=== PATIENT | male | born 1980 | race Caucasian/White ===

== ENCOUNTER 2020-06-03 07:35 | Outpatient (REF) | payer OTHER, SELFPAY ==
[2020-06-03 11:07] LABS: Anion Gap 12 (12-20); Blood Urea Nitrogen 19 mg/dL (9-16); Calcium 9.1 mg/dL (8.4-10.2); Carbon Dioxide 28 mmol/L (22-29); Chloride 101 mmol/L (96-108); Estimated Glomerular Filt Rate > 60; Glucose Fasting 92 mg/dL (60-99); Potassium 4.6 mmol/l (3.3-5.1); Sodium 136 mmol/L (135-145)
[2020-06-03 11:16] LABS: Microalbumin Urine < 5.0 mg/L
== END 2020-06-03 07:36 | disposition home or self-care (01) ==
LOC: HO.WFDLDS 07:35
PROVIDERS: PCP Family Medicine; Visit Provider Family Medicine
DX: I10 Essential (primary) hypertension (principal)
CPT/HCPCS: 80048; 82043

== ENCOUNTER → 2020-07-29 09:21 | Outpatient (BNVA) | payer OTHER, SELFPAY | PROVIDERS: PCP Family Medicine; Visit Provider Nurse Practitioner Family | DX: Z76.89 Persons encountering health services in other specified circumstances (principal) ==

== ENCOUNTER 2021-03-19 09:03 | Outpatient (REF) | payer OTHER, SELFPAY ==
[2021-03-19 11:45] LABS: Alanine Aminotransferase 33 U/L (0-40); Albumin Level 4.3 g/dL (3.5-5.0); Alkaline Phosphatase 48 U/L (39-117); Anion Gap 13 (12-20); Aspartate Amino Transferase 31 U/L (5-37); Bilirubin Total 0.9 mg/dL (0.0-1.0); Blood Urea Nitrogen 16 mg/dL (9-16); Calcium 9.7 mg/dL (8.4-10.2); Carbon Dioxide 27 mmol/L (22-29); Chloride 103 mmol/L (96-108); Cholesterol 222 mg/dL; Estimated Glomerular Filt Rate > 60; Glucose Fasting 95 mg/dL (60-99); HDL Cholesterol 37 mg/dL; LDL Cholesterol Calculated 137 mg/dl; Potassium 4.5 mmol/L (3.3-5.1); Sodium 138 mmol/L (135-145); Total Protein 7.4 g/dL (6.5-8.0); Triglycerides 242 mg/dL
[2021-03-19 12:10] LABS: TSH reflex Free T4 2.62 uIU/mL (0.32-4.0)
== END 2021-03-19 09:04 | disposition home or self-care (01) ==
LOC: HO.WFDLDS 09:03
PROVIDERS: Visit Provider Family Medicine
DX: Z00.00 Encounter for general adult medical examination without abnormal findings (principal)
CPT/HCPCS: 36415; 80053; 80061; 84443

== ENCOUNTER 2021-06-17 09:59 | Outpatient (REF) | payer OTHER, SELFPAY ==
[2021-06-17 11:26] LABS: Cholesterol 210 mg/dL; HDL Cholesterol 36 mg/dL; LDL Cholesterol Calculated 130 mg/dl; Triglycerides 223 mg/dL
[2021-06-17 11:47] LABS: Prostate Specific Antigen Scr 0.26 ng/mL (<0.05-4.0)
== END 2021-06-17 10:00 | disposition home or self-care (01) ==
LOC: HO.WFDLDS 09:59
PROVIDERS: Visit Provider Family Medicine
DX: Z00.00 Encounter for general adult medical examination without abnormal findings (principal); Z12.5 Encounter for screening for malignant neoplasm of prostate
CPT/HCPCS: 36415; 80061; 84153

== ENCOUNTER 2022-04-01 07:26 | Outpatient (REF) | payer OTHER, SELFPAY ==
[2022-04-01 11:50] LABS: Alanine Aminotransferase 38 U/L (0-40); Albumin Level 3.9 g/dL (3.5-5.0); Alkaline Phosphatase 58 U/L (39-117); Anion Gap 15 (12-20); Aspartate Amino Transferase 26 U/L (5-37); Blood Urea Nitrogen 20 mg/dL (9-16); Calcium 9.3 mg/dL (8.4-10.2); Carbon Dioxide 26 mmol/L (22-29); Chloride 101 mmol/L (96-108); Cholesterol 243 mg/dL; Estimated Glomerular Filt Rate > 60; Glucose Fasting 101 mg/dL (60-99); HDL Cholesterol 42 mg/dL; LDL Cholesterol Calculated 149 mg/dl; Potassium 4.9 mmol/L (3.3-5.1); Sodium 137 mmol/L (135-145); Total Protein 6.9 g/dL (6.5-8.0); Triglycerides 261 mg/dL
[2022-04-01 12:15] LABS: TSH reflex Free T4 2.67 uIU/mL (0.32-4.0)
[2022-04-01 12:27] LABS: Creatinine Urine 174.36 mg/dL; Microalbum/Creatinine Ratio Ur 5.7 ug/mg cr
== END 2022-04-01 07:27 | disposition home or self-care (01) ==
LOC: HO.WFDLDS 07:26
PROVIDERS: Visit Provider Family Medicine
DX: Z00.00 Encounter for general adult medical examination without abnormal findings (principal); I10 Essential (primary) hypertension
CPT/HCPCS: 36415; 80053; 80061; 82043; 84443

== ENCOUNTER 2022-06-10 09:03 | Outpatient (REF) | payer OTHER, SELFPAY ==
[2022-06-10 11:41] LABS: Cholesterol 145 mg/dL; HDL Cholesterol 32 mg/dL; LDL Cholesterol Calculated 69 mg/dl; Triglycerides 224 mg/dL
== END 2022-06-10 09:04 | disposition home or self-care (01) ==
LOC: HO.WFDLDS 09:03
PROVIDERS: Visit Provider Family Medicine
DX: Z00.00 Encounter for general adult medical examination without abnormal findings (principal)
CPT/HCPCS: 36415; 80061

== ENCOUNTER 2022-10-14 09:21 | Outpatient (REF) | payer OTHER, SELFPAY ==
--- NOTE | ~2022-10-14 | US_ITS ---
EXAMINATION: US ABDOMEN LIMITED CLINICAL INFORMATION: Right upper quadrant pain.. COMPARISON: None TECHNIQUE: Real-time imaging of the right upper quadrant abdominal viscera.: Doppler exam used. FINDINGS: PANCREAS: Obscured by bowel gas LIVER: Diffuse increased echogenicity of liver parenchyma due to fatty change. No focal liver lesion or intrahepatic bile duct dilatation. GALLBLADDER: Multiple small gallstones present. There is gallbladder wall thickening measuring 0.5 cm. Small volume of fluid in the gallbladder wall. Positive ultrasound Colbert's sign. Findings consistent with an acute cholecystitis. COMMON BILE DUCT: Normal in caliber measuring 0.3 cm in diameter. RIGHT KIDNEY: Normal. No hydronephrosis. No renal calculi or focal parenchymal lesions. The kidney measures 11.6 cm in maximum dimension. FREE FLUID: None. US/US abdomen limited IMPRESSION: 1. Cholelithiasis. Gallbladder wall thickening and small volume of fluid in the gallbladder wall. Positive ultrasound Colbert's sign. Findings consistent with an acute cholecystitis. 2. No bile duct dilatation. 3. Diffuse fatty change of liver.
[2022-10-14 11:43] LABS: MANUAL DIFF FLAG NO
[2022-10-14 12:06] LABS: Basophils Absolute Auto 0.1 X10*3/uL (0.0-0.2); Basophils Percent Auto 0.7 % (0-2); Eosinophils Percent Auto 0.2 % (0-4); Hematocrit 42.4 % (42.0-52.0); Hemoglobin 14.6 g/dl (14.0-18.0); Imm Gran Abs Auto 0.08 X10*3/uL (0.00-0.03); Imm Gran Pct Auto 0.6 % (0.0-0.4); Lymphocytes Absolute Auto 0.9 X10*3/uL (1.2-4.9); Lymphocytes Percent Auto 7.1 % (20-40); Mean Corpuscular HGB Conc 34.4 g/dl (31.0-36.0); Mean Corpuscular Hemoglobin 31.5 pg (27.0-33.0); Mean Corpuscular Volume 91.6 fL (80.0-98.0); Mean Platelet Volume 10.2 fL (9.4-12.4); Monocytes Absolute Auto 0.6 X10*3/uL (0.1-1.2); Monocytes Percent Auto 4.6 % (2-11); Neutrophils Absolute Auto 10.8 x10*3/uL (2.0-8.3); Neutrophils Percent Auto 86.8 % (45-73); Platelet Count 348 X10*3/uL (160-400); Red Blood Count 4.63 X10*6/uL (4.60-5.80); Red Cell Distribution Width 12.3 % (11.0-16.0); White Blood Count 12.5 X10*3/uL (4.8-10.8)
[2022-10-14 12:23] LABS: Alanine Aminotransferase 32 U/L (0-40); Albumin Level 4.6 g/dL (3.5-5.0); Alkaline Phosphatase 65 U/L (39-117); Amylase 24 U/L (28-100); Anion Gap 18 (12-20); Aspartate Amino Transferase 28 U/L (5-37); Bilirubin Total 1.2 mg/dL (0.0-1.0); Blood Urea Nitrogen 19 mg/dL (9-16); Calcium 9.8 mg/dL (8.4-10.2); Carbon Dioxide 24 mmol/L (22-29); Chloride 98 mmol/L (96-108); Estimated Glomerular Filt Rate > 60; Glucose Fasting 119 mg/dL (60-99); Lipase 16 U/L (8-78); Potassium 4.7 mmol/L (3.3-5.1); Sodium 135 mmol/L (135-145); Total Protein 7.6 g/dL (6.5-8.0)
== END 2022-10-14 09:22 | disposition home or self-care (01) ==
LOC: HO.WFDLDS 09:21
PROVIDERS: Visit Provider Nurse Practitioner Family
DX: R10.11 Right upper quadrant pain (principal)
CPT/HCPCS: 36415; 76705; 80053; 82150; 83690; 85025

== ENCOUNTER 2022-10-15 09:54 | Inpatient (IN) | payer OTHER, SELFPAY ==
[2022-10-15] VITALS (14 sets, daily range): BP systolic 97–150; BP diastolic 42–79; PULSE 75–106; RESP 14–20; TEMP 36.5–37.1; O2SAT 92–99; BMI 39.4; BMI 41.3
--- NOTE | 2022-10-15 11:03 | MHC.EDTECH ---
labs collected and sent
[2022-10-15 11:05] LABS: MANUAL DIFF FLAG NO
[2022-10-15 11:07] LABS: Basophils Absolute Auto 0.1 X10*3/uL (0.0-0.2); Basophils Percent Auto 0.5 % (0-2); Eosinophils Absolute Auto 0.1 X10*3/uL (0.0-0.4); Eosinophils Percent Auto 0.6 % (0-4); Hematocrit 43.8 % (42.0-52.0); Hemoglobin 14.8 g/dl (14.0-18.0); Imm Gran Abs Auto 0.06 X10*3/uL (0.00-0.03); Imm Gran Pct Auto 0.4 % (0.0-0.4); Lymphocytes Absolute Auto 0.9 X10*3/uL (1.2-4.9); Lymphocytes Percent Auto 6.5 % (20-40); Mean Corpuscular HGB Conc 33.8 g/dl (31.0-36.0); Mean Corpuscular Hemoglobin 31.1 pg (27.0-33.0); Mean Platelet Volume 9.4 fL (9.4-12.4); Monocytes Absolute Auto 1.2 X10*3/uL (0.1-1.2); Monocytes Percent Auto 8.2 % (2-11); Neutrophils Absolute Auto 12.1 x10*3/uL (2.0-8.3); Neutrophils Percent Auto 83.8 % (45-73); Platelet Count 347 X10*3/uL (160-400); Red Blood Count 4.76 X10*6/uL (4.60-5.80); Red Cell Distribution Width 12.3 % (11.0-16.0); White Blood Count 14.4 X10*3/uL (4.8-10.8)
[2022-10-15 11:33] LABS: Alanine Aminotransferase 28 U/L (0-40); Albumin Level 4.3 g/dL (3.5-5.0); Alkaline Phosphatase 75 U/L (39-117); Anion Gap 14 (12-20); Aspartate Amino Transferase 26 U/L (5-37); Blood Urea Nitrogen 11 mg/dL (9-16); Calcium 9.2 mg/dL (8.4-10.2); Carbon Dioxide 28 mmol/L (22-29); Chloride 99 mmol/L (96-108); Estimated Glomerular Filt Rate > 60; Glucose Random 101 mg/dL (60-115); Potassium 4.5 mmol/L (3.3-5.1); Sodium 136 mmol/L (135-145); Total Protein 7.7 g/dL (6.5-8.0)
--- NOTE | 2022-10-15 12:51 | ED_ITS ---
HPI - Abdominal Pain General Chief Complaint: Abdominal Pain Stated Complaint: enflamed gal bladder/stone Time Seen by Provider: 10/15/22 12:15 Source: patient Mode of arrival: ambulatory Limitations: no limitations History of Present Illness HPI narrative: 39-year-old male with history of hypertension, hyperlipidemia presents the ER with complaints of constant right upper quadrant abdominal pain since yesterday. He has had intermittent pain since Tuesday. He had a outpatient ultrasound yesterday which was concerning for acute cholecystitis and was referred into the ER for further evaluation. He does report decreased p.o. intake. No nausea, vomiting, fevers, urinary symptoms, diarrhea or constipation. Patient had crackers and Gatorade at 06:00 MD elicited complaint: abdominal pain Related Data Home Medications Medication Instructions Recorded Confirmed famotidine 20 mg tablet 20 mg PO DAILY 10/15/22 10/15/22 multivitamin 1 tab PO DAILY 10/15/22 10/15/22 Previous Rx's Medication Instructions Recorded lisinopril 20 1 tab PO DAILY 30 days #30 tabs 09/21/22 mg-hydrochlorothiazide 25 mg tablet atorvastatin 20 mg tablet 20 mg PO BEDTIME #30 tabs 09/22/22 Allergies Allergy/AdvReac Type Severity Reaction Status Date / Time No Known Allergies Allergy Unverified 10/14/22 08:53 Review of Systems Review of Systems Yes all other systems are reviewed and are negative Constitutional: Reports no additional constitutional complaints, Denies body ache(s), Denies chills, Denies fever(s), Denies headache(s) and Denies weakness Eyes: Reports no additional eye complaints and Denies change in vision Reports system reviewed and no additional complaints, except as documented, Denies dizziness, Denies headache(s), Denies nasal congestion, Denies nasal discharge and Denies neck pain Cardiovascular: Reports no additional cardiovascular complaints, Denies chest pain, Denies leg edema and Denies dyspnea Respiratory: Reports no additional respiratory complaints, Denies cough and De nies dyspnea Gastrointestinal: Reports no additional gastrointestinal complaints, Reports abdominal pain, Denies diarrhea, Denies nausea and Denies vomiting Genitourinary: Denies urinary incontinence Musculoskeletal: Reports no additional musculoskeletal complaints, Denies back pain, Denies arthralgias, Denies joint swelling, Denies neck pain, Denies numbness and Denies tingling Skin/Breast: Reports system reviewed and no additional complaints, except as docu and Denies rash Reports system reviewed and no additional complaints, except as documented, Denies dizziness, Denies headache(s), Denies numbness, Denies tingling and Denies weakness PMFSH Past Medical History Attestation statement: The following information was validated with the patient. Source: old records reviewed and nursing notes reviewed Surgical History History of hernia repair Social History Social History Housing: House Alcohol intake: current Alcohol intake frequency: a few times a week Patient Tobacco Use Status: Never used Tobacco Smoked in Last 30 Days: No e-Cigarette/Vaping Use: Never Used Second Hand Smoke Exposure: No Use of substances other than those prescribed or required for medical reasons: No Are you DNR?: No Advance Directives: Yes Advance Directives Information Provided: Yes Advance Directives on File: No Advance Directives Date on File: 10/15/22 Recently lost weight without trying: No Nutrition Risks: No Nutritional Risk service: No Current occupational status: employed Current occupational exposures/hazards: No Cognitive needs: No Hearing needs: No Vision needs: No Physical Exam ED Vital Signs: Vital Signs - 24 hr 10/15/22 10:23 10/15/22 12:44 10/15/22 13:01 Temperature 98.1 F 98.2 F Pulse Rate 106 H 84 Respiratory Rate 18 19 20 Blood Pressure 128/68 127/72 Pulse Oximetry 96 99 Oxygen Delivery Method Room Air Room Air 10/15/22 14:01 Temperature 98.7 F Pulse Rate 89 Respiratory Rate 16 Blood Pressure 150/79 H Pulse Oximetry 98 Oxygen Delivery Method Room Air BMI result Body Mass Index 39.4 Const General: cooperative, healthy appearing and comfortable Orientation/consciousness: patient oriented x3 Limitations: no limitations HENMT Head: Yes normal to inspection Ears: hearing grossly normal bilaterally Eyes General: appearance normal, both eyes and all related structures Neck Neck: Yes normal visual inspection Chest Chest palpation & inspection: normal inspection of the chest Resp Effort & Inspection: normal respiratory effort Auscultation: clear to auscultation bilaterally Cardio Rate: regular rate Rhythm: regular rhythm Peripheral pulses: Peripheral pulses 2+ throughout GI Inspection: Yes normal to inspection Palpation (GI): Soft to palpation and Tenderness to palpation present (GI) in the RUQ General: Yes no CVA tenderness Back/Spine/Pelvis Back: no CVA tenderness Thoracic/Lumbar Spine: thoracic and lumbar spine normal to inspection Skin General skin exam: no rashes or lesions noted Neuro General: patient oriented x3 and moves all extremities Cognition (Neuro): normal cognition Gait exam (Neuro): Normal gait present Extrem General: Yes normal to inspection, Yes no pedal edema and Yes no calf tenderness Medical Decision Making Medical Decision Making MDM Narrative: 41-year-old male here with intermittent right upper quadrant abdominal pain since Tuesday constant since yesterday with an outpatient ultrasound concerning for acute cholecystitis. Patient with significant tenderness over the right upper quadrant with guarding. Reviewed outpatient ultrasound which shows gallstones, gallbladder wall thickening, positive Colbert sign consistent with acute cholecystitis will obtain labs, UA, COVID screen. Will obtain a surgery consultation anticipate admission Differential Diagnosis Differential Diagnoses: The differential diagnosis associated with the presentation includes cholelithiasis, cholecystitis Admission/Observation Consideration of admission/observation: Escalation of care including admission/observation considered outpatient ultrasound with acute cholecystitis needing surgery consultation and admission Consult Healthcare Provider Management of the patient was discussed with: Sludge Filtration Attendant spoke to on-call surgeon Dr. Villaseñor who accepted admission Lab Data [facility] Lab Attestation statement: I reviewed the patient's lab results. 10/15/22 11:01 10/15/22 11:01 Labs: Lab Results 10/15/22 10/15/22 10/15/22 Range/Units 11:01 11:01 12:32 WBC 14.4 H (4.8-10.8) X10*3/uL RBC 4.76 (4.60-5.80) X10*6/uL Hgb 14.8 (14.0-18.0) g/dl Hct 43.8 (42.0-52.0) % MCV 92.0 (80.0-98.0) fL MCH 31.1 (27.0-33.0) pg MCHC 33.8 (31.0-36.0) g/dl RDW 12.3 (11.0-16.0) % Plt Count 347 (160-400) X10*3/uL MPV 9.4 (9.4-12.4) fL Immature Gran % (Auto) 0.4 (0.0-0.4) % Neut % (Auto) 83.8 H (45-73) % Lymph % (Auto) 6.5 L (20-40) % [place] % (Auto) 8.2 (2-11) % Eos % (Auto) 0.6 (0-4) % Baso % (Auto) 0.5 (0-2) % Lymph # (Auto) 0.9 L (1.2-4.9) X10*3/uL [place] # (Auto) 1.2 (0.1-1.2) X10*3/uL Eos # (Auto) 0.1 (0.0-0.4) X10*3/uL Baso # (Auto) 0.1 (0.0-0.2) X10*3/uL Abs Immat Gran (auto) 0.06 H (0.00-0.03) X10*3/uL Absolute Neuts (auto) 12.1 H (2.0-8.3) x10*3/uL Absolute Nucleated RBC 0.000 (0.0-0.012) X10*3/uL Nucleated RBC % (auto) 0.0 (0.0-0.2) /100WBC Sodium 136 (135-145) mmol/L Potassium 4.5 (3.3-5.1) mmol/L Chloride 99 (96-108) mmol/L Carbon Dioxide 28 (22-29) mmol/L Anion Gap 14 (12-20) BUN 11 (9-16) mg/dL Creatinine 1.08 (0.5-1.4) mg/dL Estim Creat Clear Calc 118.0 Estimated GFR > 60 Random Glucose 101 (60-115) mg/dL Calcium 9.2 D (8.4-10.2) mg/dL Total Bilirubin 2.0 H (0.0-1.0) mg/dL AST 26 (5-37) U/L ALT 28 (0-40) U/L Alkaline Phosphatase 75 (39-117) U/L Total Protein 7.7 (6.5-8.0) g/dL Albumin 4.3 (3.5-5.0) g/dL Urine Color Urine Appearance Urine pH (5.0-9.0) Ur Specific [place] (1.005-1.025) Urine Protein (Neg-Trace) mg/dL Urine Glucose (UA) (Negative) mg/dL Urine Ketones (Negative) mg/dL Urine Blood (Negative) Urine Nitrite (Negative) Ur Leukocyte Esterase (Negative) Urine RBC (0-2) /HPF Urine WBC (0-5) /HPF Ur Squamous Epith Cells (0-2) /HPF Urine Bacteria (None Seen) Hyaline Casts (0-2) /LPF COVID-19 (ERIC) Negative (Negative) COVID-19 Clin Com See Note 10/15/22 Range/Units 12:53 WBC (4.8-10.8) X10*3/uL RBC (4.60-5.80) X10*6/uL Hgb (14.0-18.0) g/dl Hct (42.0-52.0) % MCV (80.0-98.0) fL MCH (27.0-33.0) pg MCHC (31.0-36.0) g/dl RDW (11.0-16.0) % Plt Count (160-400) X10*3/uL MPV (9.4-12.4) fL Immature Gran % (Auto) (0.0-0.4) % Neut % (Auto) (45-73) % Lymph % (Auto) (20-40) % [place] % (Auto) (2-11) % Eos % (Auto) (0-4) % Baso % (Auto) (0-2) % Lymph # (Auto) (1.2-4.9) X10*3/uL [place] # (Auto) (0.1-1.2) X10*3/uL Eos # (Auto) (0.0-0.4) X10*3/uL Baso # (Auto) (0.0-0.2) X10*3/uL Abs Immat Gran (auto) (0.00-0.03) X10*3/uL Absolute Neuts (auto) (2.0-8.3) x10*3/uL Absolute Nucleated RBC (0.0-0.012) X10*3/uL Nucleated RBC % (auto) (0.0-0.2) /100WBC Sodium (135-145) mmol/L Potassium (3.3-5.1) mmol/L Chloride (96-108) mmol/L Carbon Dioxide (22-29) mmol/L Anion Gap (12-20) BUN (9-16) mg/dL Creatinine (0.5-1.4) mg/dL Estim Creat Clear Calc Estimated GFR Random Glucose (60-115) mg/dL Calcium (8.4-10.2) mg/dL Total Bilirubin (0.0-1.0) mg/dL AST (5-37) U/L ALT (0-40) U/L Alkaline Phosphatase (39-117) U/L Total Protein (6.5-8.0) g/dL Albumin (3.5-5.0) g/dL Urine Color Dark Yellow Urine Appearance Clear Urine pH 6.5 (5.0-9.0) Ur Specific [place] 1.020 (1.005-1.025) Urine Protein 30 (1+) H (Neg-Trace) mg/dL Urine Glucose (UA) Negative (Negative) mg/dL Urine Ketones Trace (Negative) mg/dL Urine Blood Negative (Negative) Urine Nitrite Negative (Negative) Ur Leukocyte Esterase Negative (Negative) Urine RBC 0-2 (0-2) /HPF Urine WBC 0-5 (0-5) /HPF Ur Squamous Epith Cells 0-2 (0-2) /HPF Urine Bacteria None Seen (None Seen) Hyaline Casts 0-2 (0-2) /LPF COVID-19 (ERIC) (Negative) COVID-19 Clin Com Medications Administered Discontinued Medications Generic Name Dose Route Start Last Admin Trade Name Freq PRN Reason Stop Dose Admin Sodium Chloride 1,000 mls @ 999 mls/hr 10/15/22 12:27 10/15/22 13:55 Ns IV 10/15/22 13:27 Infused .Q1H1M STA Infusion Morphine Sulfate 4 mg 10/15/22 12:27 10/15/22 13:01 Morphine Sulfate 4 Mg/Ml Cartridge IVPUSH 10/15/22 12:28 4 mg ONCE ONE Administration Protocol Ondansetron HCl 4 mg 10/15/22 12:27 10/15/22 13:01 Ondansetron Hcl 4 Mg/2 Ml Vial IVPUSH 10/15/22 12:28 4 mg ONCE ONE Administration Discharge Plan Discharge Clinical Impression: Cholecystitis Patient Disposition: Admitted As Inpatient
[2022-10-15 12:55] LABS: COVID-19 Test Negative (Negative); IDNOW Serial# 9DB6401D
[2022-10-15 12:59] LABS: Appearance Urine Clear; Color Urine Dark Yellow; Glucose Urine UA Negative (Negative); Leukocyte Esterase Urine Negative (Negative); Nitrite Urine Negative (Negative); PH 6.5 (5.0-9.0); UMIC TRIGGER UACC YES; Urine Blood Negative (Negative); Urine Ketones Trace mg/dL (Negative); Urine Protein 30 (1+) mg/dL (Neg-Trace)
[2022-10-15] MEDS: Morphine Sulfate 4 MG/ML CARTRIDGE IVPUSH (13:01)
[2022-10-15] MEDS: ondansetron HCL 4 MG/2 ML VIAL IVPUSH (13:01)
[2022-10-15] MEDS: 0.9 % Sodium Chloride 1,000 ML 999 ML IV (13:01)
[2022-10-15 13:02] LABS: Bacteria Urine None Seen (None Seen); Hyaline Casts Urine 0-2 /LPF (0-2); RBC Urine 0-2 /HPF (0-2); Squamous Epithelial Cell Urine 0-2 /HPF (0-2); WBC Urine 0-5 /HPF (0-5)
--- NOTE | 2022-10-15 13:24 | P.HPGS_ITS ---
History of Present Illness History of Present Illness Date of Service: 10/15/22 Chief complaint: enflamed gal bladder/stone Narrative: Serafin Jackson is a 41 year old male with a history of obstructive sleep apnea, obesity, SANCHEZ, hypertension, mixed lipidemia who is seen by way of the emergency department because of abdominal pain that started Tuesday night and localized to his right upper quadrant. Patient is noted to have a leukocytosis and ultrasound demonstrating findings consistent with acute calculous cholecystitis. He does note a prior family history of gallbladder disease. Review of Systems Review of Systems: Yes all other systems are reviewed and are negative Constitutional: Constitutional: Reports as per [facility] Surgical History Surgical History History of hernia repair Social History Social History Housing: House Alcohol intake: current Alcohol intake frequency: a few times a week Patient Tobacco Use Status: Never used Tobacco Smoked in Last 30 Days: No e-Cigarette/Vaping Use: Never Used Second Hand Smoke Exposure: No Use of substances other than those prescribed or required for medical reasons: No Advance Directives: Yes Advance Directives Information Provided: Yes Advance Directives on File: No service: No Current occupational status: employed Current occupational exposures/hazards: No Cognitive needs: No Hearing needs: No Vision needs: No Meds Allergies Allergy/AdvReac Type Severity Reaction Status Date / Time No Known Allergies Allergy Unverified 10/14/22 08:53 Active Medications: Current Medications Sodium Chloride (Ns) 1,000 mls @ 999 mls/hr IV .Q1H1M STA Stop: 10/15/22 13:27 Last Admin: 10/15/22 13:01 Dose: 999 mls/hr Pharmacy Consult (Consult Rx Perform Med Rec) 1 each MISCELLANE ONCE PRN PRN Reason: Consult order Home Medications Medication Instructions Recorded Confirmed Last Taken Type famotidine 20 mg tablet 20 mg PO DAILY 10/15/22 10/15/22 Unknown History multivitamin 1 tab PO DAILY 10/15/22 10/15/22 Unknown History Physical Exam Vital Signs: Vital Signs: Last Vital Signs Temp 98.2 F 10/15/22 12:44 Pulse 84 10/15/22 12:44 Resp 20 10/15/22 13:01 BP 127/72 10/15/22 12:44 Pulse Ox 99 10/15/22 12:44 O2 Del Method 10/15/22 12:44 BMI result Body Mass Index 39.4 The patient is non-toxic & in good spirits NC/AT, PERRLA, EOMI Mood, affect & judgment all appear appropriate Sclera anicteric conjunctiva pink and moist Oropharynx is clear with no aphthous ulcers, Mallampati class 4, mucous membranes moist Neck is supple with no masses, adenopathy or bruits Thyroid is nontender and free of dominant masses Heart is regular, normal S1-S2 no rubs or murmurs Lungs are clear and equal anteriorly with no audible wheezing, rubs or dullness to percussion No CVA tenderness present Abdomen is obese with no demonstrable hernias. Right upper quadrant pain with guarding is noted. No HSM, rebound, rigidity,, masses or bruits are present. Rectal exam is deferred Skin has good turgor and is free of rashes Extremities free of cyanosis clubbing edema Results Results Labs: Short CBC 10/15/22 Range/Units 11:01 WBC 14.4 H (4.8-10.8) X10*3/uL Hgb 14.8 (14.0-18.0) g/dl Hct 43.8 (42.0-52.0) % Plt Count 347 (160-400) X10*3/uL BMP 10/15/22 11:01 Sodium 136 Potassium 4.5 Chloride 99 Carbon Dioxide 28 BUN 11 Creatinine 1.08 Calcium 9.2 D Liver Function 10/15/22 Range/Units 11:01 Total Bilirubin 2.0 H (0.0-1.0) mg/dL AST 26 (5-37) U/L ALT 28 (0-40) U/L Alkaline Phosphatase 75 (39-117) U/L Albumin 4.3 (3.5-5.0) g/dL Urine 10/15/22 Range/Units 12:53 Urine Color Dark Yellow Urine Appearance Clear Urine pH 6.5 (5.0-9.0) Ur Specific [place] 1.020 (1.005-1.025) Urine Protein 30 (1+) H (Neg-Trace) mg/dL Urine Glucose (UA) Negative (Negative) mg/dL Abdominal ultrasound report/results: report reviewed and image reviewed Assessment and Plan (1) Acute calculous cholecystitis: Status: Acute (2) RENETTA (obstructive sleep apnea): Status: Acute (3) HTN (hypertension): Status: Acute (4) High cholesterol: Status: Acute (5) Elevated fasting blood sugar: Status: Acute (6) Sleep apnea: Status: Acute (7) Low HDL (under 40): Status: Acute (8) Mixed hyperlipidemia: Status: Acute Plan I explained the symptoms of biliary colic and recommended laparoscopic or open cholecystectomy. I reviewed the option of continued observation and 2nd opinion which was declined. I also reviewed the inherent risks to surgery which include, but are not limited to: Bleeding that could require another operation or blood transfusion, the need for open surgery, the unlikely but possible issue of bile leak that could require an ERCP, the risk of retained common duct stones that could require an ERCP, the risk of common bile duct injury which would require transfer to a larger institution for another operation. Patient seemed to understand her options, declined a information delivery analyst or 2nd opinion and wants to proceed. Instructions regarding diet and activity reviewed and apparently understood. The patient is advised to avoid rich fatty foods postoperatively to avoid GI distress/diarrhea and advised to not lift more than 20 lb for medical reasons to minimize the risk of hernia postoperatively. I recommended that she discuss these restrictions with her employer and that she is not disabled during this time frame. The patient will void his bladder coldfusion, receive Ancef, 2 g and have SCDs in place. Will proceed as soon as the OR is available. Time Spent With Patient Time: Total time managing care of this patient today ____ minutes. Quality Stroke Does the patient have a stroke diagnosis?: No VTE Prior VTE?: No VTE Risk Level:: Surgical - moderate VTE Device Contraindication: N/A - Device Ordered VTE Drug Contraindication: Treatment Not Tolerated Procedures Date of Service Date of Service: 10/15/22
--- NOTE | 2022-10-15 13:36 | HO.ANESPROP2 ---
HPI - Anesthesia Eval Consult details Narrative: cholecystitis PMFSH Active Problems Active Problems: All Active Problems (Updated 10/15/22 @ 13:25 by Ti Villaseñor MD) High cholesterol (Acute) HTN (hypertension) (Acute) RENETTA (obstructive sleep apnea) (Acute) Acute calculous cholecystitis (Acute) Cholecystitis (Acute) RUQ abdominal pain (Acute) Elevated fasting blood sugar (Acute) Sleep apnea (Acute) Adult general medical exam (Acute) Low HDL (under 40) (Acute) Annual visit for general adult medical examination without abnormal findings (Acute) Screening for prostate cancer (Acute) Mixed hyperlipidemia (Acute) Laboratory examination ordered as part of a routine general medical examination (Acute) Essential hypertension (Acute) Family History Family history of problems with anesthesia: No Surgical History Surgical History History of hernia repair History of Problems with Anesthesia: No Social History Social History Housing: House Alcohol intake: current Alcohol intake frequency: a few times a week Patient Tobacco Use Status: Never used Tobacco Smoked in Last 30 Days: No e-Cigarette/Vaping Use: Never Used Second Hand Smoke Exposure: No Use of substances other than those prescribed or required for medical reasons: No Advance Directives: Yes Advance Directives Information Provided: Yes Advance Directives on File: No service: No Current occupational status: employed Current occupational exposures/hazards: No Cognitive needs: No Hearing needs: No Vision needs: No Meds Allergies Allergy/AdvReac Type Severity Reaction Status Date / Time No Known Allergies Allergy Unverified 10/14/22 08:53 Active Medications: Current Medications Pharmacy Consult (Consult Rx Perform Med Rec) 1 each MISCELLANE ONCE PRN PRN Reason: Consult order Exam Exam Date and Time: October 15, 2022 1336 Height,Weight and Vital Signs: Height 5 ft 10 in Weight 124.738 kg Last Vital Signs Temp 98.2 F 10/15/22 12:44 Pulse 84 10/15/22 12:44 Resp 20 10/15/22 13:01 BP 127/72 10/15/22 12:44 Pulse Ox 99 10/15/22 12:44 O2 Del Method 10/15/22 12:44 Pertinent Lab Results Pertinent Lab Results: Laboratory Tests 10/15/22 10/15/22 10/15/22 11:01 11:01 12:32 WBC 14.4 H RBC 4.76 Hgb 14.8 Hct 43.8 MCV 92.0 MCH 31.1 MCHC 33.8 RDW 12.3 Plt Count 347 MPV 9.4 Immature Gran % (Auto) 0.4 Neut % (Auto) 83.8 H Lymph % (Auto) 6.5 L [place] % (Auto) 8.2 Eos % (Auto) 0.6 Baso % (Auto) 0.5 Lymph # (Auto) 0.9 L [place] # (Auto) 1.2 Eos # (Auto) 0.1 Baso # (Auto) 0.1 Abs Immat Gran (auto) 0.06 H Absolute Neuts (auto) 12.1 H Absolute Nucleated RBC 0.000 Nucleated RBC % (auto) 0.0 Sodium 136 Potassium 4.5 Chloride 99 Carbon Dioxide 28 Anion Gap 14 BUN 11 Creatinine 1.08 Estim Creat Clear Calc 118.0 Estimated GFR > 60 Random Glucose 101 Calcium 9.2 D Total Bilirubin 2.0 H AST 26 ALT 28 Alkaline Phosphatase 75 Total Protein 7.7 Albumin 4.3 Urine Color Urine Appearance Urine pH Ur Specific [place] Urine Protein Urine Glucose (UA) Urine Ketones Urine Blood Urine Nitrite Ur Leukocyte Esterase Urine RBC Urine WBC Ur Squamous Epith Cells Urine Bacteria Hyaline Casts COVID-19 (ERIC) Negative COVID-19 Clin Com See Note 10/15/22 12:53 WBC RBC Hgb Hct MCV MCH MCHC RDW Plt Count MPV Immature Gran % (Auto) Neut % (Auto) Lymph % (Auto) [place] % (Auto) Eos % (Auto) Baso % (Auto) Lymph # (Auto) [place] # (Auto) Eos # (Auto) Baso # (Auto) Abs Immat Gran (auto) Absolute Neuts (auto) Absolute Nucleated RBC Nucleated RBC % (auto) Sodium Potassium Chloride Carbon Dioxide Anion Gap BUN Creatinine Estim Creat Clear Calc Estimated GFR Random Glucose Calcium Total Bilirubin AST ALT Alkaline Phosphatase Total Protein Albumin Urine Color Dark Yellow Urine Appearance Clear Urine pH 6.5 Ur Specific [place] 1.020 Urine Protein 30 (1+) H Urine Glucose (UA) Negative Urine Ketones Trace Urine Blood Negative Urine Nitrite Negative Ur Leukocyte Esterase Negative Urine RBC 0-2 Urine WBC 0-5 Ur Squamous Epith Cells 0-2 Urine Bacteria None Seen Hyaline Casts 0-2 COVID-19 (ERIC) COVID-19 Clin Com Airway Mallampati Class: III TM Dist: >3cm Neck ROM: Limited Heart: ttt Lungs: cta Assessment and Plan Assessment Anesthesia Assessment: Anesthesia Plan Discussed Final Anesthetic Review Family History of Problems with Anesthesia: No History of Problems with Anesthesia: No NPO: Yes ASA Class: III Final Preanesthetic Review: No Changes in Pt Med Stat, Meds/Allgs Chart Reviewed, Consent Obtained/Reviewed and Anes Risks/Benef Reviewed Patient Risk: Intermediate Procedure Risk: Intermediate Anesthetic Plan Anesthetic Plan: GA and Agree w/ Assess. and Plan Disposition: Standard PACU
--- NOTE | 2022-10-15 14:05 | PHA.MEDREC ---
Pharmacy Consult ? Medication Reconciliation Pharmacy has completed the medication reconciliation.
--- NOTE | 2022-10-15 14:07 | W.PM.OPN ---
Operative Note Operative Note Date of Service: 10/15/22 Narrative: Preop diagnosis: [Acute calculous cholecystitis] Postop diagnosis: [Same, acute gangrenous cholecystitis; omental adhesions to the liver and gallbladder] Procedure: [Laparoscopic cholecystectomy, lysis of adhesion for 36 minute] Surgeon: Ti Villaseñor MD Assist: [Madeline Gracia PA-C] Anesthesia: [GET; Marcaine, 0.5% with epi] Estimated blood loss: [3cc] Specimen: [1) gallbladder fluid for Gram stain and culture; 2) gallbladder and contact] Drain: GBAY in Morison's pouch Intraoperative findings: [Extensive adhesions from the omentum over the liver to the gallbladder. Lysis of adhesions took 36 minutes; gangrenous acute cholecystitis with friable wall. Cystic duct 5-6 mm; cystic artery 2-3 mm.] Indications: [The patient is a 41-year-old gentleman with obesity, obstructive sleep apnea, SANCHEZ, hypertension, hypercholesterolemia who developed epigastric abdominal pain Wed that has gradually progressed and localized to his right upper quadrant. He has a leukocytosis, mild elevation of his total bilirubin to 2.0, normal transaminases alkaline phosphatase and an abdominal ultrasound showing findings consistent with acute calculous cholecystitis as evidence by gallbladder wall thickening, cholelithiaasis and ultrasound a graphic Colbert's test that is positive. I recommended laparoscopic, possible open cholecystectomy, possible cholangiogram and reviewed the option of continued observation or 2nd opinion. I also reviewed the inherent risks to surgery which include, but are not limited to: Bleeding that could require another operation or blood transfusion, the need for open surgery, the unlikely but possible issue of bile leak that could require an ERCP, the risk of retained common duct stones that could require an ERCP, the risk of common bile duct injury which would require transfer to a larger institution for another operation. Patient seemed to understand options wants to proceed.] Procedure: [The patient was identified in the preoperative holding area and again an operating room. He voided his urinary bladder test preparation tutor, sequential compression stockings were in place and he received Ancef, 2 g IV. He was placed supine on the table, induced in general endotracheal anesthesia administered with excellent effect. His abdominal hair was clipped and then he was widely prepped and draped in the usual manner using ChloraPrep. An appropriate time-out was performed. Preemptive local was used at all trocar insertion sites. At the supraumbilical location and after infiltrating local, made a stab incision and placed a Veress needle without difficulty. An appropriate drop test was performed and a pneumoperitoneum of 15 mmHg was obtained using carbon dioxide. opening pressure was 7 mmHg. Next, the needle was withdrawn and a 5 mm/30 degree laparoscoped over Optiview trocar was used to access the abdomen without incident. Upon examining the abdomen, there was no evidence of injury from the Veress needle or trocar. Next, 5 mm trocars were placed in the epigastric, subcostal and right anterior axillary line just above the line of the umbilicus. Under direct laparoscopic vision, the 5 mm umbilical port was upsized to a 12 mm. The patient was then positioned in reverse Trendelenburg position and banked left. The gallbladder could not be to seen secondary to the omentum being adhesed over the liver. After careful reflection of the omentum, became apparent that it was adhesed to a gangrenous gallbladder and he see a lysis undertaken for 36 minutes to demonstrate the gangrenous gallbladder. Needle decompression with the cyst aspirate her had to be performed and the fluid was sent for Gram stain and culture. Next, the gallbladder was clearly identified and grasped by its fundus. It was retracted cranially and anteriorly and dissection began in the cystic triangle. The tissues were extremely friable due to the gangrenous nature of the gallbladder. The cystic duct was identified at its junction on the gallbladder and dissection began laterally, then circumferentially dissected using the [place] dissector and hook. The cystic artery was then carefully identified and circumferentially dissected. Once dissection of both structures was complete and the critical view of safety demonstrated, the duct and artery were double clipped proximally and once distally and sharply divided. Electrocautery was used to remove the gallbladder from its fossa on the liver. Given the friability of the gallbladder wall, some stones were spilled and retrieved at the end of the case using grasper and Endo catch bag. A 10 mm suction risk and insurance consultant was used to remove stones as well and this required up sizing the epigastric port to 12mm, which was done under direct vision. Liver bed was inspected for hemostasis and the clips were noted to be on the respective structures. The gallbladder was placed in an Endo-Catch bag and delivered through the umbilicus under direct laparoscopic vision. The abdomen was again inspected with the laparoscoped and a abdomen deflated to assess for hemostasis. The patient was returned to neutral position, and a 10 mm Justen-Gutierrez drain placed in the right upper quadrant and Morison's pouch. the abdomen deflated and the fascia of the supraumbilical incision closed with interrupted Vicryl sutures. Skin was closed with 4-0 Monocryl subcuticular sutures. Mastisol and Steri-Strips were applied followed by Band-Aids. The patient tolerated the procedure well and was extubated recovered in stable condition. All sponge instrument counts were correct. At the patient's request I spoke with his , Nighat of the operation and postoperative plan. She will bring his CPAP machine. She also provided me her cell phone [phone]. Her questions seemed to be satisfactorily answered.]
[2022-10-15] MEDS: Piperacillin Sodium/Tazobactam 3.375 GM in 0.9 % Sodium Chloride 50 ML IV ×2 (17:54→23:14)
[2022-10-15] MEDS: Lactated Ringers 1,000 ML 125 ML IVCONT (19:54)
[2022-10-15] MEDS: Docusate Sodium 100 MG CAPSULE 200 MG PO (19:54)
[2022-10-15] MEDS: HYDROmorphone HCl 0.5 MG/0.5 ML SYRINGE 0.25 MG IVPUSH (23:08)
[2022-10-16] MEDS: Lactated Ringers 1,000 ML 125 ML IVCONT ×2 (03:46→11:20)
[2022-10-16 03:47] VITALS: BP 122/65; PULSE 64; RESP 16; TEMP 37.1; O2SAT 95
[2022-10-16] MEDS: Pantoprazole Sodium 40 MG/10 ML VIAL IVPUSH (06:15)
[2022-10-16] MEDS: Piperacillin Sodium/Tazobactam 3.375 GM in 0.9 % Sodium Chloride 50 ML IV ×4 (06:20→23:04)
[2022-10-16 06:37] LABS: Alanine Aminotransferase 70 U/L (0-40); Albumin Level 3.5 g/dL (3.5-5.0); Alkaline Phosphatase 62 U/L (39-117); Anion Gap 14 (12-20); Aspartate Amino Transferase 79 U/L (5-37); Bilirubin Total 1.5 mg/dL (0.0-1.0); Blood Urea Nitrogen 11 mg/dL (9-16); Calcium 8.7 mg/dL (8.4-10.2); Carbon Dioxide 26 mmol/L (22-29); Chloride 100 mmol/L (96-108); Creatinine Clr Calc Pharmacy 133.3; Estimated Glomerular Filt Rate > 60; Glucose Random 124 mg/dL (60-115); Potassium 4.4 mmol/L (3.3-5.1); Sodium 136 mmol/L (135-145); Total Protein 6.1 g/dL (6.5-8.0)
[2022-10-16 06:50] VITALS: BP 114/58; PULSE 70; RESP 18; TEMP 37; O2SAT 94
[2022-10-16] MEDS: Docusate Sodium 100 MG CAPSULE 200 MG PO ×2 (07:34→20:06)
--- NOTE | 2022-10-16 09:26 | P.PNGS_ITS ---
Subjective Subjective Date of Service: 10/16/22 Patient reports: feels better and tolerating liquids well Interval history: The patient denies any chest pain, difficulty breathing or shortness of breath. He reports that his presenting abdominal pain is improved. He is tolerating liquids with no nausea or vomiting. Physical Exam Vital Signs: Vital Signs: Last Vital Signs Temp 98.6 F 10/16/22 06:50 Pulse 70 10/16/22 06:50 Resp 18 10/16/22 06:50 BP 114/58 L 10/16/22 06:50 Pulse Ox 94 10/16/22 06:50 O2 Del Method 10/16/22 06:50 O2 Flow Rate 3 10/15/22 19:41 BMI result Body Mass Index 41.3 On exam he is anicteric He is in no acute respiratory distress Abdomen is obese and soft with expected incisional tenderness GABY is putting out non bilious serosanguineous irrigation fluid Objective Data Active Medications Docusate Sodium (Docusate Sodium 100 Mg Capsule) 200 mg PO BID [facility] Last Admin: 10/16/22 07:34 Dose: 200 mg Documented By: SOLANGE Fentanyl (Fentanyl Citrate/Pf 100 Mcg/2 Ml Vial) 25 mcg IVPUSH Q5M PRN; Protocol PRN Reason: Pain, Moderate (Pain Scale 4-6 Hydromorphone HCl (Hydromorphone Hcl 0.5 Mg/0.5 Ml Syringe) 0.25 mg IVPUSH Q5M PRN; Protocol PRN Reason: Pain, Severe (Pain Scale 7-10) Hydromorphone HCl (Hydromorphone Hcl 0.5 Mg/0.5 Ml Syringe) 0.25 mg IVPUSH Q2H PRN; Protocol PRN Reason: Pain, Moderate (Pain Scale 4-6 Last Admin: 10/15/22 23:08 Dose: 0.25 mg Documented By: CARLI Lactated Ringer's (Lr) 1,000 mls @ 125 mls/hr IVCONT .Q8H [facility] Last Admin: 10/16/22 03:46 Dose: 125 mls/hr Documented By: CARLI Promethazine HCl 12.5 mg/ (Sodium Chloride) 50.5 mls @ 202 mls/hr IV ONCE PRN PRN Reason: Nausea and Vomiting Piperacillin Sod/Tazobactam (Sod 3.375 gm/ Sodium Chloride) 50 mls @ 100 mls/hr IV Q6H [facility] Last Infusion: 10/16/22 07:04 Dose: 0 mls/hr Documented By: CARLI Ondansetron HCl (Ondansetron Hcl 4 Mg/2 Ml Vial) 4 mg IVPUSH ONCE PRN PRN Reason: Nausea and Vomiting Ondansetron HCl (Ondansetron Hcl 4 Mg/2 Ml Vial) 4 mg IVPUSH Q8H PRN PRN Reason: Nausea and Vomiting Pantoprazole Sodium (Pantoprazole Sodium 40 Mg/10 Ml Vial) 40 mg IVPUSH DAILY@0630 [facility] Last Admin: 10/16/22 06:15 Dose: 40 mg Documented By: CARLI Pharmacy Consult (Consult Rx Perform Med Rec) 1 each MISCELLANE ONCE PRN PRN Reason: Consult order Labs 10/15/22 11:01 10/16/22 05:50 Labs: Laboratory Results - last 24 hr 10/15/22 10/15/22 10/15/22 11:01 11:01 12:32 MCV 92.0 MCH 31.1 MCHC 33.8 RDW 12.3 Plt Count 347 MPV 9.4 Immature Gran % (Auto) 0.4 Neut % (Auto) 83.8 H Lymph % (Auto) 6.5 L [place] % (Auto) 8.2 Eos % (Auto) 0.6 Baso % (Auto) 0.5 Lymph # (Auto) 0.9 L [place] # (Auto) 1.2 Eos # (Auto) 0.1 Baso # (Auto) 0.1 Abs Immat Gran (auto) 0.06 H Absolute Neuts (auto) 12.1 H Absolute Nucleated RBC 0.000 Nucleated RBC % (auto) 0.0 Anion Gap 14 Estim Creat Clear Calc 118.0 Estimated GFR > 60 Random Glucose 101 Calcium 9.2 D Total Bilirubin 2.0 H AST 26 ALT 28 Alkaline Phosphatase 75 Total Protein 7.7 Albumin 4.3 Urine Color Urine Appearance Urine pH Ur Specific [place] Urine Protein Urine Glucose (UA) Urine Ketones Urine Blood Urine Nitrite Ur Leukocyte Esterase Urine RBC Urine WBC Ur Squamous Epith Cells Urine Bacteria Hyaline Casts COVID-19 (ERIC) Negative COVID-19 Clin Com See Note 10/15/22 10/16/22 12:53 05:50 MCV MCH MCHC RDW Plt Count MPV Immature Gran % (Auto) Neut % (Auto) Lymph % (Auto) [place] % (Auto) Eos % (Auto) Baso % (Auto) Lymph # (Auto) [place] # (Auto) Eos # (Auto) Baso # (Auto) Abs Immat Gran (auto) Absolute Neuts (auto) Absolute Nucleated RBC Nucleated RBC % (auto) Anion Gap 14 Estim Creat Clear Calc 133.3 Estimated GFR > 60 Random Glucose 124 H Calcium 8.7 Total Bilirubin 1.5 H AST 79 H ALT 70 H Alkaline Phosphatase 62 Total Protein 6.1 L Albumin 3.5 Urine Color Dark Yellow Urine Appearance Clear Urine pH 6.5 Ur Specific [place] 1.020 Urine Protein 30 (1+) H Urine Glucose (UA) Negative Urine Ketones Trace Urine Blood Negative Urine Nitrite Negative Ur Leukocyte Esterase Negative Urine RBC 0-2 Urine WBC 0-5 Ur Squamous Epith Cells 0-2 Urine Bacteria None Seen Hyaline Casts 0-2 COVID-19 ([facility]IC) COVID-19 Clin Com CBC for today, 10/16/2022 is pending Microbiology Microbiology Results: Microbiology 10/15/22 15:14 Gram Stain - Final Gallbladder No organism seen on Gram stain; culture pending Procedures Date of Service Date of Service: 10/16/22 Progress Note: A&P Assessment and plan (1) Acute gangrenous cholecystitis: Status: Acute (2) RENETTA (obstructive sleep apnea): Status: Acute (3) Acute calculous cholecystitis: Status: Acute (4) Essential hypertension: Status: Acute Plan Advanced to low-fat diet Check CBCD today and tomorrow; trend LFTs Await gallbladder cultures given increased risk for bactibilia and drain. Resume home BP meds, CPAP as needed. Patient's Nighat called and updated. Time Spent With Patient Time: Total time managing care of this patient today ____ minutes. Quality Stroke Does the patient have a stroke diagnosis?: No VTE Prior VTE?: No VTE Risk Level:: Surgical - moderate VTE Device Contraindication: N/A - Device Ordered VTE Drug Contraindication: Treatment Not Tolerated
[2022-10-16 09:37] LABS: MANUAL DIFF FLAG NO
[2022-10-16] MEDS: oxyCODONE HCl Immed Release 5 MG TABLET PO ×2 (09:37→20:10)
[2022-10-16 10:10] LABS: Basophils Absolute Auto 0.1 X10*3/uL (0.0-0.2); Basophils Percent Auto 0.3 % (0-2); Hemoglobin 12.3 g/dl (14.0-18.0); Imm Gran Abs Auto 0.06 X10*3/uL (0.00-0.03); Imm Gran Pct Auto 0.4 % (0.0-0.4); Lymphocytes Absolute Auto 0.9 X10*3/uL (1.2-4.9); Mean Corpuscular HGB Conc 33.2 g/dl (31.0-36.0); Mean Corpuscular Hemoglobin 31.9 pg (27.0-33.0); Mean Corpuscular Volume 96.1 fL (80.0-98.0); Mean Platelet Volume 10.2 fL (9.4-12.4); Monocytes Absolute Auto 1.2 X10*3/uL (0.1-1.2); Monocytes Percent Auto 7.6 % (2-11); Neutrophils Percent Auto 85.7 % (45-73); Platelet Count 287 X10*3/uL (160-400); Red Blood Count 3.85 X10*6/uL (4.60-5.80); Red Cell Distribution Width 12.7 % (11.0-16.0); White Blood Count 15.1 X10*3/uL (4.8-10.8)
[2022-10-16] MEDS: HYDROmorphone HCl 0.5 MG/0.5 ML SYRINGE 0.25 MG IVPUSH (14:38)
[2022-10-16 14:53] VITALS: BP 134/70; PULSE 85; RESP 18; TEMP 36.6; O2SAT 95
--- NOTE | 2022-10-16 15:26 | MHC.CM.PN ---
PATIENT IS INDEPENDENT WITH ALL ADLS NO DME OR [facility] SERVICES LIVES WITH AND CHILDREN COVID VACCINATED HE IS HOPING TO RETURN HOME TOMORROW - NO SERVICES AND WILL TRANSPORT. COPY OF HCP WITH PCP.
--- NOTE | 2022-10-16 19:26 | HO.POSTANES ---
Post Anesthesia Evaluation Post Anesthesia Evaluation Vital Signs: Vital Signs Temp Pulse Resp BP Pulse Ox O2 Del Method 10/16/22 14:53 98 F 85 18 134/70 95 Room Air Anesthesia: General Endotracheal-GETA Mental Status: Awake Pain Control: Satisfactory Nausea/Vomiting: None Hydration: Adequate Anesthesia-Related Issues: No Anes. Related Issues
[2022-10-16 20:00] VITALS: BP 139/79; PULSE 84; RESP 16; TEMP 36.6; O2SAT 95
[2022-10-16] MEDS: Lactated Ringers 1,000 ML 80 ML IVCONT (20:07)
[2022-10-16] MEDS: Acetaminophen 325 MG TABLET 975 MG PO (20:10)
[2022-10-17 03:11] VITALS: BP 114/65; PULSE 62; RESP 16; TEMP 35.7; O2SAT 99
[2022-10-17] MEDS: Pantoprazole Sodium 40 MG/10 ML VIAL IVPUSH (05:40)
[2022-10-17] MEDS: Piperacillin Sodium/Tazobactam 3.375 GM in 0.9 % Sodium Chloride 50 ML IV (05:40)
[2022-10-17 06:23] LABS: MANUAL DIFF FLAG NO
[2022-10-17 06:26] LABS: Basophils Absolute Auto 0.1 X10*3/uL (0.0-0.2); Basophils Percent Auto 0.9 % (0-2); Eosinophils Absolute Auto 0.2 X10*3/uL (0.0-0.4); Eosinophils Percent Auto 2.3 % (0-4); Hematocrit 33.5 % (42.0-52.0); Hemoglobin 11.1 g/dl (14.0-18.0); Imm Gran Abs Auto 0.04 X10*3/uL (0.00-0.03); Imm Gran Pct Auto 0.4 % (0.0-0.4); Lymphocytes Absolute Auto 1.6 X10*3/uL (1.2-4.9); Lymphocytes Percent Auto 17.6 % (20-40); Mean Corpuscular HGB Conc 33.1 g/dl (31.0-36.0); Mean Corpuscular Hemoglobin 31.7 pg (27.0-33.0); Mean Corpuscular Volume 95.7 fL (80.0-98.0); Monocytes Absolute Auto 0.9 X10*3/uL (0.1-1.2); Monocytes Percent Auto 10.1 % (2-11); Neutrophils Absolute Auto 6.4 x10*3/uL (2.0-8.3); Neutrophils Percent Auto 68.7 % (45-73); Platelet Count 279 X10*3/uL (160-400); Red Cell Distribution Width 12.5 % (11.0-16.0); White Blood Count 9.3 X10*3/uL (4.8-10.8)
[2022-10-17 06:50] LABS: Alanine Aminotransferase 71 U/L (0-40); Albumin Level 3.2 g/dL (3.5-5.0); Alkaline Phosphatase 58 U/L (39-117); Anion Gap 14 (12-20); Aspartate Amino Transferase 57 U/L (5-37); Bilirubin Total 1.3 mg/dL (0.0-1.0); Blood Urea Nitrogen 10 mg/dL (9-16); Calcium 8.5 mg/dL (8.4-10.2); Carbon Dioxide 26 mmol/L (22-29); Chloride 102 mmol/L (96-108); Creatinine Clr Calc Pharmacy 122.1; Estimated Glomerular Filt Rate > 60; Glucose Random 93 mg/dL (60-115); Potassium 4.3 mmol/L (3.3-5.1); Sodium 138 mmol/L (135-145); Total Protein 5.8 g/dL (6.5-8.0)
[2022-10-17 06:52] VITALS: BP 118/59; PULSE 67; RESP 20; TEMP 36.6; O2SAT 95
[2022-10-17] MEDS: Famotidine 20 MG TABLET PO (09:05)
[2022-10-17] MEDS: lisinopriL 20 MG, hydroCHLOROthiazide 25 MG PO (09:05)
[2022-10-17] MEDS: Docusate Sodium 100 MG CAPSULE 200 MG PO (09:05)
--- NOTE | 2022-10-17 09:09 | P.PNGS_ITS ---
Subjective Subjective Date of Service: 10/17/22 Patient reports: no new complaints and feels better Interval history: The patient is tolerating his regular diet and denies any pain, nausea or vomiting. He reports good analgesia from the current regime of oxycodone, Tylenol and ibuprofen. He otherwise denies chest pain, difficulty breathing, shortness of breath. He is passing gas and had a bowel movement Physical Exam Vital Signs: Vital Signs: Last Vital Signs Temp 98 F 10/17/22 06:52 Pulse 67 10/17/22 06:52 Resp 20 10/17/22 06:52 BP 118/59 L 10/17/22 06:52 Pulse Ox 95 10/17/22 06:52 O2 Del Method 10/17/22 06:52 O2 Flow Rate 3 10/15/22 19:41 BMI result Body Mass Index 41.3 He is anicteric and nontoxic He is in no respiratory distress He is sitting out of bed comfortably and just finished breakfast Abdomen is obese and soft. Dressings clean and intact GABY is putting out non bilious serosanguineous material GABY drain is removed by cutting the suture in taking it off vacuum. a dry sterile dressing was placed Objective Data Active Medications Acetaminophen (Acetaminophen 325 Mg Tablet) 975 mg PO Q6H PRN PRN Reason: Pain, Mild (Pain Scale 1-3) Last Admin: 10/16/22 20:10 Dose: 975 mg Documented By: DAMARIS Lisinopril 20 mg/ (Hydrochlorothiazide 25 mg) 0 mg PO DAILY [facility] Last Admin: 10/17/22 09:05 Dose: 25 tablet Documented By: KARLA Docusate Sodium (Docusate Sodium 100 Mg Capsule) 200 mg PO BID [facility] Last Admin: 10/17/22 09:05 Dose: 200 mg Documented By: KARLA Docusate Sodium (Docusate Sodium 100 Mg Capsule) 200 mg PO BID [facility] Last Admin: 10/17/22 09:07 Dose: Not Given Documented By: KARLA Non-Admin Reason: order duplicated Famotidine (Famotidine 20 Mg Tablet) 20 mg PO DAILY [facility] Last Admin: 10/17/22 09:05 Dose: 20 mg Documented By: KARLA Fentanyl (Fentanyl Citrate/Pf 100 Mcg/2 Ml Vial) 25 mcg IVPUSH Q5M PRN; Protocol PRN Reason: Pain, Moderate (Pain Scale 4-6 Hydromorphone HCl (Hydromorphone Hcl 0.5 Mg/0.5 Ml Syringe) 0.25 mg IVPUSH Q5M PRN; Protocol PRN Reason: Pain, Severe (Pain Scale 7-10) Hydromorphone HCl (Hydromorphone Hcl 0.5 Mg/0.5 Ml Syringe) 0.25 mg IVPUSH Q2H PRN; Protocol PRN Reason: Pain, Moderate (Pain Scale 4-6 Last Admin: 10/16/22 14:38 Dose: 0.25 mg Documented By: SOLANGE Lactated Ringer's (Lr) 1,000 mls @ 80 mls/hr IVCONT .[id number] [facility] Last Infusion: 10/16/22 23:38 Dose: 80 mls/hr Documented By: DAMARIS Promethazine HCl 12.5 mg/ (Sodium Chloride) 50.5 mls @ 202 mls/hr IV ONCE PRN PRN Reason: Nausea and Vomiting Piperacillin Sod/Tazobactam (Sod 3.375 gm/ Sodium Chloride) 50 mls @ 100 mls/hr IV Q6H [facility] Last Infusion: 10/17/22 06:16 Dose: 0 mls/hr Documented By: DAMARIS Ibuprofen (Ibuprofen 400 Mg Tablet) 400 mg PO Q6H PRN PRN Reason: Pain, Mild (Pain Scale 1-3) Ondansetron HCl (Ondansetron Hcl 4 Mg/2 Ml Vial) 4 mg IVPUSH ONCE PRN PRN Reason: Nausea and Vomiting Ondansetron HCl (Ondansetron Hcl 4 Mg/2 Ml Vial) 4 mg IVPUSH Q8H PRN PRN Reason: Nausea and Vomiting Oxycodone HCl (Oxycodone Hcl Immed Release 5 Mg Tablet) 5 mg PO Q4H PRN PRN Reason: Pain, Moderate (Pain Scale 4-6 Last Admin: 10/16/22 20:10 Dose: 5 mg Documented By: DAMARIS Pantoprazole Sodium (Pantoprazole Sodium 40 Mg/10 Ml Vial) 40 mg IVPUSH DAILY@ 0630 [facility] Last Admin: 10/17/22 05:40 Dose: 40 mg Documented By: DAMARIS Pharmacy Consult (Consult Rx Perform Med Rec) 1 each MISCELLANE ONCE PRN PRN Reason: Consult order Labs 10/17/22 05:40 10/17/22 05:40 Labs: Laboratory Results - last 24 hr 10/16/22 10/17/22 10/17/22 05:50 05:40 05:40 MCV 96.1 95.7 MCH 31.9 31.7 MCHC 33.2 33.1 RDW 12.7 12.5 Plt Count 287 279 MPV 10.2 10.0 Immature Gran % (Auto) 0.4 0.4 Neut % (Auto) 85.7 H 68.7 Lymph % (Auto) 6.0 L 17.6 L [place] % (Auto) 7.6 10.1 Eos % (Auto) 0.0 2.3 Baso % (Auto) 0.3 0.9 Lymph # (Auto) 0.9 L 1.6 [place] # (Auto) 1.2 0.9 Eos # (Auto) 0.0 0.2 Baso # (Auto) 0.1 0.1 Abs Immat Gran (auto) 0.06 H 0.04 H Absolute Neuts (auto) 13.0 H 6.4 Absolute Nucleated RBC 0.000 0.000 Nucleated RBC % (auto) 0.0 0.0 Anion Gap 14 Estim Creat Clear Calc 122.1 Estimated GFR > 60 Random Glucose 93 Calcium 8.5 Total Bilirubin 1.3 H AST 57 H ALT 71 H Alkaline Phosphatase 58 Total Protein 5.8 L Albumin 3.2 L Microbiology Microbiology Results: Microbiology 10/15/22 15:14 Gram Stain - Final Gallbladder Routine Culture - Preliminary No growth to date. Procedures Date of Service Date of Service: 10/17/22 Progress Note: A&P Assessment and plan (1) Acute gangrenous cholecystitis: Status: Acute (2) High cholesterol: Status: Acute (3) HTN (hypertension): Status: Acute (4) RENETTA (obstructive sleep apnea): Status: Acute (5) Elevated fasting blood sugar: Status: Acute (6) Mixed hyperlipidemia: Status: Acute Plan Drain removed. Patient stable for discharge. No growth in cultures and no organisms, so antibiotics are not seen See discharge instructions. Patient's activity restrictions and dietary recommendations were reviewed. Follow-up in 1 week. Okay to shower tomorrow Time Spent With Patient Time: Total time managing care of this patient today ____ minutes. Quality Stroke Does the patient have a stroke diagnosis?: No VTE Prior VTE?: No VTE Risk Level:: Surgical - moderate VTE Device Contraindication: N/A - Device Ordered VTE Drug Contraindication: Treatment Not Tolerated
--- NOTE | 2022-10-17 09:12 | P.DS_ITS ---
DS: Providers Provider Date of Service: 10/17/22 Date of admission: 10/15/22 17:36 Primary care physician: Jerrod Lizama MD Consults: 10/15/22 12:32 Consult to General Surgery Stat Consulting Provider: Ti Villaseñor Reason for consultation: acute ofelia DS: Diagnosis Discharge Diagnosis (1) Acute gangrenous cholecystitis: Status: Acute (2) High cholesterol: Status: Acute (3) HTN (hypertension): Status: Acute (4) RENETTA (obstructive sleep apnea): Status: Acute (5) Elevated fasting blood sugar: Status: Acute (6) Mixed hyperlipidemia: Status: Acute DS: Summary Hospital Course Hospital Course: See admitting H and P for full details. Briefly, this 41-year-old gentleman with obesity, obstructive sleep apnea, hypertension, mixed lipid disorder presented with right upper quadrant pain and was noted to have findings consistent with acute calculous cholecystitis. Intraoperatively, he had extensive adhesiolysis performed in order to remove a gangrenous gallbladder. The patient and his were advised that due to the gangrenous nature, some stones were spilled. While all visible stones were retrieved, the patient is advised to monitor for abdominal pain or fevers. The patient declined dietary counseling regarding a low-fat diet. Activity restrictions were reviewed and questions answered. At the day of discharge was tolerating a low-fat diet. Overall condition at time of discharge is improved Time Spent with Patient Time attestation: Total time managing care of this patient today ____ minutes. Discharge coordination time: Less than 30 minutes Quality: Safe Use of Opioids Does Pt have an Active Cancer Diagnosis on the Problem List?: No Quality: Stroke Does the patient have a stroke diagnosis?: No Physical Exam Vital Signs: Vital Signs: Last Vital Signs Temp 98 F 10/17/22 06:52 Pulse 67 10/17/22 06:52 Resp 20 10/17/22 06:52 BP 118/59 L 10/17/22 06:52 Pulse Ox 95 10/17/22 06:52 O2 Del Method 10/17/22 06:52 O2 Flow Rate 3 10/15/22 19:41 BMI result Body Mass Index 41.3 DS: Data Data Completed and Pending Pending studies at discharge: Pending at discharge 10/15/22 16:48 Surgical [PTH] Routine Labs on day of discharge: Laboratory Results - last 24 hr 10/16/22 10/17/22 10/17/22 05:50 05:40 05:40 WBC 15.1 H 9.3 RBC 3.85 L 3.50 L Hgb 12.3 L 11.1 L Hct 37.0 L 33.5 L MCV 96.1 95.7 MCH 31.9 31.7 MCHC 33.2 33.1 RDW 12.7 12.5 Plt Count 287 279 MPV 10.2 10.0 Immature Gran % (Auto) 0.4 0.4 Neut % (Auto) 85.7 H 68.7 Lymph % (Auto) 6.0 L 17.6 L Christian % (Auto) 7.6 10.1 Eos % (Auto) 0.0 2.3 Baso % (Auto) 0.3 0.9 Lymph # (Auto) 0.9 L 1.6 Christian # (Auto) 1.2 0.9 Eos # (Auto) 0.0 0.2 Baso # (Auto) 0.1 0.1 Abs Immat Gran (auto) 0.06 H 0.04 H Absolute Neuts (auto) 13.0 H 6.4 Absolute Nucleated RBC 0.000 0.000 Nucleated RBC % (auto) 0.0 0.0 Sodium 138 Potassium 4.3 Chloride 102 Carbon Dioxide 26 Anion Gap 14 BUN 10 Creatinine 1.07 Estim Creat Clear Calc 122.1 Estimated GFR > 60 Random Glucose 93 Calcium 8.5 Total Bilirubin 1.3 H AST 57 H ALT 71 H Alkaline Phosphatase 58 Total Protein 5.8 L Albumin 3.2 L Preliminary micro results at discharge 10/15/22 15:14 Routine Culture - Preliminary Gallbladder No growth to date. Discharge Plan Discharge Anticipated Discharge Date/Time: 10/17/22 10:40 Patient Disposition: Home, Self-Care Discharge Diagnosis: gangrenous cholecystitis, s/p lap ofelia Referrals: Jerrod Lizama MD [Primary Care Provider] - 1 Week Ti Villaseñor MD [Physician] - 1 Week Discharge Medications: New oxycodone 5 mg tablet 5 mg PO Q4H PRN (Reason: pain) Qty: 20 0RF Rx Instructions: Partial Fill upon patient request. Continued lisinopril-hydrochlorothiazide 20-25 mg tablet 1 tab PO DAILY 30 Days Qty: 30 2RF atorvastatin 20 mg tablet 20 mg PO BEDTIME Qty: 30 2RF multivitamin Tablet 1 tab PO DAILY famotidine 20 mg Tablet 20 mg PO DAILY Discharge Orders: Discharge Order (Routine); Ordered 10/17/22 Ordered By: Ti Villaseñor Diet: low fat Activity on Discharge: No heavy lifting Stand Alone Forms: Patient Portal Discharge page Activity Restrictions/Additional Instructions: You had a laparoscopic cholecystectomy performed by Dr. Villaseñor. It is normal to experience some neck or shoulder pain from the gas used to inflate your abdomen. It is also normal to have pain or discomfort in your abdomen/belly as well as at the trocar sites (small incisions). This discomfort will resolve over the next 1-3 days, however, if it gets progressively worse, if you should develop worsening pain, nausea, vomiting and cannot keep liquids down, chest pain, difficulty breathing or shortness of breath, fevers over 100F please report to the nearest emergency department. Unless otherwise directed by Dr. Villaseñor, you should resume taking your regular medications. As Dr. Villaseñor reviewed in the office, you must not lift more than 20 lb for the next 4 weeks. Strenuous activities can tear out your sutures and cause an incisional hernia that would require another operation. Activities to be katina ided include: sports, running, bicycling, yoga, lifting more than 20 lb, digging, gardening, splitting/carrying wood, swimming, hiking uphill, and other activities. If you have questions regarding this specific activity, please check with Dr. Villaseñor. If your incisions become red, swollen, tender or draining pus, please contact Dr. Villaseñor or go to the nearest emergency department. Do not shower or bathe for 48 hours. If there are bandages on your incisions, remove them in 48 hours. Do not allow your bandages to become wet for 48 hours. Do not soak in a tub or swimming pool until your incisions have completely sealed, usually 2 or more weeks. After the dressings are removed in 48 hours, you will notice paper tapes called butterflies/Steri-Strips. These tapes will fall off on their own in 1-2 weeks. You do not need to apply another bandage unless your clothing irritates your incisions. If you need to place another Band-Aid on your incisions, be sure to wait until the Steri strip is dry. You have been prescribed narcotic pain medicine that will cause constipation. Please purchase ctmj-phn-zotszfk stool softener known as Colace/docusate, 100 mg. Take 2 tablets with breakfast and the morning and 2 tablets in the evening after dinner until your bowels are moving and urine or longer taking narcotics. Please note that if you are not taking narcotics, the general anesthesia for the procedure can still cause constipation. If you experience diarrhea, stop taking the stool softener medicine. You can take uiua-qig-ckejsio Tylenol/acetaminophen with tiio-pvj-ifdvutm ibuprofen or naproxen for pain unless you have an allergy or medical reason you are not not allowed to take these medications, such as peptic ulcers, taking blood thinners or kidney problems. You should also use ice packs to the operative site to help minimize pain and swelling for the first 3 days, or as needed afterwards. Unless there is a medical reason to avoid these medicines, you should take 2 tjno-jio-jlvkmab Tylenol with two (2) kxum-hsw-zeaoqdu ibuprofen together, every 6 hours for the first 3 days to help with pain. Remember that the gallbladder helps to to digest fatty foods. If you eat fried foods; rich, creamy sauces; cheese; gravies or other such heavy, greasy foods, you will likely develop gas and bloating and diarrhea. To minimize this risk, eat a high protein, high-fiber, low-fat diet for the next few weeks. Care Plan Goals: Address you chronic problems with your PCP; allow postoperative healing Health Concerns: Address you chronic problems with your PCP; allow postoperative healing Plan of Treatment: Address you chronic problems with your PCP; allow postoperative healing Assessment: s/p lap ofelia for gangrenous cholecystitis
--- NOTE | 2022-10-17 09:44 | MHC.CM.PN ---
Patient is discharged home self care. He has arranged for transportation home.
== END 2022-10-17 10:50 | disposition home or self-care (01) | DRG 418 ==
LOC: HO.ED 14:40 → HO.EDOVER 17:49 → HO.S3 18:05
PROVIDERS: Nurse Practitioner Family; Admitting Provider Surgery; Emergency Provider Emergency Medicine; PCP Family Medicine; Visit Provider Surgery
PROC: 0FT44ZZ Resection of Gallbladder, Percutaneous Endoscopic Approach (ICD-10-PCS; CPT 47562; principal; 2022-10-15 14:00)
DX: K80.00 Calculus of gallbladder with acute cholecystitis without obstruction (principal); Z68.41 Body mass index [BMI] 40.0-44.9, adult; G47.33 Obstructive sleep apnea (adult) (pediatric); K75.81 Nonalcoholic steatohepatitis (NASH); E78.2 Mixed hyperlipidemia; E66.9 Obesity, unspecified; K82.8 Other specified diseases of gallbladder; K82.A1 Gangrene of gallbladder in cholecystitis; Z20.822 Contact with and (suspected) exposure to COVID-19; Z79.899 Other long term (current) drug therapy
CPT/HCPCS: 36415; 80053; 81001; 85025; 87070; 87205; 87635; 88304; 96361; 96374; 96375; 99285; J0131; J0690; J1100; J1170; J1885; J2270; J2370; J2405; J2543; J3010

== ENCOUNTER → 2022-10-22 13:24 | Outpatient (BNVA) | payer OTHER, SELFPAY | PROVIDERS: PCP Family Medicine; Visit Provider Surgery | DX: Z13.89 Encounter for screening for other disorder (principal) ==

== ENCOUNTER → 2022-12-15 13:26 | Outpatient (BNVA) | payer OTHER, SELFPAY | PROVIDERS: PCP Family Medicine; Visit Provider Physician Assistant Surgical ==

== ENCOUNTER 2022-12-22 09:27 | Outpatient (REF) | payer OTHER, SELFPAY ==
[2022-12-22 12:43] LABS: Alanine Aminotransferase 33 U/L (0-40); Albumin Level 4.1 g/dL (3.5-5.0); Alkaline Phosphatase 69 U/L (39-117); Anion Gap 12 (12-20); Aspartate Amino Transferase 28 U/L (5-37); Bilirubin Total 1.1 mg/dL (0.0-1.0); Blood Urea Nitrogen 19 mg/dL (9-16); Calcium 9.7 mg/dL (8.4-10.2); Carbon Dioxide 28 mmol/L (22-29); Chloride 102 mmol/L (96-108); Cholesterol 146 mg/dL; Estimated Glomerular Filt Rate > 60; Glucose Fasting 86 mg/dL (60-99); HDL Cholesterol 35 mg/dL; LDL Cholesterol Calculated 68 mg/dl; Potassium 3.8 mmol/L (3.3-5.1); Sodium 138 mmol/L (135-145); Total Protein 7.1 g/dL (6.5-8.0); Triglycerides 218 mg/dL
== END 2022-12-22 09:28 | disposition home or self-care (01) ==
LOC: HO.WFDLDS 09:27
PROVIDERS: Visit Provider Family Medicine
DX: Z00.00 Encounter for general adult medical examination without abnormal findings (principal); E78.2 Mixed hyperlipidemia
CPT/HCPCS: 36415; 80053; 80061

== ENCOUNTER → 2023-01-10 12:56 | Outpatient (BNVA) | payer OTHER, SELFPAY | PROVIDERS: PCP Family Medicine; Visit Provider Physician Assistant Surgical ==

== ENCOUNTER 2023-01-12 08:53 | Outpatient (REF) | payer OTHER, SELFPAY ==
--- NOTE | ~2023-01-12 | XR_ITS ---
EXAMINATION: XR CHEST CLINICAL INFORMATION: Hypertension COMPARISON: None available. TECHNIQUE: 2 views of the chest were obtained. FINDINGS: No significant abnormality is noted involving the heart, lungs, mediastinum, bony thorax or soft tissues. XR/XR chest 2V IMPRESSION: Unremarkable examination.
--- NOTE | 2023-01-12 08:57 | ECG_ITS ---
Test Reason : htn Blood Pressure : / mmHG Vent. Rate : 055 BPM Atrial Rate : 055 BPM P-R Int : 150 ms QRS Dur : 094 ms QT Int : 414 ms P-R-T Axes : 027 041 003 degrees QTc Int : 396 ms Sinus bradycardia with sinus arrhythmia Otherwise normal ECG No previous ECGs available Referred By: Codey Patel Electronically Signed By:Chris Pagan
[2023-01-12 09:09] LABS: MANUAL DIFF FLAG NO
[2023-01-12 09:21] LABS: Basophils Absolute Auto 0.1 X10*3/uL (0.0-0.2); Eosinophils Absolute Auto 0.1 X10*3/uL (0.0-0.4); Eosinophils Percent Auto 1.9 % (0-4); Hemoglobin 14.4 g/dl (14.0-18.0); Imm Gran Abs Auto 0.02 X10*3/uL (0.00-0.03); Imm Gran Pct Auto 0.3 % (0.0-0.4); Lymphocytes Absolute Auto 1.5 X10*3/uL (1.2-4.9); Lymphocytes Percent Auto 22.6 % (20-40); Mean Corpuscular HGB Conc 34.3 g/dl (31.0-36.0); Mean Corpuscular Hemoglobin 30.9 pg (27.0-33.0); Mean Corpuscular Volume 90.1 fL (80.0-98.0); Mean Platelet Volume 9.7 fL (9.4-12.4); Monocytes Absolute Auto 0.5 X10*3/uL (0.1-1.2); Monocytes Percent Auto 7.3 % (2-11); Neutrophils Absolute Auto 4.6 x10*3/uL (2.0-8.3); Neutrophils Percent Auto 66.9 % (45-73); Platelet Count 299 X10*3/uL (160-400); Red Blood Count 4.66 X10*6/uL (4.60-5.80); Red Cell Distribution Width 12.4 % (11.0-16.0); White Blood Count 6.8 X10*3/uL (4.8-10.8)
[2023-01-12 09:55] LABS: C Reactive Protein 0.79 mg/dL (< or = 0.50); Iron 70 mcg/dL (45-160); Percent Iron Saturation 25 % (15-50); Total Iron Binding Capacity 285 mcg/dL (228-428); Unsaturated Iron Binding 215 ug/dL
[2023-01-12 10:38] LABS: Ferritin 224 ng/mL (20-250); Folate 17.7 ng/mL (> or = 4.0); TSH reflex Free T4 0.92 uIU/mL (0.32-4.0); Vitamin B12 325 pg/mL (200-900); Vitamin D 25-OH Total 44.5 ng/mL (>30)
[2023-01-12 11:46] LABS: Insulin 11 uU/mL (2-29)
[2023-01-13 22:24] LABS: Calcium (PTHI) 9.6 mg/dL (8.6-10.3); PTHI 42 pg/mL (16-77)
[2023-01-16 15:24] LABS: Zinc 94 mcg/dL (60-130)
[2023-01-17 08:44] LABS: Vitamin B1 27 nmol/L (8-30)
[2023-01-18 13:43] LABS: Vitamin A 60 mcg/dL (38-98)
== END 2023-01-12 08:54 | disposition home or self-care (01) ==
LOC: HO.LAB 08:53
PROVIDERS: Visit Provider Physician Assistant Surgical
DX: Z01.818 Encounter for other preprocedural examination (principal); E66.01 Morbid (severe) obesity due to excess calories; I10 Essential (primary) hypertension; E78.00 Pure hypercholesterolemia, unspecified
CPT/HCPCS: 36415; 71046; 82306; 82607; 82728; 82746; 83525; 83540; 83970; 84425; 84443; 84590; 84630; 85025; 86140; 93005

== ENCOUNTER → 2023-01-17 13:00 | Outpatient (BNVA) | payer OTHER, SELFPAY | PROVIDERS: PCP Family Medicine; Referring Provider Physician Assistant Surgical; Visit Provider Counselor Mental Health ==

== ENCOUNTER 2023-02-03 08:33 | Outpatient (REF) | payer OTHER, SELFPAY ==
--- NOTE | ~2023-02-03 | US_ITS ---
EXAMINATION: US COMPLETE ABDOMEN WITH LIVER ELASTOGRAPHY CLINICAL INFORMATION: Orbit obesity. COMPARISON: None available. TECHNIQUE: Real-time imaging of the abdominal viscera. Noninvasive ultrasound liver fibrosis assessment is performed using Vida ElastPQ point quantification shear wave elastography (2D-SWE) with a C5-2 MHz transducer. Multiple elastography samples are obtained. FINDINGS: PANCREAS: Normal. The visualized pancreatic head and body are normal in appearance. The remainder of the pancreas is obscured from visualization by the overlying bowel gas. ABDOMINAL AORTA: The proximal, middle, and distal aortic segments are normal in caliber. INFERIOR VENA CAVA: Visualized portions are normal. LIVER: The liver demonstrates normal size, contour and increased echogenicity. No focal lesion or intrahepatic biliary duct dilatation. The right lobe measures 16.6 cm in length. The left lobe measures 9.6 cm in length. Portal flow is towards the liver (hepatopetal). Shear wave liver elastography median stiffness is 2.01 m/s (reference: normal median stiffness is 1.3 m/s or less). IQR/median stiffness to assess sampling precision is 0.11 (reference: good quality data set is IQR/median stiffness of 0.15 or less). GALLBLADDER: Normal. The gallbladder is physiologically distended without evidence of stones, sludge, polyps, wall thickening or pericholecystic fluid. COMMON BILE DUCT: Normal in caliber measuring 0.3 cm in diameter. RIGHT KIDNEY: Normal. No hydronephrosis. No renal calculi or focal parenchymal lesions. The kidney measures 9.4 cm in maximum dimension. LEFT KIDNEY: Normal. No hydronephrosis. No renal calculi or focal parenchymal lesions. The kidney measures 10.5 cm in maximum dimension. SPLEEN: Normal. The spleen measures 13.3 cm in maximum dimension. FREE FLUID: None. US/US abdomen comp w elastography IMPRESSION: 1. There is generalized increase in hepatic echotexture, consistent with fatty infiltration or hepatocellular disease. Please correlate clinically. No focal hepatic mass or intrahepatic biliary dilatation is seen. 2. Liver elastography: Measurements are suggestive of compensated advanced chronic liver disease but need further test for confirmation. 3. The gallbladder is surgically absent. REFERENCE: Society of Radiologists in Ultrasound Liver Stiffness Thresholds (2020): LIVER STIFFNESS THRESHOLDS: *Liver Stiffness equal or less than 1.3 m/s: High probability of being normal. *Liver Stiffness less than 1.7 m/s: In the absence of other known clinical signs, rules out compensated advanced chronic liver disease. *Liver Stiffness 1.7-2.1 m/s: Suggestive of compensated advanced chronic liver disease but need further test for confirmation. *Liver Stiffness over 2.1 m/s: Rules in compensated advanced chronic liver disease. *Liver Stiffness over 2.4 m/s: Suggestive of clinically significant portal hypertension. QUALITY OF DATA SET: *IQR/Median value equal or less than 0.15 implies a quality data set. *IQR/Median value over 0.15 implies a poor quality data set. SIGNIFICANT CHANGE FROM PRIOR EXAM: Significant change if liver stiffness measurement is 10% or greater from prior exam. OTHER CONSIDERATIONS: The stage of liver fibrosis may be overestimated in the setting of acute hepatitis, liver inflammation, elevated liver function tests, hepatic vascular congestion, obstructive cholestasis, non-fasting state, and infiltrative diseases such as amyloidosis and lymphoma. In some patients with NAFLD, the liver stiffness thresholds for compensated advanced chronic liver disease may be lower. In causes other than viral hepatitis and NAFLD, liver stiffness thresholds are not well established.
[2023-02-05 10:50] LABS: H Pylori Breath Test Negative (Negative)
== END 2023-02-03 08:34 | disposition home or self-care (01) ==
LOC: HO.US 08:33
PROVIDERS: PCP Family Medicine; Visit Provider Physician Assistant Surgical
DX: E66.01 Morbid (severe) obesity due to excess calories (principal); E78.00 Pure hypercholesterolemia, unspecified; I10 Essential (primary) hypertension; Z71.3 Dietary counseling and surveillance; Z68.39 Body mass index [BMI] 39.0-39.9, adult
CPT/HCPCS: 36415; 76705; 76981; 83013; 97802

== ENCOUNTER → 2023-02-07 11:15 | Outpatient (BNVA) | payer OTHER, SELFPAY | PROVIDERS: PCP Family Medicine; Visit Provider Physician Assistant Surgical ==

== ENCOUNTER 2023-02-17 15:25 | Outpatient (AMB) | payer OTHER, SELFPAY ==
--- NOTE | 2023-02-17 15:35 | MHC.PC.OV ---
Vital Signs 02/17/23 15:36 02/17/23 16:25 02/17/23 16:25 02/17/23 16:26 Height 5 ft 10 in Weight 270 lb 6 oz BMI 38.8 BP 126/70 126/62 116/60 102/60 Blood Pressure Location Lt brachial Rt brachial Rt brachial Rt brachial Position Sitting Supine Sitting Standing Respiration 12 Pulse 71 Pulse Source Pulse Oximeter Temp 97.2 F Temp Source Temporal Artery Scan Pulse Oximetry (%) 99 Oxygen Delivery Method Room Air Intake Visit Reasons: dizziness Intake Note: Patient states that this past Tuesday he was getting up off the couch when he passed out and was out for about 8 min according to his . Patients told him that he was slurring while trying to have a conversation when he woke up. Patient states that he still feels a little dizzy when getting up or bending down to get something. Patient states he started the weightloss program in early januaryand is wondering if that could be the cause. Validation Specialist Required: No Accompanied by: Self / Same As Patient Allergies No Known Allergies Allergy (Verified 02/17/23 16:03) Medication List - Last Reconciled 02/17/23 by Yarely Hernandez CNP atorvastatin 20 mg PO BEDTIME 90 days cyanocobalamin (vitamin B-12) 500 mcg PO DAILY famotidine 20 mg PO DAILY lisinopril-hydrochlorothiazide 20-25 mg 1 tab PO DAILY 90 days loratadine (Claritin) 10 mg PO DAILY multivitamin 1 tab PO DAILY Tobacco use date assessed: 09/24/22 Dental Screening Dental Screen Date: 02/17/23 Did you have a dental visit in the last 12 months?: Yes Did you have a dental problem in the last 6 months where you did not have access to dental care?: No Was dental information given to patient?: Patient has dentist HPI HPI Comments History of Present Illness Details 42-year-old male presents with complaints of dizziness. He states that 6 days ago, he passed out for approximately 8 minutes according to his . He reports that his also informed them that his speech was slurred upon waking up that morning. He notes that his symptoms occurred while getting getting up from his couch. No fall, injury, or trauma. He reports continued, mild dizziness with bending and standing up quickly. He reports poor hydration when he is at home. He drinks more fluids when he is at work. He notes he started a weight loss program with a dietitian in the beginning of January and wonders if there is a correlation with his symptoms. He notes that he takes all of his medications, including antihypertensive as prescribed. [facility] Medical History No pertinent past medical history Surgical History History of hernia repair Hx laparoscopic cholecystectomy Family History Mother Diabetes Hypertension Heart disease Father High cholesterol Arthritis Son ADHD Son No problems noted. Daughter No problems noted. 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 Tucker Grady, Claire Mario, Reymundo Adam and colleagues, with an educational reese from [employer]. Review of Systems Const Details: Const Denies chills, Denies fatigue, Denies fever(s), Denies headache(s) and Denies weakness ENT Denies change in vision, Reports dizziness, Denies headache(s), Denies hearing loss, Denies nasal congestion, Denies sinus pain, Denies sinus pressure and Denies sore throat Resp Denies cough, Denies dyspnea, Denies wheezing and Denies other (shortness of breath) Cardio Denies chest pain, Denies lightheadedness, Denies dyspnea and Denies other (palpitations) Neuro Reports dizziness, Denies headache(s), Denies numbness, Denies tingling and Denies weakness Psych Denies anxiety, Denies depression, Denies memory?loss Endo Denies fatigue Aller/Immun Denies wheezing Physical exam (Primary Care) Vital Signs: Last Vital Signs Temp 97.2 F 02/17/23 15:36 Pulse 71 02/17/23 15:36 Resp 12 02/17/23 15:36 BP 126/70 02/17/23 15:36 Pulse Ox 99 02/17/23 15:36 Oxygen Delivery Method Room Air 02/17/23 15:36 BMI result Body Mass Index 38.8 Tobacco/Smoking Status: Tobacco use Status Tobacco use date assessed 09/24/22 02/17/23 15:44 Patient Tobacco Use Status Never used Tobacco 02/17/23 15:44 e-Cigarette/Vaping Use Never Used 02/17/23 15:44 Thrive Assessment: Date of Thrive Assessment Date Thrive assessed 09/24/22 02/17/23 15:44 Const Other: Const General: well developed; No acute distress Nutritional Appearance: well nourished Orientation/consciousness: patient oriented x3 HEENT Head: Yes normocephalic and Yes atraumatic Eyes General: appearance normal, both eyes and all related structures Pupils: Equal, round and reactive pupils present EOM: EOMs intact bilaterally Resp Effort & Inspection: normal respiratory effort Auscultation: clear to auscultation bilaterally Cardio Rate: regular rate Rhythm: regular rhythm Heart sounds: S1 normal heart sound present, S2 normal heart sound present, no gallops, no murmurs and no rubs Bruits: no abdominal aortic bruits and no carotid bruits Neuro General: patient oriented x3 and gait normal, no focal neuro deficit Cranial nerves: Yes Equal, round and reactive pupils present Psych Affect: normal affect Assessment and Plan Assessment & Plan (1) Dizziness: Code(s): R42 - Dizziness and giddiness Plan: He states that 6 days ago, he passed out for approximately 8 minutes according to his . He reports that his also informed them that his speech was slurred upon waking up that morning. He notes that his symptoms occurred while getting getting up from his couch. No fall, injury, or trauma. He reports continued, mild dizziness with bending and standing up quickly. He reports poor hydration when he is at home. He drinks more fluids when he is at work. Blood pressure readings is not consistent with orthostatic hypotension. However, he symptoms may be related to orthostatic hypertension or dehydration. CBC and CMP ordered Encouraged to change positions slowly to prevent dizziness and fall Return with worsening or new symptoms Verbalized understanding and agreed with treatment plan. Orders: Orders Comprehensive Met. Panel Today R42 - Dizziness and giddiness Complete Blood Count no Diff Today R42 - Dizziness and giddiness Coding Level of Care Code Est Pt Level 3 (20031) Diagnoses Dizziness R42 Time Spent (min) 25
[2023-02-17 15:36] VITALS: BP 126/70; PULSE 71; RESP 12; TEMP 36.2; O2SAT 99; BMI 38.8
[2023-02-17 16:25] VITALS: BP 116/60; BP 126/62
[2023-02-17 16:26] VITALS: BP 102/60
== END 2023-02-17 16:44 | disposition home or self-care (01) ==
PROVIDERS: PCP Family Medicine; Visit Provider Nurse Practitioner Family
DX: R42 Dizziness and giddiness (principal)
CPT/HCPCS: 99213

== ENCOUNTER 2023-03-07 10:17 | Outpatient (AMB) | payer OTHER, SELFPAY ==
--- NOTE | 2023-03-07 10:00 | A.OFFVIS_ITS ---
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 They were last seen in the office on 02/07/23, recorded weight at that time was 269.8 pounds, with a BMI of 38.7.? Today's weight is 258.1 pounds and BMI is 37.? There has been a weight loss of 22.5 pounds since initiating the surgical weight loss program on 12/15/22 with a total body weight loss of 8 %. Pre op work up completed as follows: SWL classes:? 03/15 BH appts: cleared-01/17/23 ? ? RD appts: cleared-02/03/23 Labs: 01/12/23-B12:325 H. pylori: 02/03/23-neg CXR: 01/12/23-nad EK01/13/23-sinus blane ABD U/S: 02/03/23-fatty liver UGI: not yet done, scheduled 04/08/23 at 10 am The patient reports he has increased his shakes scoops to 2 scoops each. Having more forks at night, more like 12-15 forks protein and same w veg. Current meal plan includes: 3 Premier Protein shakes ([employer], [employer], [employer]) First shake, (1 scoop in 8 oz low fat unsweetened almond milk) at 6am-8am Second shake, (1 scoops in 8 oz low fat unsweetened almond milk) at 10am-12pm 1 protein bar (Quest bars at [employer], [facility], [employer] or [employer]) at 2pm-4pm. Dinner at 6pm (9 forks of protein and 9 forks of salad/vegetables). Another shake with 1 scoop in 8 oz unsweetened almond milk at 7pm-9pm. Drinking 60-80 oz of water Current exercise plan includes: weights 3 x per week walking 2 x per week not using treadmill PFSH Medical History No pertinent past medical history Surgical History History of hernia repair Hx laparoscopic cholecystectomy Family History Mother Diabetes Hypertension Heart disease Father High cholesterol Arthritis Son ADHD Son No problems noted. Daughter No problems noted. 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 Encouraged to increase cardio and ttrack calories and follow meal plan. Will arrange a f/u w Dr Villaseñor and then back to me for continued pre-op planning. UGI scheduled for 04/08/23 and then likely surgery shortly thereafter. (2) Dizziness: Code(s): R42 - Dizziness and giddiness Plan: home bp 1teens-120/70s told to cut zesteretic in half and follwo home bp Telehealth Telehealth Location of provider rendering services: practice address Location of patient: address on file Patient Identification confirmed using: Name, : Yes Telehealth method: video Patient verbally consented to treatment: Yes Patient verbally consented to billing insurance company: Yes Patient informed of any privacy concerns related to visit: Yes Minutes spent on Phone/Video with Pt.: 12 Coding Level of Care Code Tele Est Pt Level 3 (89361) Diagnoses Morbid obesity E66.01 Dizziness R42 Time Spent (min) 20
[2023-03-07 10:01] VITALS: BMI 37.0
== END 2023-03-07 10:21 | disposition home or self-care (01) ==
LOC: HO.HBS 10:17
PROVIDERS: PCP Family Medicine; Visit Provider Physician Assistant Surgical
DX: E66.01 Morbid (severe) obesity due to excess calories (principal); R42 Dizziness and giddiness
CPT/HCPCS: 99213

== ENCOUNTER → 2023-03-07 10:17 | Outpatient (BNVA) | payer OTHER, SELFPAY | PROVIDERS: PCP Family Medicine; Visit Provider Physician Assistant Surgical ==

== ENCOUNTER 2023-03-14 08:42 | Outpatient (AMB) | payer OTHER, SELFPAY ==
--- NOTE | 2023-03-14 08:45 | MHC.OFFVISWM ---
Intake VS Expanded 03/14/23 08:54 Height 5 ft 10 in Weight 254 lb 3.2 oz BMI 36.5 BP 123/59 L Blood Pressure Location Rt brachial Blood Pressure Position Sitting Pulse 58 Pulse Source Pulse Oximeter Temp 96.1 F L Temperature Source Tympanic Pulse Oximetry 98 Oxygen Delivery Method Room Air Body Fat 89.6 Body Fat Percentage 35.2 Free Fat Mass 164.6 Muscle Mass 156.6 Visceral Mass 18.0 Water Mass 114.6 BMR 2,264 Intake Visit Reasons: (ov) F/U SWL tranfer from [facility] Required: No Supervisor [employer]: Supervisor [employer] offered & declined Allergies No Known Allergies Allergy (Verified 03/14/23 08:50) Medication List - Last Reconciled 03/14/23 by Ti Villaseñor MD atorvastatin 20 mg PO BEDTIME 90 days cyanocobalamin (vitamin B-12) 500 mcg PO DAILY lisinopril-hydrochlorothiazide 20-25 mg 0.5 tabs PO DAILY loratadine (Claritin) 10 mg PO DAILY multivitamin 1 tab PO DAILY omeprazole 20 mg PO DAILY HPI HPI Comments History of Present Illness Details The patient is a 42-year-old gentleman with a lifelong struggle with obesity who entered the surgical weight loss program at a weight of 279.6 lb/BMI of 40.1 with the comorbidities of obstructive sleep apnea requiring CPAP, hypertension and hyper lipid disease. In October of this year, he presented with gangrenous cholecystitis and, following successful surgery, he wanted to enter the surgical weight loss program. He is very excited by his progress and notes that he has much more energy since entering the program in losing weight. He is tolerating his protein shakes well in his both walking and lifting weights for exercise. He is congratulated on his interval weight loss down to BMI of 36.5/weight of 254.2 lb today. This represents a 21.6 lb weight loss. Patient is accompanied by his today and notes that after discussion, they both prefer to continued medical weight loss and he would like to reconsider bariatric surgery since he is making such progress. He otherwise denies any interval change to his health history. He notes that his upper GI is scheduled for 04/08/2023 and he is not sure whether not he wishes to proceed. GERD 10 AMOR 0 ESS 3 QOL 63 Pre op work up completed as follows: SWL classes:? 03/15 appts: cleared-01/17/23 ? ? RD appts: cleared-02/03/23 Labs: 01/12/23-B12:325 H. pylori: 02/03/23-neg CXR: 01/12/23-nad EK01/13/23-sinus blane ABD U/S: 02/03/23-fatty liver UGI: not yet done, scheduled 04/08/23 at 10 am [facility] Medical History No pertinent past medical history Surgical History History of hernia repair Hx laparoscopic cholecystectomy Family History Mother Diabetes Hypertension Heart disease Father High cholesterol Arthritis Son ADHD Son No problems noted. Daughter No problems noted. 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/hazards: No Cognitive needs: No Hearing needs: No Vision needs: No Review of Systems Const All systems reviewed & are unremarkable except as noted in HPI and below Reports as per HPI Physical Exam Vital Signs: Last Vital Signs Temp 96.1 F L 03/14/23 08:54 Pulse 58 03/14/23 08:54 BP 123/59 L 03/14/23 08:54 Pulse Ox 98 03/14/23 08:54 Oxygen Delivery Method Room Air 03/14/23 08:54 BMI result Body Mass Index 36.5 On exam, he is anicteric and nontoxic Patient is in no acute respiratory distress His abdomen remains obese and soft with no tenderness, his lap choly incisions are well healed with no evidence of any hernia Results Reviewed Results Reviewed: Abdominal ultrasound dated 02/03/23 shows NAFLD CXRNAD UGI pending 03/08/23 Labs including hemoglobin of 14.4, normal indices and normal iron studies Multivitamins were within normal parameters Helicobacter pylori is negative CRP is elevated 0.79 Assessment & Plan Assessment & Plan (1) Obesity with body mass index (BMI) of 30.0 to 39.9: Code(s): E66.9 - Obesity, unspecified (2) RENETTA (obstructive sleep apnea): Code(s): G47.33 - Obstructive sleep apnea (adult) (pediatric) (3) HTN (hypertension): Code(s): I10 - Essential (primary) hypertension (4) High cholesterol: Code(s): E78.00 - Pure hypercholesterolemia, unspecified (5) Mixed hyperlipidemia: Code(s): E78.2 - Mixed hyperlipidemia (6) Essential hypertension: Code(s): I10 - Essential (primary) hypertension (7) NAFLD (nonalcoholic fatty liver disease): Code(s): K76.0 - Fatty (change of) liver, not elsewhere classified Plan The patient is congratulated on his ongoing weight loss and healthy lifestyle changes. He is accompanied by his today and stated that he would prefer to maintain medical weight loss rather than move forward with sleeve gastrectomy. I did review the available data, specifically that approximately 5-10% of patients will have durable, long-term weight loss results from a medical weight loss program and that weight regain typically occurs after resuming prior dietary indiscretions. The patient feels that his current weight loss and Education will service an impetus to make healthier choices. We did discuss the more durable results of bariatric surgery, specifically sleeve gastrectomy is I had previously recommended, but the patient stated that he will consider his options and follow up with me and about a month. He may not obtain the upper GI if he is committed to medical weight loss. Will need to coordinate his ongoing care in a medical weight loss program, if this is his wish. Patient's questions have been answered. Coding Level of Care Code Est Pt Level 4 (71817) Diagnoses Obesity with body mass index (BMI) of 30.0 to 39.9 E66.9 RENETTA (obstructive sleep apnea) G47.33 HTN (hypertension) I10 High cholesterol E78.00 Mixed hyperlipidemia E78.2 Essential hypertension I10 NAFLD (nonalcoholic fatty liver disease) K76.0
[2023-03-14 08:54] VITALS: BP 123/59; PULSE 58; TEMP 35.6; O2SAT 98; BMI 36.5
== END 2023-03-14 09:32 | disposition home or self-care (01) ==
PROVIDERS: PCP Family Medicine; Visit Provider Surgery
DX: E66.9 Obesity, unspecified (principal); G47.33 Obstructive sleep apnea (adult) (pediatric); I10 Essential (primary) hypertension; E78.00 Pure hypercholesterolemia, unspecified; E78.2 Mixed hyperlipidemia; K76.0 Fatty (change of) liver, not elsewhere classified
CPT/HCPCS: 99214

== ENCOUNTER → 2023-03-14 08:42 | Outpatient (BNVA) | payer OTHER, SELFPAY | PROVIDERS: PCP Family Medicine; Visit Provider Surgery | DX: E66.01 Morbid (severe) obesity due to excess calories (principal); R42 Dizziness and giddiness ==

== ENCOUNTER 2023-04-08 08:17 | Outpatient (REF) | payer OTHER, SELFPAY ==
--- NOTE | ~2023-04-08 | FL_ITS ---
EXAMINATION: XR FLUOROSCOPY UPPER GI WITH AIR CLINICAL INFORMATION: Preoperative bariatric examination. Patient has history of mild GERD. COMPARISON: None available. TECHNIQUE: Standard technique fluoroscopic air contrast upper GI examination was performed utilizing thick and thin barium, and effervescent granules. Numerous fluoroscopic spot images were obtained. FINDINGS: Lateral cine images taken during swallow demonstrated normal oral pharyngeal and hypopharyngeal phases, with no evidence of tracheal penetration, aspiration, or other abnormality. Normal epiglottic inversion and soft palate elevation noted. The esophagus has a normal caliber and contour. There is no mass, stricture, or mucosal abnormality. Peristalsis was normal. No evidence of hiatus hernia was present. There was mild episodic gastroesophageal reflux noted during the examination extending approximately to the level of the connie. Dual contrast and single contrast images of the stomach demonstrated normal contour and mucosal pattern without evidence of mass, ulceration, or other abnormality. Contrast freely passed into the gastric antrum and duodenal bulb without delay. Single and air-contrast images of the duodenal bulb demonstrate no abnormality. The duodenal sweep has a normal appearance, course, and mucosal fold appearance. The imaged proximal jejunum has a normal fold pattern and caliber. Cholecystectomy clips incidentally noted. FLUOROSCOPY TIME: 4.0 minutes 26 spot images obtained. DOSE AREA PRODUCT: 50.453 uGy-m2 (microgray-meter squared) FL/FL upper GI w air IMPRESSION: 1. Mild gastroesophageal reflux identified. 2. Otherwise the examination is normal.
== END 2023-04-08 08:18 | disposition home or self-care (01) ==
LOC: HO.XRAY 08:17
PROVIDERS: PCP Family Medicine; Visit Provider Physician Assistant Surgical
DX: E66.01 Morbid (severe) obesity due to excess calories (principal); I10 Essential (primary) hypertension; E78.00 Pure hypercholesterolemia, unspecified
CPT/HCPCS: 74246

== ENCOUNTER → 2023-04-08 08:20 | Outpatient (BNV) | payer OTHER, SELFPAY | PROVIDERS: PCP Family Medicine; Visit Provider Radiology Diagnostic Radiology | DX: K21.9 Gastro-esophageal reflux disease without esophagitis (principal) | CPT/HCPCS: 74246 ==

== ENCOUNTER 2023-04-14 10:15 | Outpatient (REF) | payer OTHER, SELFPAY ==
[2023-04-14 13:47] LABS: Appearance Urine Clear; Color Urine Yellow; Glucose Urine UA Negative (Negative); Leukocyte Esterase Urine Negative (Negative); Nitrite Urine Negative (Negative); PH 5.5 (5.0-9.0); Specific Gravity - Urine 1.025 (1.005-1.025); Urine Blood Negative (Negative); Urine Ketones Negative (Negative); Urine Protein Negative (Neg-Trace)
[2023-04-14 14:09] LABS: Alanine Aminotransferase 26 U/L (0-40); Albumin Level 4.4 g/dL (3.5-5.0); Alkaline Phosphatase 56 U/L (39-117); Anion Gap 13 (12-20); Aspartate Amino Transferase 24 U/L (5-37); Bilirubin Total 0.7 mg/dL (0.0-1.0); Blood Urea Nitrogen 22 mg/dL (9-16); Calcium 9.9 mg/dL (8.4-10.2); Carbon Dioxide 26 mmol/L (22-29); Chloride 104 mmol/L (96-108); Cholesterol 156 mg/dL (<200); Estimated Glomerular Filt Rate > 60; Glucose Fasting 87 mg/dL (60-99); HDL Cholesterol 43 mg/dL (>40); LDL Cholesterol Calculated 83 mg/dL (<100); Potassium 3.5 mmol/L (3.3-5.1); Sodium 139 mmol/L (135-145); Total Protein 7.5 g/dL (6.5-8.0); Triglycerides 150 mg/dL (<150)
[2023-04-14 14:15] LABS: TSH reflex Free T4 1.84 uIU/mL (0.32-4.0)
[2023-04-14 14:16] LABS: Prostate Specific Antigen Scr 0.22 ng/mL (<0.05-4.0)
[2023-04-14 14:37] LABS: Estimated Average Glucose 100 mg/dL; Hemoglobin A1c % 5.1 % (<6.0)
[2023-04-14 14:44] LABS: Creatinine Urine 157.99 mg/dL; Microalbum/Creatinine Ratio Ur 3.7 ug/mg cr (<30)
== END 2023-04-14 10:16 | disposition home or self-care (01) ==
LOC: HO.HMGCLDS 10:15
PROVIDERS: PCP Family Medicine; Visit Provider Family Medicine
DX: Z00.00 Encounter for general adult medical examination without abnormal findings (principal); I10 Essential (primary) hypertension; R73.01 Impaired fasting glucose; Z12.5 Encounter for screening for malignant neoplasm of prostate
CPT/HCPCS: 36415; 80053; 80061; 81003; 82043; 82570; 83036; 84153; 84443

== ENCOUNTER 2023-04-18 08:51 | Outpatient (AMB) | payer OTHER, SELFPAY ==
[2023-04-18 08:56] VITALS: BP 118/78; PULSE 65; O2SAT 96; BMI 37.2
--- NOTE | 2023-04-18 08:56 | A.OFFPC_ITS ---
Vital Signs 04/18/23 08:56 Height 5 ft 10 in Weight 259 lb 4 oz BMI 37.2 BP 118/78 Blood Pressure Location Lt brachial Position Sitting Pulse 65 Pulse Source Pulse Oximeter Pulse Oximetry (%) 96 Oxygen Delivery Method Room Air Intake Visit Reasons: CPE with f/u labs and health maint. Intake Note: Patient is here for physical and would like to discuss left sided sciatica since last Tuesday. Allergies No Known Allergies Allergy (Verified 04/18/23 09:00) Tobacco use date assessed: 04/18/23 Dental Screening Dental Screen Date: 04/18/23 Did you have a dental visit in the last 12 months?: Yes Did you have a dental problem in the last 6 months where you did not have access to dental care?: No Was dental information given to patient?: Patient has dentist HPI CPE with f/u labs and health maint. HPI Details 42 y/o male presents for a CPE with f/u labs and health maintenance. Labs were drawn 04/14/23. Reviewed labs with pt. Triglycerides 150. TC 156. LDL 83. HDL 43. He is on artovastatin 20mg. A1c 5.1%. Blood pressure today 118/78. He is on lisinopril-hydrochlorothiazide 20-25mg daily. He is followed by the bariatric team for his weight. Pt has complaints of a L sided sciatica today. COUNT INCLUDES THE [facility] Medical History No pertinent past medical history Surgical History Hx laparoscopic cholecystectomy History of hernia repair Family History Mother Diabetes Hypertension Heart disease Father High cholesterol Arthritis Son ADHD Son No problems noted. Daughter No problems noted. 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 Tucker Grady, Claire Mario, Reymundo Adam and colleagues, with an educational reese from [employer]. Review of Systems Const Denies chills, Denies fatigue, Denies fever(s), Denies headache(s) and Denies weakness Eyes Denies change in vision ENT Denies dizziness, Denies headache(s), Denies hearing loss, Denies nasal congestion, Denies sinus pain, Denies sinus pressure and Denies sore throat Card Denies chest pain, Denies lightheadedness, Denies dyspnea and Denies other (palpitations) Resp Denies cough, Denies dyspnea and Denies wheezing GI Denies abdominal pain, Denies melena, Denies hematochezia, Denies change in bowel habits, Denies dyspepsia and Denies nausea Denies hematuria and Denies dysuria Musc Denies abnormal gait, Reports back pain, Denies myalgias, Denies arthralgias, Denies numbness and Denies tingling Skin/Breast Denies rash, Denies unusual bruising and Denies wounds Neuro Denies abnormal gait, Denies dizziness, Denies headache(s), Denies memory loss, Denies numbness, Denies Sensory deficit (Neuro), Denies tingling and Denies weakness Psych Denies anxiety, Denies depression and Denies memory loss Endo Denies cold intolerance, Denies fatigue, Denies heat intolerance, Denies polydipsia and Denies polyuria Dionicio/Lymph Denies easy bleeding and Denies easy bruising Aller/Immun Denies wheezing Physical exam (Primary Care) Vital Signs: Last Vital Signs Pulse 65 04/18/23 08:56 BP 118/78 04/18/23 08:56 Pulse Ox 96 04/18/23 08:56 Oxygen Delivery Method Room Air 04/18/23 08:56 BMI result Body Mass Index 37.2 Tobacco/Smoking Status: Tobacco use Status Tobacco use date assessed 04/18/23 04/18/23 09:04 Patient Tobacco Use Status Never used Tobacco 04/18/23 09:04 e-Cigarette/Vaping Use Never Used 04/18/23 09:04 Thrive Assessment: Date of Thrive Assessment Date Thrive assessed 09/24/22 04/18/23 09:04 Const General: no acute distress, well developed, alert and awake Nutritional Appearance: well nourished Orientation/consciousness: patient oriented x3 HENMT Head: Yes normocephalic and Yes atraumatic Ears: hearing grossly normal bilaterally and TM's normal bilaterally General nose exam: Normal external nose present and Normal nares present Mouth: Normal oral and palatal mucosa present and moist mucous membranes Teeth and gingiva: dentition normal Throat: Yes posterior oropharynx normal Eyes General: appearance normal, both eyes and all related structures Pupils: Equal, round and reactive pupils present and Pupil accommodation reflex normal EOM: EOMs intact bilaterally Neck Neck: Yes normal visual inspection, Yes no lymphadenopathy and Yes trachea midline Thyroid: Thyroid normal Carotids: no bruits Lymphatic: no lymphadenopathy noted Chest Chest palpation & inspection: normal inspection of the chest Resp Effort & Inspection: normal respiratory effort Auscultation: clear to auscultation bilaterally Cardio Rate: regular rate Rhythm: regular rhythm Heart sounds: S1 normal heart sound present, S2 normal heart sound present, no gallops, no murmurs and no rubs Bruits: no abdominal aortic bruits and no carotid bruits GI Palpation (GI): No Abdominal aortic bruit present, Soft to palpation, nontender, No hepatosplenomegaly present and No Rebound tenderness present Auscultation: normal bowel sounds General: Yes no CVA tenderness Back/Spine/Pelvis Back: no CVA tenderness Cervical Spine: cervical ROM normal and No Cervical spine tenderness Thoracic/Lumbar Spine: thoraco-lumbar ROM normal, No pain with thoraco-lumbar ROM, No thoracic spinal tenderness and No lumbar spinal tenderness Skin Lesions: no lesions Rashes: no rashes Trauma: no lacerations or abrasions Wounds: no wounds Nails: normal Neuro General: patient oriented x3 Cranial nerves: Yes Equal, round and reactive pupils present Cognition (Neuro): normal cognition Gait exam (Neuro): Normal gait present Motor exam (neuro): 5/5 motor strength present throughout Sensory Exam: No Sensory deficit (Neuro) Deep tendon reflexes (DTR's): Right patellar reflex intensity grade: 2+ and Left patellar reflex intensity grade: 2+ Extrem General: Yes normal to inspection and No edema Psych Appearance: grossly normal Affect: normal affect Attitude: cooperative Thought process: Normal thought process present Assessment and Plan Assessment & Plan (1) Adult general medical exam: Code(s): Z00.00 - Encounter for general adult medical examination without abnormal findings Plan: 42-year-old male presents for complete physical exam Encouraged healthy diet with active lifestyle and plenty of exercise (2) Mixed hyperlipidemia: Code(s): E78.2 - Mixed hyperlipidemia Plan: Much improved on atorvastatin 20 mg daily and his weight loss regimen. Continue diet exercise and weight loss Continue atorvastatin 20 mg daily (3) Obesity with body mass index (BMI) of 30.0 to 39.9: Code(s): E66.9 - Obesity, unspecified Plan: Has continued to lose weight though he has leveled off slightly - encouraged further weight loss (4) Left sided sciatica: Code(s): M54.32 - Sciatica, left side Plan: Likely low back muscle strain with sciatic symptoms Start physical therapy Continue NSAIDs and finish up steroid received at urgent care Ice/heat (5) Essential hypertension: Code(s): I10 - Essential (primary) hypertension Plan: Blood pressure is well controlled. Goal is less than 140/90 Continue current medication regimen (6) Screening for prostate cancer: Code(s): Z12.5 - Encounter for screening for malignant neoplasm of prostate Plan: PSA was within normal limits Orders: Orders Lipid Panel Today E78.2 - Mixed hyperlipidemia, Z00.00 - Encounter for general adult medical examination without abnormal findings Basic Metabolic Panel Fasting Today E78.2 - Mixed hyperlipidemia PT Evaluation and Treatment Today M54.32 - Sciatica, left side Coding Level of Care Code Est Pt Level 3 (83351) Est Pt Prev Care 40-64y(07693) Diagnoses Adult general medical exam Z00.00 Mixed hyperlipidemia E78.2 Obesity with body mass index (BMI) of 30.0 to 39.9 E66.9 Left sided sciatica M54.32 Essential hypertension I10 Screening for prostate cancer Z12.5
== END 2023-04-18 09:59 | disposition home or self-care (01) ==
PROVIDERS: Visit Provider Family Medicine
DX: Z00.00 Encounter for general adult medical examination without abnormal findings (principal); E66.9 Obesity, unspecified; Z68.37 Body mass index [BMI] 37.0-37.9, adult; I10 Essential (primary) hypertension; E78.2 Mixed hyperlipidemia; M54.32 Sciatica, left side
CPT/HCPCS: 99396

== ENCOUNTER 2023-04-18 10:46 | Outpatient (AMB) | payer OTHER, SELFPAY ==
--- NOTE | 2023-04-18 10:52 | A.OFFVIS_ITS ---
Intake VS Expanded 04/18/23 11:00 Height 5 ft 10 in Weight 255 lb 9.6 oz BMI 36.7 BP 138/72 Blood Pressure Location Rt brachial Blood Pressure Position Sitting Pulse 55 Pulse Source Pulse Oximeter Temp 96.9 F Temperature Source Tympanic Pulse Oximetry 97 Oxygen Delivery Method Room Air Body Fat 87.4 Body Fat Percentage 34.2 Free Fat Mass 168.2 Muscle Mass 160.0 Visceral Mass 18.0 Water Mass 119.8 BMR 2,310 Intake Visit Reasons: ov f/u SWL Allergies No Known Allergies Allergy (Verified 04/18/23 10:55) HPI HPI Comments History of Present Illness Details The patient is a 42-year-old gentleman with a lifelong struggle with obesity who entered the surgical weight loss program at a weight of 279.6 lb/BMI of 40.1 with the comorbidities of obstructive sleep apnea requiring CPAP, hypertension and hyper lipid disease. In October of this year, he presented with gangrenous cholecystitis and, following successful surgery, he initial wanted to enter the surgical weight loss program, but has been considering dropping out due to his progress. He is very excited by his progress and notes that he has much more energy since entering the program in losing weight. He notes that several weeks ago, he had a low back strain and is now currently on a Medrol Dosepak for left sciatica. He is tolerating his protein shakes well in his both walking and lifting weights for exercise. He is congratulated on his interval weight loss down to BMI of 36.7/weight of 255.6 lb today. This represents a 20 lb weight loss. The patient re stated his preference to continued medical weight loss and he would like to reconsider bariatric surgery since he is making such progress. He otherwise denies any interval change to his health history, except as noted with the left sciatica flare affecting his ability to exercise. He also reports that when taking his son to college, he went off his diet and so his weight has stabilized at 02:55. GERD 10 AMOR 0 ESS 3 QOL 63 Pre op work up completed as follows: SWL classes:? 03/15 BH appts: cleared-01/17/23 ? ? RD appts: cleared-02/03/23 Labs: 01/12/23-B12:325 H. pylori: 02/03/23-neg CXR: 01/12/23-nad EK01/13/23-sinus blane ABD U/S: 02/03/23-fatty liver UGI: No HH, mild GERD PFSH Medical History No pertinent past medical history Surgical History Hx laparoscopic cholecystectomy History of hernia repair Family History Mother Diabetes Hypertension Heart disease Father High cholesterol Arthritis Son ADHD Son No problems noted. Daughter No problems noted. 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/hazards: No Cognitive needs: No Hearing needs: No Vision needs: No Review of Systems Const All systems reviewed & are unremarkable except as noted in HPI and below Reports as per HPI Physical Exam On exam, the patient is in good spirits and is nontoxic He remains anicteric He is in no acute respiratory distress His abdomen is obese but benign Results Reviewed Results Reviewed: Abdominal ultrasound dated 02/03/23 shows NAFLD CXR NAD UGI No HH, mild GERD Labs including hemoglobin of 14.4, normal indices and normal iron studies Multivitamins were within normal parameters Helicobacter pylori is negative CRP is elevated 0.79 Assessment & Plan Assessment & Plan (1) Obesity with body mass index (BMI) of 30.0 to 39.9: Code(s): E66.9 - Obesity, unspecified (2) NAFLD (nonalcoholic fatty liver disease): Code(s): K76.0 - Fatty (change of) liver, not elsewhere classified (3) Acute gangrenous cholecystitis: Code(s): K81.0 - Acute cholecystitis (4) Hx laparoscopic cholecystectomy: Comment: 10/15/22 Ti Villaseñor MD Code(s): Z90.49 - Acquired absence of other specified parts of digestive tract (5) High cholesterol: Code(s): E78.00 - Pure hypercholesterolemia, unspecified (6) HTN (hypertension): Code(s): I10 - Essential (primary) hypertension (7) RENETTA (obstructive sleep apnea): Code(s): G47.33 - Obstructive sleep apnea (adult) (pediatric) Plan The patient is congratulated on his healthy lifestyle changes and weight loss since I became involved in his care because of a lap choly. The patient would l kimberly to be placed on a wait list for medical weight loss and will continue his current diet plan. If he wishes to re-enter the surgical weight loss program, he will call. The importance of follow-up with his PCP regarding his comorbidities and sciatica was reviewed. His questions seemed to be satisfactorily answered. Coding Level of Care Code Est Pt Level 4 (62146) Diagnoses Obesity with body mass index (BMI) of 30.0 to 39.9 E66.9 NAFLD (nonalcoholic fatty liver disease) K76.0 Acute gangrenous cholecystitis K81.0 Hx laparoscopic cholecystectomy Z90.49 High cholesterol E78.00 HTN (hypertension) I10 RENETTA (obstructive sleep apnea) G47.33
[2023-04-18 11:00] VITALS: BP 138/72; PULSE 55; TEMP 36.1; O2SAT 97; BMI 36.7
== END 2023-04-18 11:16 | disposition home or self-care (01) ==
PROVIDERS: PCP Family Medicine; Visit Provider Surgery
DX: E66.9 Obesity, unspecified (principal); K76.0 Fatty (change of) liver, not elsewhere classified; K81.0 Acute cholecystitis; Z90.49 Acquired absence of other specified parts of digestive tract; E78.00 Pure hypercholesterolemia, unspecified; I10 Essential (primary) hypertension; G47.33 Obstructive sleep apnea (adult) (pediatric)
CPT/HCPCS: 99214

== ENCOUNTER → 2023-04-18 10:46 | Outpatient (BNVA) | payer OTHER, SELFPAY | PROVIDERS: PCP Family Medicine; Visit Provider Surgery ==

== ENCOUNTER 2023-09-01 10:20 | Outpatient (REF) | payer OTHER, SELFPAY ==
[2023-09-01 12:28] LABS: Anion Gap 11 (12-20); Blood Urea Nitrogen 17 mg/dL (9-16); Calcium 9.4 mg/dL (8.4-10.2); Carbon Dioxide 28 mmol/L (22-29); Chloride 102 mmol/L (96-108); Cholesterol 146 mg/dL (<200); Estimated Glomerular Filt Rate > 60; Glucose Fasting 86 mg/dL (60-99); HDL Cholesterol 37 mg/dL (>40); LDL Cholesterol Calculated 86 mg/dL (<100); Potassium 4.1 mmol/L (3.3-5.1); Sodium 137 mmol/L (135-145); Triglycerides 116 mg/dL (<150)
== END 2023-09-01 10:21 | disposition home or self-care (01) ==
LOC: HO.WFDLDS 10:20
PROVIDERS: Visit Provider Family Medicine
DX: Z00.00 Encounter for general adult medical examination without abnormal findings (principal); E78.2 Mixed hyperlipidemia
CPT/HCPCS: 36415; 80048; 80061

== ENCOUNTER 2023-09-12 08:27 | Outpatient (AMB) | payer OTHER, SELFPAY ==
[2023-09-12 08:35] VITALS: BP 125/68; PULSE 75; RESP 14; TEMP 36.5; O2SAT 97; BMI 38.3
--- NOTE | 2023-09-12 08:35 | MHC.PC.OV ---
Vital Signs 09/12/23 08:35 Height 5 ft 10 in Weight 267 lb 4 oz BMI 38.3 BP 125/68 Blood Pressure Location Rt brachial Position Sitting Respiration 14 Pulse 75 Pulse Source Pulse Oximeter Temp 97.7 F Temp Source Temporal Artery Scan Pulse Oximetry (%) 97 Oxygen Delivery Method Room Air Intake Visit Reasons: f/u hypertension and hyperlipidemia Intake Note: Patient states that hes been experiencing numbness and tingling in left foot. English Division Chair Required: No Accompanied by: Self / Same As Patient Allergies No Known Allergies Allergy (Verified 09/12/23 08:40) Tobacco use date assessed: 09/12/23 Dental Screening Dental Screen Date: 09/12/23 Did you have a dental visit in the last 12 months?: Yes Did you have a dental problem in the last 6 months where you did not have access to dental care?: No Was dental information given to patient?: Patient has dentist HPI f/u hypertension and hyperlipidemia HPI Details 42 y/o male presents to f/u hypertension and hyperlipidemia. Labs were drawn 09/01/23. Reviewed labs with pt. Triglycerides 116. TC 146. LDL 86. HDL low at 37. He is on artovastatin 20mg. Blood pressure today 125/68. He is on lisinopril-HCTZ 20-25mg daily. Pt reports back pain much improved but still does have some sciatica-like pain. He reports he has not done physical therapy yet for this. [facility] Medical History No pertinent past medical history Surgical History Hx laparoscopic cholecystectomy History of hernia repair Family History Mother Diabetes Hypertension Heart disease Father High cholesterol Arthritis Son ADHD Son No problems noted. Daughter No problems noted. 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 Tucker Grady, Claire Mario, Reymundo Adam and colleagues, with an educational reese from [employer]. Review of Systems Const Denies chills, Denies fatigue, Denies fever(s), Denies headache(s) and Denies weakness Eyes Denies change in vision ENT Denies dizziness, Denies headache(s), Denies hearing loss, Denies nasal congestion, Denies sinus pain, Denies sinus pressure and Denies sore throat Card Denies chest pain, Denies lightheadedness, Denies dyspnea and Denies other (palpitations) Resp Denies cough, Denies dyspnea and Denies wheezing GI Denies abdominal pain, Denies melena, Denies hematochezia, Denies change in bowel habits, Denies dyspepsia and Denies nausea Denies hematuria and Denies dysuria Musc Denies abnormal gait, Denies myalgias, Denies arthralgias, Denies numbness and Denies tingling Skin/Breast Denies rash, Denies unusual bruising and Denies wounds Neuro Denies abnormal gait, Denies dizziness, Denies headache(s), Denies memory loss, Denies numbness, Denies Sensory deficit (Neuro), Denies tingling and Denies weakness Psych Denies anxiety, Denies depression and Denies memory loss Endo Denies cold intolerance, Denies fatigue, Denies heat intolerance, Denies polydipsia and Denies polyuria Dionicio/Lymph Denies easy bleeding and Denies easy bruising Aller/Immun Denies wheezing Physical exam (Primary Care) Vital Signs: Last Vital Signs Temp 97.7 F 09/12/23 08:35 Pulse 75 09/12/23 08:35 Resp 14 09/12/23 08:35 BP 125/68 09/12/23 08:35 Pulse Ox 97 09/12/23 08:35 Oxygen Delivery Method Room Air 09/12/23 08:35 BMI result Body Mass Index 38.3 Tobacco/Smoking Status: Tobacco use Status Tobacco use date assessed 09/12/23 09/12/23 08:42 Patient Tobacco Use Status Never used Tobacco 09/12/23 08:42 e-Cigarette/Vaping Use Never Used 09/12/23 08:42 Thrive Assessment: Date of Thrive Assessment Date Thrive assessed 09/24/22 09/12/23 08:42 Const General: no acute distress, well developed, alert and awake Nutritional Appearance: well nourished Orientation/consciousness: patient oriented x3 HENMT Head: Yes normocephalic and Yes atraumatic Ears: hearing grossly normal bilaterally and TM's normal bilaterally General nose exam: Normal external nose present and Normal nares present Mouth: Normal oral and palatal mucosa present and moist mucous membranes Teeth and gingiva: dentition normal Throat: Yes posterior oropharynx normal Eyes General: appearance normal, both eyes and all related structures Pupils: Equal, round and reactive pupils present and Pupil accommodation reflex normal EOM: EOMs intact bilaterally Neck Neck: Yes normal visual inspection, Yes no lymphadenopathy and Yes trachea midline Thyroid: Thyroid normal Carotids: no bruits Lymphatic: no lymphadenopathy noted Chest Chest palpation & inspection: normal inspection of the chest Resp Effort & Inspection: normal respiratory effort Auscultation: clear to auscultation bilaterally Cardio Rate: regular rate Rhythm: regular rhythm Heart sounds: S1 normal heart sound present, S2 normal heart sound present, no gallops, no murmurs and no rubs Bruits: no abdominal aortic bruits and no carotid bruits GI Palpation (GI): No Abdominal aortic bruit present, Soft to palpation, nontender, No hepatosplenomegaly present and No Rebound tenderness present Auscultation: normal bowel sounds General: Yes no CVA tenderness Back/Spine/Pelvis Back: no CVA tenderness Cervical Spine: cervical ROM normal and No Cervical spine tenderness Thoracic/Lumbar Spine: thoraco-lumbar ROM normal, No pain with thoraco-lumbar ROM, No thoracic spinal tenderness and No lumbar spinal tenderness Skin Lesions: no lesions Rashes: no rashes Trauma: no lacerations or abrasions Wounds: no wounds Nails: normal Neuro General: patient oriented x3 Cranial nerves: Yes Equal, round and reactive pupils present Cognition (Neuro): normal cognition Gait exam (Neuro): Normal gait present Motor exam (neuro): 5/5 motor strength present throughout Sensory Exam: No Sensory deficit (Neuro) Deep tendon reflexes (DTR's): Right patellar reflex intensity grade: 2+ and Left patellar reflex intensity grade: 2+ Extrem General: Yes normal to inspection and No edema Psych Appearance: grossly normal Affect: normal affect Attitude: cooperative Thought process: Normal thought process present Assessment and Plan Assessment & Plan (1) Essential hypertension: Code(s): I10 - Essential (primary) hypertension Plan: Blood?pressure?is?well?controlled.??Goal?is less?than?140/90 Continue?current?medication?regimen (2) Mixed hyperlipidemia: Code(s): E78.2 - Mixed hyperlipidemia Plan: TC?and?LDL?appear?well?controlled.??Triglycerides?are?improved. HDL?is?low.??Encouraged?exercise (3) Low HDL (under 40): Code(s): E78.6 - Lipoprotein deficiency Plan: As?above,?encouraged?exercise He?had?been?having?some?difficulty?with?this?with?some?low?back?pain?and?left-sided?sciatica?symptoms Still?gets?some?tingling?down?left?leg (4) Left sided sciatica: Code(s): M54.32 - Sciatica, left side Plan: Left-sided?sciatica?pain?and?tingling. Pain?has?resolved?but?still?having?some?tingling?sensations?on?the?left?side He?has?not?started?physical?therapy?but?will?do?so If?not?improving?he?can?let?me?know?and?would?refer?for?evaluation?with?Neurology?or?physiology. Coding Level of Care Code Est Pt Level 4 (93533) Diagnoses Essential hypertension I10 Mixed hyperlipidemia E78.2 Low HDL (under 40) E78.6 Left sided sciatica M54.32
== END 2023-09-12 09:00 | disposition home or self-care (01) ==
PROVIDERS: PCP Family Medicine; Visit Provider Family Medicine
DX: I10 Essential (primary) hypertension (principal); E78.2 Mixed hyperlipidemia; E78.6 Lipoprotein deficiency; M54.32 Sciatica, left side
CPT/HCPCS: 99214

== ENCOUNTER 2023-10-19 07:00 | Outpatient (RCR) | payer OTHER, SELFPAY ==
--- NOTE | 2023-09-21 10:53 | MHC.PT.EP ---
[facility] [place] Office [place] Office [place] Office [address] Gustabo Dubois [address] [phone] F: [phone] F: [phone] F: [phone] F: [phone] Physical Therapy Plan of Care Date of Evaluation: 09/21/23 Date of Surgery: NA Diagnosis: L SIDED SCIATICA Assessment: Pt IS 42 YO M REFERRED TO PT FROM DR HENDRICKSON WITH L SIDED SCIATICA. Pt REPORTS SXS STARTED ABOUT 5 MONTHS AGO AND HAVE NOW IMPROVED TO MOST SXS L FOOT. PRESENTS WITH L FOOT PARESTHESIA DECREASED WITH ADEOLA. SHOULD BENEFIT FROM SERGIO EXTENSION PROGRAM WITH PROGRESSION TO NEUTRAL SPINE LUMBAR/LE STRETCH AND CORE STRENGTHENING Frequency and Duration: The patient will be seen 1X/WK X 2 WKS THEN 2X/WK X 4 WKS Short Term Goals: 1. INCREASED AWARENESS BACK CARE AND POSTURE 2. Pt TO PERF 2-3 TASKS WITH PROPER BODY MECH Nursing Home Goals: 1. CENTRALIZED SXS L 2. I HEP WITH DC EX PLAN 3. IMPROVED MODIFIED OSWESTRY ( SOC) Treatment Plan: Modalities to reduce pain, spasms and effusion. Manual therapy to restore motion and function. Therapeutic exercise to improve strength and flexibility. Neuromuscular re-education for posture and balance. Therapeutic activities to return to functional activities of daily living. Electronically signed by: ALAN REED PT Please sign and return to therapist. Thank you for your referral.
--- NOTE | 2023-12-14 14:53 | MHC.PT.DC ---
[facility] [place] Office [place] Office [place] Office [address] Gustabo Dubois [address] [phone] F: [phone] F: [phone] F: [phone] F: [phone] Physical Therapy Discharge Report Diagnosis: L SIDED SCIATICA Date of Surgery: NA Date of Evaluation: 09/21/23 Date of Discharge: 12/14/23 Treatments to Date: 5 Cancellations to Date: No Shows to Date: Discharge Status: Achieved Goals Improved Function Independent with HEP Patient Elected to Stop Discharge Summary: PER ASSESSMENT FROM LAST APPT (10/19/23) TODAY WAS LAST APPT SCHEDULED. TO START NEW JOB (8 VS 12 HRS) NEXT TUESDAY (7-3:30). HAS MET MOST PT GOALS, HAS HEP. WILL KEEP RECORD OPEN X 2 WEEKS FOR Pt TO CALL TO REPORT SXS WITH NEW JOB NO FURTHER APPTS SCHEDULED OF THIS DC DATE Electronically signed by: AALN REED PT Please sign and return to therapist. Thank you for your referral.
== END 2023-12-14 14:54 | disposition home or self-care (01) ==
LOC: HO.PTWFD 07:00
PROVIDERS: PCP Family Medicine; Visit Provider Family Medicine
DX: M54.32 Sciatica, left side (principal)
CPT/HCPCS: 97110; 97140; 97150; 97161; 97530; 97535

== ENCOUNTER 2024-01-21 07:56 | Outpatient (REF) | payer OTHER, SELFPAY ==
[2024-01-21 08:22] LABS: Hematocrit 43.4 % (42.0-52.0); Mean Corpuscular HGB Conc 34.6 g/dl (31.0-36.0); Mean Corpuscular Hemoglobin 32.2 pg (27.0-33.0); Mean Corpuscular Volume 93.1 fL (80.0-98.0); Mean Platelet Volume 9.4 fL (9.4-12.4); Platelet Count 287 X10*3/uL (160-400); Red Blood Count 4.66 X10*6/uL (4.60-5.80); Red Cell Distribution Width 12.5 % (11.0-16.0); White Blood Count 6.9 X10*3/uL (4.8-10.8)
[2024-01-21 08:49] LABS: Alanine Aminotransferase 32 U/L (0-40); Albumin Level 4.8 g/dL (3.5-5.0); Alkaline Phosphatase 61 U/L (39-117); Anion Gap 13 (12-20); Aspartate Amino Transferase 29 U/L (5-37); Bilirubin Total 0.7 mg/dL (0.0-1.0); Blood Urea Nitrogen 15 mg/dL (9-16); Calcium 9.6 mg/dL (8.4-10.2); Carbon Dioxide 29 mmol/L (22-29); Chloride 104 mmol/L (96-108); Estimated Glomerular Filt Rate > 60; Glucose Random 102 mg/dL (60-115); Potassium 4.5 mmol/L (3.3-5.1); Sodium 141 mmol/L (135-145); Total Protein 7.7 g/dL (6.5-8.0)
== END 2024-01-21 07:57 | disposition home or self-care (01) ==
LOC: HO.LAB 07:56
PROVIDERS: Absent Provider Family Medicine; PCP Family Medicine; Visit Provider Nurse Practitioner Family
DX: R42 Dizziness and giddiness (principal)
CPT/HCPCS: 36415; 80053; 85027

== ENCOUNTER 2024-01-27 09:19 | Outpatient (AMB) | payer OTHER, SELFPAY ==
--- NOTE | 2024-01-27 09:36 | A.OFFPC_ITS ---
Vital Signs 01/27/24 09:38 Height 5 ft 10 in Weight 279 lb 2 oz BMI 40.0 BP 130/70 Blood Pressure Location Rt brachial Position Sitting Pulse 60 Pulse Source Pulse Oximeter Pulse Oximetry (%) 98 Oxygen Delivery Method Room Air Intake Visit Reasons: f/u htm, hyperlipidemia - r/s 12/11 Intake Note: Patient is here to follow up on hypertension and weight today. Allergies No Known Allergies Allergy (Verified 01/27/24 09:40) Medication List - Last Reconciled 01/27/24 by Jerrod Lizama MD atorvastatin 20 mg PO BEDTIME 90 days lisinopril-hydrochlorothiazide 20-25 mg 1 tab PO DAILY 30 days loratadine (Claritin) 10 mg PO DAILY multivitamin 1 tab PO DAILY omeprazole 20 mg PO DAILY Tobacco use date assessed: 01/27/24 Dental Screening Dental Screen Date: 09/12/23 HPI f/u htm, hyperlipidemia - r/s 12/11 HPI Details 43 y/o male presents to f/u hypertension , hyperlipidemia. Blood pressure today 130/70. He is on lisinopril-hydrochlorothiazide 20-25mg daily. No recent lipid panel to review. He notes he has been working on his exercise. He notes he has trialed PT September/October for his sciatica and states this did not seem to do much. HPI Comments History of Present Illness Details Documentation assistance for Jerrod Lizama MD, was provided by Michael Munoz, [employer] on 01/27/2024 at 10:18 AM EST. I, Dr. Lizama, have read, observed, and verified documentation. [facility] Medical History No pertinent past medical history Surgical History Hx laparoscopic cholecystectomy History of hernia repair Family History Mother Diabetes Hypertension Heart disease Father High cholesterol Arthritis Son ADHD Son No problems noted. Daughter No problems noted. 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 Tucker Grady, Claire Mario, Reymundo Adam and colleagues, with an educational reese from [employer]. Review of Systems Const Denies chills, Denies fatigue, Denies fever(s), Denies headache(s) and Denies weakness ENT Denies dizziness and Denies headache(s) Card Denies dyspnea Resp Denies cough, Denies dyspnea, Denies wheezing and Denies other (shortness of breath) Musc Denies numbness and Denies tingling Neuro Denies dizziness, Denies headache(s), Denies numbness, Denies tingling and Denies weakness Psych Denies anxiety and Denies depression Endo Denies fatigue Aller/Immun Denies wheezing Physical exam (Primary Care) Vital Signs: Last Vital Signs Pulse 60 01/27/24 09:38 BP 130/70 01/27/24 09:38 Pulse Ox 98 01/27/24 09:38 Oxygen Delivery Method Room Air 01/27/24 09:38 BMI result Body Mass Index 40.0 Tobacco/Smoking Status: Tobacco use Status Tobacco use date assessed 01/27/24 01/27/24 09:43 Patient Tobacco Use Status Never used Tobacco 01/27/24 09:36 e-Cigarette/Vaping Use Never Used 01/27/24 09:36 Thrive Assessment: Date of Thrive Assessment Date Thrive assessed 09/24/22 01/27/24 09:36 Const General: well developed; No acute distress Nutritional Appearance: well nourished and obese morbidly obese Orientation/consciousness: patient oriented x3 HENMT Head: Yes normocephalic and Yes atraumatic Eyes General: appearance normal, both eyes and all related structures Pupils: Equal, round and reactive pupils present EOM: EOMs intact bilaterally Resp Effort & Inspection: normal respiratory effort Neuro General: patient oriented x3 and gait normal Cranial nerves: Yes Equal, round and reactive pupils present Psych Affect: normal affect Assessment and Plan Assessment & Plan (1) Essential hypertension: Code(s): I10 - Essential (primary) hypertension Plan: Blood?pressure?is?controlled.??Goal?is?less?than?140/90 Continue?current?medication Encouraged?working?at?additional?weight?loss?and?exercise?as?tolerated (2) Mixed hyperlipidemia: Code(s): E78.2 - Mixed hyperlipidemia Plan: Controlled?with?atorvastatin?but?his?HDL?has?been?low Encouraged?exercise?as?tolerated Will?recheck?with?his?pre?physical?labs?in?April (3) Low HDL (under 40): Code(s): E78.6 - Lipoprotein deficiency Plan: As?above (4) Left sided sciatica: Code(s): M54.32 - Sciatica, left side Plan: Ongoing?left-sided?sciatica?with?numbness?at?lateral?aspect?of?his?left?foot Has?had?physical?therapy?which?did?not?help Will?refer?to?physiatry (5) Strain of right Achilles tendon: Code(s): S86.011A - Strain of right Achilles tendon, initial encounter Plan: Ice/heat?and?gentle?stretching Referred?to?physiatry Orders: Orders Comprehensive [place]. Panel Fast Today Z00.00 - Encounter for general adult medical examination without abnormal findings Lipid Panel Today Z00.00 - Encounter for general adult medical examination without abnormal findings Microalbumin, Random (w Creat) Today I10 - Essential (primary) hypertension TSH reflex Free T4 Today Z00.00 - Encounter for general adult medical examination without abnormal findings Prostate Specific Antigen Scr Today Z12.5 - Encounter for screening for malignant neoplasm of prostate UA and rflx microscopic Today Z00.00 - Encounter for general adult medical examination without abnormal findings Referrals Physiatry Referral M54.32 - Sciatica, left side, S86.011A - Strain of right Achilles tendon, initial encounter Coding Level of Care Code Est Pt Level 4 (90334) Diagnoses Essential hypertension I10 Mixed hyperlipidemia E78.2 Low HDL (under 40) E78.6 Left sided sciatica M54.32 Strain of right Achilles tendon S86.011A
[2024-01-27 09:38] VITALS: BP 130/70; PULSE 60; O2SAT 98; BMI 40.0
== END 2024-01-27 11:35 | disposition home or self-care (01) ==
PROVIDERS: PCP Family Medicine; Visit Provider Family Medicine
DX: I10 Essential (primary) hypertension (principal); E78.2 Mixed hyperlipidemia; E78.6 Lipoprotein deficiency; M54.32 Sciatica, left side; S86.011A Strain of right Achilles tendon, initial encounter
CPT/HCPCS: 99214

== ENCOUNTER 2024-04-20 08:26 | Outpatient (REF) | payer OTHER, SELFPAY ==
[2024-04-20 11:49] LABS: Appearance Urine Clear; Color Urine Yellow; Glucose Urine UA Negative (Negative); Leukocyte Esterase Urine Negative (Negative); Nitrite Urine Negative (Negative); Specific Gravity - Urine 1.015 (1.005-1.025); Urine Blood Negative (Negative); Urine Ketones Negative (Negative); Urine Protein Negative (Neg-Trace)
[2024-04-20 12:28] LABS: Alanine Aminotransferase 35 U/L (0-40); Albumin Level 4.1 g/dL (3.5-5.0); Alkaline Phosphatase 58 U/L (39-117); Anion Gap 12 (12-20); Aspartate Amino Transferase 30 U/L (5-37); Bilirubin Total 0.8 mg/dL (0.0-1.0); Blood Urea Nitrogen 15 mg/dL (9-16); Calcium 9.8 mg/dL (8.4-10.2); Carbon Dioxide 28 mmol/L (22-29); Chloride 101 mmol/L (96-108); Cholesterol 148 mg/dL (<200); Estimated Glomerular Filt Rate > 60; Glucose Fasting 96 mg/dL (60-99); HDL Cholesterol 39 mg/dL (>40); LDL Cholesterol Calculated 77 mg/dL (<100); Sodium 137 mmol/L (135-145); Total Protein 7.3 g/dL (6.5-8.0); Triglycerides 163 mg/dL (<150)
[2024-04-20 12:44] LABS: Creatinine Urine 92.59 mg/dL; Microalbumin Urine < 5.0 mg/L
[2024-04-20 12:46] LABS: TSH reflex Free T4 1.68 uIU/mL (0.32-4.0)
[2024-04-20 12:47] LABS: Prostate Specific Antigen Scr 0.32 ng/mL (<0.05-4.0)
== END 2024-04-20 08:27 | disposition home or self-care (01) ==
LOC: HO.WFDLDS 08:26
PROVIDERS: Visit Provider Family Medicine
DX: Z00.00 Encounter for general adult medical examination without abnormal findings (principal); I10 Essential (primary) hypertension; Z12.5 Encounter for screening for malignant neoplasm of prostate
CPT/HCPCS: 36415; 80053; 80061; 81003; 82043; 82570; 84153; 84443

== ENCOUNTER 2024-04-23 08:58 | Outpatient (AMB) | payer OTHER, SELFPAY ==
--- NOTE | 2024-04-23 09:06 | MHC.PC.OV ---
Vital Signs 04/23/24 09:12 Height 5 ft 10 in Weight 289 lb BMI 41.5 BP 110/60 Blood Pressure Location Lt brachial Position Sitting Respiration 12 Pulse 81 Pulse Source Pulse Oximeter Temp 97.6 F Temp Source Tympanic Pulse Oximetry (%) 98 Oxygen Delivery Method Room Air Intake Visit Reasons: CPE with f/u labs and health maint. 30 mins Intake Note: CPE Allergies No Known Allergies Allergy (Verified 04/23/24 09:07) Medication List - Last Reconciled 04/23/24 by Jerrod Lizama MD atorvastatin 20 mg PO BEDTIME 90 days lisinopril-hydrochlorothiazide 20-25 mg 1 tab PO DAILY 30 days loratadine (Claritin) 10 mg PO DAILY multivitamin 1 tab PO DAILY omeprazole 20 mg PO DAILY Tobacco use date assessed: 04/23/24 Dental Screening Dental Screen Date: 04/23/24 Did you have a dental visit in the last 12 months?: Yes Did you have a dental problem in the last 6 months where you did not have access to dental care?: No Was dental information given to patient?: Patient has dentist HPI CPE with f/u labs and health maint. 30 mins HPI Details 43 y/o male presents for a CPE with f/u labs and health maintenance. Labs drawn 04/20/24. Reviewed labs with pt. Triglycerides 163. TC 148. LDL 77. HDL low at 39. He is on artovastatin 20mg. PSA 0.32. Blood pressure today 110/60, 81p. He is on lisinopril-hydrochlorothiazide 20-25mg daily. L sided sciatica and pt notes he has injection therapy scheduled soon. Has not been exercising much due to back pain. HPI Comments History of Present Illness Details Documentation assistance for Jerrod Lizama MD, was provided by Michael Munoz, Digital Media Analyst on 04/23/2024 at 9:31 AM DANIELA. Darell, Dr. Lizama, have read, observed, and verified documentation. PFSH Medical History No pertinent past medical history Surgical History Hx laparoscopic cholecystectomy History of hernia repair Family History Mother Diabetes Hypertension Heart disease Father High cholesterol Arthritis Son ADHD Son No problems noted. Daughter No problems noted. 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 1. Little interest or pleasure in doing things: not at all 2. Feeling down, depressed, or hopeless: not at all 3. Trouble falling or staying asleep, or sleeping too much: not at all 4. Feeling tired or having little energy: not at all 5. Poor appetite or overeating: not at all 6. Feeling bad about yourself - or that you are a failure or have let yourself or your family down: not at all 7. Trouble concentrating on things, such as reading the newspaper or watching television: not at all 8. Moving or speaking so slowly that other people could have noticed. Or the opposite - being so fidgety or restless that you have been moving around a lot more than usual: not at all 9. Thoughts that you would be better off or of hurting yourself in some way: not at all Total score: 0 Depression Screening Interpretation: Negative Depression Screening Done: Yes 72501 - PHQ-9 Billing: Yes Source: Developed by Drs. Tucker Grady, Claire Mario, Reymundo Adam and colleagues, with an educational reese from [employer]. Thrive Questionnaire Date Thrive assessed: 04/23/24 I am a: Patient What is your living situation today?: I have a steady place to live Within the past 12 months, did the food you bought not last and you didn't have the money to get more?: Never true Within the past 12 months, did you worry whether your food would run out before you got money to buy more?: Never true Do you have trouble paying for medicines?: No Do you have trouble getting transportation to medical appointments?: No Do you have trouble paying your heating and electricity bill?: No Do you have trouble taking care of your child, family member or friend?: No Do you have trouble with day-to-day activities such as bathing, preparing meals, shopping, managing finances, etc.?: No Are you currently unemployed and looking for a job?: No Are you interested in more education?: No Please select the resources that you would like help with: None Currently or been in a relationship where the following occur: No concerns reported THRIVE Score: 0 AUDIT C Alcohol Use Questionnaire (AUDIT-C) 1. How often do you have a drink containing alcohol?: Monthly or less 2. How many drinks containing alcohol do you have on a typical day when you are drinking?: 1 or 2 3. How often do you have six or more drinks on one occasion?: Never Total Score: 1 DIMA-7 AMB Questionnaire DIMA-7 Date DIMA - 7 assessed: 04/23/24 Feeling nervous, anxious, or on edge: 0 = Not at all Not being able to stop or control worryin = Not at all Worrying too much about different things: 0 = Not at all Trouble relaxin = Not at all Being so restless that it is hard to sit still: 0 = Not at all Becoming easily annoyed or irritable: 0 = Not at all Feeling afraid as if something awful might happen: 0 = Not at all Total DIAM-7 score (0-4 normal; 5-9 mild; 10-14 moderate; 15-21 severe): 0 Source: Developed by Drs. Tucker Grady, Claire Mario, Reymundo Adam and colleagues, with an educational reese from [employer]. DIMA-7 Assessment Billing DIMA-7 Assessment Tool: DIMA-7 Assessment 61900 Review of Systems Const Denies chills, Denies fatigue, Denies fever(s), Denies headache(s) and Denies weakness Eyes Denies change in vision ENT Denies dizziness, Denies headache(s), Denies hearing loss, Denies nasal congestion, Denies sinus pain, Denies sinus pressure and Denies sore throat Card Denies chest pain, Denies lightheadedness, Denies dyspnea and Denies other (palpitations) Resp Denies cough, Denies dyspnea and Denies wheezing GI Denies abdominal pain, Denies melena, Denies hematochezia, Denies change in bowel habits, Denies dyspepsia and Denies nausea Denies hematuria and Denies dysuria Musc Denies abnormal gait, Denies myalgias, Denies arthralgias, Denies numbness and Denies tingling Skin/Breast Denies rash, Denies unusual bruising and Denies wounds Neuro Denies abnormal gait, Denies dizziness, Denies headache(s), Denies memory loss, Denies numbness, Denies Sensory deficit (Neuro), Denies tingling and Denies weakness Psych Denies anxiety, Denies depression and Denies memory loss Endo Denies cold intolerance, Denies fatigue, Denies heat intolerance, Denies polydipsia and Denies polyuria Dionicio/Lymph Denies easy bleeding and Denies easy bruising Aller/Immun Denies wheezing Physical exam (Primary Care) Vital Signs: Last Vital Signs Temp 97.6 F 04/23/24 09:12 Pulse 81 04/23/24 09:12 Resp 12 04/23/24 09:12 BP 110/60 04/23/24 09:12 Pulse Ox 98 04/23/24 09:12 Oxygen Delivery Method Room Air 04/23/24 09:12 BMI result Body Mass Index 41.5 Tobacco/Smoking Status: Tobacco use Status Tobacco use date assessed 04/23/24 04/23/24 09:14 Patient Tobacco Use Status Never used Tobacco 04/23/24 09:14 e-Cigarette/Vaping Use Never Used 04/23/24 09:14 PHQ-9: PHQ-9 Score PHQ-9: Total score 0 04/23/24 09:14 Depression Screening Interpretation: Negative Thrive Assessment: Date of Thrive Assessment Date Thrive assessed 04/23/24 04/23/24 09:14 Currently or been in a relationship where the following occur: No concerns reported Const General: no acute distress, well developed, alert and awake Nutritional Appearance: well nourished Orientation/consciousness: patient oriented x3 HENMT Head: Yes normocephalic and Yes atraumatic Ears: hearing grossly normal bilaterally and TM's normal bilaterally General nose exam: Normal external nose present and Normal nares present Mouth: Normal oral and palatal mucosa present and moist mucous membranes Teeth and gingiva: dentition normal Throat: Yes posterior oropharynx normal Eyes General: appearance normal, both eyes and all related structures Pupils: Equal, round and reactive pupils present and Pupil accommodation reflex normal EOM: EOMs intact bilaterally Neck Neck: Yes normal visual inspection, Yes no lymphadenopathy and Yes trachea midline Thyroid: Thyroid normal Carotids: no bruits Lymphatic: no lymphadenopathy noted Chest Chest palpation & inspection: normal inspection of the chest Resp Effort & Inspection: normal respiratory effort Auscultation: clear to auscultation bilaterally Cardio Rate: regular rate Rhythm: regular rhythm Heart sounds: S1 normal heart sound present, S2 normal heart sound present, no gallops, no murmurs and no rubs Bruits: no abdominal aortic bruits and no carotid bruits GI Palpation (GI): No Abdominal aortic bruit present, Soft to palpation, nontender, No hepatosplenomegaly present and No Rebound tenderness present Auscultation: normal bowel sounds General: Yes no CVA tenderness Back/Spine/Pelvis Back: no CVA tenderness Cervical Spine: cervical ROM normal and No Cervical spine tenderness Thoracic/Lumbar Spine: thoraco-lumbar ROM normal, No pain with thoraco-lumbar ROM, No thoracic spinal tenderness and No lumbar spinal tenderness Skin Lesions: no lesions Rashes: no rashes Trauma: no lacerations or abrasions Wounds: no wounds Nails: normal Neuro General: patient oriented x3 Cranial nerves: Yes Equal, round and reactive pupils present Cognition (Neuro): normal cognition Gait exam (Neuro): Normal gait present Motor exam (neuro): 5/5 motor strength present throughout Sensory Exam: No Sensory deficit (Neuro) Deep tendon reflexes (DTR's): Right patellar reflex intensity grade: 2+ and Left patellar reflex intensity grade: 2+ Extrem General: Yes normal to inspection and No edema Psych Appearance: grossly normal Affect: normal affect Attitude: cooperative Thought process: Normal thought process present Assessment and Plan Assessment & Plan (1) Adult general medical exam: Code(s): Z00.00 - Encounter for general adult medical examination without abnormal findings Plan: 43-year-old?male?presents?for?complete?physical?exam Patient?is?obese?and?gained?more?weight.??Encouraged?weight?loss Encouraged?healthy?diet?with?active?lifestyle?and?plenty?of?exercise (2) Left sided sciatica: Code(s): M54.32 - Sciatica, left side Plan: 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 He?has?injection?therapy?schedule?soon Follow-up?with?physiatry?as?recommended (3) GERD (gastroesophageal reflux disease): Code(s): K21.9 - Gastro-esophageal reflux disease without esophagitis Plan: Controlled?with?omeprazole Continue?current?medication (4) HTN (hypertension): Code(s): I10 - Essential (primary) hypertension Plan: Blood?pressure?is?well?controlled.??Goal?is?less?than?140/90 Continue?current?medication (5) Mixed hyperlipidemia: Code(s): E78.2 - Mixed hyperlipidemia Plan: LDL?cholesterol?well?controlled?on?atorvastatin. Still?has?mildly?low?HDL?and?I?encouraged?exercise?when?he?is?able?to?do?so (6) Screening for prostate cancer: Code(s): Z12.5 - Encounter for screening for malignant neoplasm of prostate Plan: PSA?within?normal?range Will?continue?annual?screen Coding Level of Care Code Est Pt Level 3 (69882) Est Pt Prev Care 40-64y(68589) Diagnoses Adult general medical exam Z00.00 Left sided sciatica M54.32 GERD (gastroesophageal reflux disease) K21.9 HTN (hypertension) I10 Mixed hyperlipidemia E78.2 Screening for prostate cancer Z12.5 Additional Codes DIMA-7 Assessment Billing - DIMA-7 Assessment Tool: DIMA-7 Assessment 40798 ([id number])
[2024-04-23 09:12] VITALS: BP 110/60; PULSE 81; RESP 12; TEMP 36.4; O2SAT 98; BMI 41.5
== END 2024-04-23 09:37 | disposition home or self-care (01) ==
PROVIDERS: PCP Family Medicine; Visit Provider Family Medicine
DX: Z00.00 Encounter for general adult medical examination without abnormal findings (principal); M54.32 Sciatica, left side; K21.9 Gastro-esophageal reflux disease without esophagitis; I10 Essential (primary) hypertension; E78.2 Mixed hyperlipidemia; Z12.5 Encounter for screening for malignant neoplasm of prostate

== ENCOUNTER → 2024-04-23 08:58 | Outpatient (BNVA) | payer OTHER, SELFPAY | PROVIDERS: PCP Family Medicine; Visit Provider Family Medicine | DX: Z00.00 Encounter for general adult medical examination without abnormal findings (principal); M54.32 Sciatica, left side; K21.9 Gastro-esophageal reflux disease without esophagitis; I10 Essential (primary) hypertension; E78.2 Mixed hyperlipidemia; Z79.899 Other long term (current) drug therapy | CPT/HCPCS: 96127 ==

== ENCOUNTER 2024-08-24 08:31 | Outpatient (AMB) | payer OTHER, SELFPAY ==
--- NOTE | 2024-08-24 08:37 | MHC.PC.OV ---
Vital Signs 08/24/24 08:39 Height 5 ft 10 in Weight 294 lb 4 oz BMI 42.2 BP 110/70 Blood Pressure Location Lt brachial Position Sitting Respiration 14 Pulse 63 Pulse Source Pulse Oximeter Pulse Oximetry (%) 96 Oxygen Delivery Method Room Air Intake Visit Reasons: f/u hypertension, weight Intake Note: f/u for htn and weight management pt states he is no longer having back pain Allergies No Known Allergies Allergy (Verified 08/24/24 08:39) Tobacco use date assessed: 04/23/24 Dental Screening Dental Screen Date: 04/23/24 HPI f/u hypertension, weight HPI Details 43 y/o male presents to f/u hypertension, weight. BP today 110/70, 63p. He is on lisinopril-HCTZ 20-25mg daily. Has been starting to get some exercise as his back pain has been improving. HPI Comments History of Present Illness Details Documentation assistance for Jerrod Lizama MD, was provided by Michael Munoz, Compliance Counsel on 08/24/2024 at 9:10 AM EST. I, Dr. Lizama, have read, observed, and verified documentation. [facility] Medical History No pertinent past medical history Surgical History Hx laparoscopic cholecystectomy History of hernia repair Family History Mother Diabetes Hypertension Heart disease Father High cholesterol Arthritis Son ADHD Son No problems noted. Daughter No problems noted. Social History (Updated 04/23/24 @ 09:09 by Marlena Guerrero 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 1. Little interest or pleasure in doing things: not at all 2. Feeling down, depressed, or hopeless: not at all 3. Trouble falling or staying asleep, or sleeping too much: not at all 4. Feeling tired or having little energy: not at all 5. Poor appetite or overeating: not at all 6. Feeling bad about yourself - or that you are a failure or have let yourself or your family down: not at all 7. Trouble concentrating on things, such as reading the newspaper or watching television: not at all 8. Moving or speaking so slowly that other people could have noticed. Or the opposite - being so fidgety or restless that you have been moving around a lot more than usual: not at all 9. Thoughts that you would be better off or of hurting yourself in some way: not at all Total score: 0 Source: Developed by Drs. Tucker Grady, Claire Mario, Reymundo Adam and colleagues, with an educational reese from [employer]. Thrive Questionnaire Date Thrive assessed: 08/22/24 I am a: Patient What is your living situation today?: I have a steady place to live Within the past 12 months, did the food you bought not last and you didn't have the money to get more?: Never true Within the past 12 months, did you worry whether your food would run out before you got money to buy more?: Never true Do you have trouble paying for medicines?: No Do you have trouble getting transportation to medical appointments?: No Do you have trouble paying your heating and electricity bill?: No Do you have trouble taking care of your child, family member or friend?: No Do you have trouble with day-to-day activities such as bathing, preparing meals, shopping, managing finances, etc.?: No Are you currently unemployed and looking for a job?: No Are you interested in more education?: No Please select the resources that you would like help with: None Currently or been in a relationship where the following occur: No concerns reported THRIVE Score: 0 AUDIT C Alcohol Use Questionnaire (AUDIT-C) 1. How often do you have a drink containing alcohol?: 2-4 times a month 2. How many drinks containing alcohol do you have on a typical day when you are drinking?: 1 or 2 3. How often do you have six or more drinks on one occasion?: Never Total Score: 2 DIMA-7 AMB Questionnaire DIMA-7 Date DIMA - 7 assessed: 04/23/24 Feeling nervous, anxious, or on edge: 0 = Not at all Not being able to stop or control worryin = Not at all Worrying too much about different things: 0 = Not at all Trouble relaxin = Not at all Being so restless that it is hard to sit still: 0 = Not at all Becoming easily annoyed or irritable: 1 = Several days Feeling afraid as if something awful might happen: 0 = Not at all Total DIMA-7 score (0-4 normal; 5-9 mild; 10-14 moderate; 15-21 severe): 1 Source: Developed by Drs. Tucker Grady, Claire Mario, Reymundo Adam and colleagues, with an educational reese from [employer]. Review of Systems Const Denies chills, Denies fatigue, Denies fever(s), Denies headache(s) and Denies weakness ENT Denies dizziness and Denies headache(s) Card Denies dyspnea Resp Denies cough, Denies dyspnea, Denies wheezing and Denies other (shortness of breath) Musc Denies numbness and Denies tingling Neuro Denies dizziness, Denies headache(s), Denies numbness, Denies tingling and Denies weakness Psych Denies anxiety and Denies depression Endo Denies fatigue Aller/Immun Denies wheezing Physical exam (Primary Care) Vital Signs: Last Vital Signs Pulse 63 08/24/24 08:39 Resp 14 08/24/24 08:39 BP 110/70 08/24/24 08:39 Pulse Ox 96 08/24/24 08:39 Oxygen Delivery Method Room Air 08/24/24 08:39 BMI result Body Mass Index 42.2 Tobacco/Smoking Status: Tobacco use Status Tobacco use date assessed 04/23/24 08/24/24 08:42 Patient Tobacco Use Status Never used Tobacco 08/24/24 08:42 e-Cigarette/Vaping Use Never Used 08/24/24 08:42 PHQ-9: PHQ-9 Score PHQ-9: Total score 0 08/24/24 08:42 Thrive Assessment: Date of Thrive Assessment Date Thrive assessed 08/22/24 08/24/24 08:42 Currently or been in a relationship where the following occur: No concerns reported Const General: well developed; No acute distress Nutritional Appearance: well nourished Orientation/consciousness: patient oriented x3 HENMT Head: Yes normocephalic and Yes atraumatic Eyes General: appearance normal, both eyes and all related structures Pupils: Equal, round and reactive pupils present EOM: EOMs intact bilaterally Resp Effort & Inspection: normal respiratory effort Auscultation: clear to auscultation bilaterally Cardio Rate: regular rate Rhythm: regular rhythm Heart sounds: S1 normal heart sound present, S2 normal heart sound present, no gallops, no murmurs and no rubs Neuro General: patient oriented x3 and gait normal Cranial nerves: Yes Equal, round and reactive pupils present Psych Affect: normal affect Coding Level of Care Code Est Pt Level 4 (88325) Diagnoses Essential hypertension I10 Morbid obesity E66.01 RENETTA (obstructive sleep apnea) G47.33 Assessment & Plan Assessment & Plan (1) Essential hypertension: Code(s): I10 - Essential (primary) hypertension Category: Medical Plan: Blood?pressure?is?well?controlled.??Goal?is?less?than?140/90 Patient?is?doing?well?on?lisinopril-hydrochlorothiazide Continue?current?medications (2) Morbid obesity: Code(s): E66.01 - Morbid (severe) obesity due to excess calories Category: Medical Plan: No?weight?loss?and?I?encouraged?this?as?well?as?salt/sodium?reduction (3) RENETTA (obstructive sleep apnea): Code(s): G47.33 - Obstructive sleep apnea (adult) (pediatric) Category: Medical Plan Using?CPAP?every?night?and?doing?well. Had?recent?follow-up?with?sleep?medicine.??No?concerns. Continue?CPAP Medications: Refilled lisinopril-hydrochlorothiazide 20-25 mg 1 tab PO DAILY 90 tabs 3RF 90 days
[2024-08-24 08:39] VITALS: BP 110/70; PULSE 63; RESP 14; O2SAT 96; BMI 42.2
== END 2024-08-24 09:13 | disposition home or self-care (01) ==
PROVIDERS: PCP Family Medicine; Visit Provider Family Medicine
DX: I10 Essential (primary) hypertension (principal); E66.01 Morbid (severe) obesity due to excess calories; G47.33 Obstructive sleep apnea (adult) (pediatric); Z68.41 Body mass index [BMI] 40.0-44.9, adult

== ENCOUNTER → 2024-08-24 08:31 | Outpatient (BNVA) | payer OTHER, SELFPAY | PROVIDERS: PCP Family Medicine; Visit Provider Family Medicine ==

== ENCOUNTER 2025-02-15 11:28 | Outpatient (AMB) | payer OTHER, SELFPAY ==
--- NOTE | 2025-02-15 11:37 | A.OFFPC_ITS ---
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 Blood pressure today 104/64, 69p. He is on lisinopril-HCTZ 20-25mg daily. Reports lower extremity/foot pain. He did not want to put weight on it. Reports lingering cough for the past week. Denies fevers/chills. Denies anyone else being sick. Denies any nasal congestion. He does feel cough has already been improving. HPI Comments History of Present Illness Details Documentation assistance for Jerrod Lizama MD, was provided by Michael Munoz,? Cranberry Grower on 02/15/2025 at 12:08 PM EST. I, Dr. Lizama, have read, observed, and verified documentation. ?? PFS Medical History No pertinent past medical history Surgical History Hx laparoscopic cholecystectomy History of hernia repair Family History Mother Diabetes Hypertension Heart disease Father High cholesterol Arthritis Son ADHD Son No problems noted. Daughter No problems noted. 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 Current occupational exposures/hazards: No Cognitive needs: No Hearing needs: No Vision needs: No Questionnaire Thrive Questionnaire Date Thrive assessed: 08/22/24 I am a: Patient What is your living situation today?: I have a steady place to live Within the past 12 months, did the food you bought not last and you didn't have the money to get more?: Never true Within the past 12 months, did you worry whether your food would run out before you got money to buy more?: Never true Do you have trouble paying for medicines?: No Do you have trouble getting transportation to medical appointments?: No Do you have trouble paying your heating and electricity bill?: No Do you have trouble taking care of your child, family member or friend?: No Do you have trouble with day-to-day activities such as bathing, preparing meals, shopping, managing finances, etc.?: No Are you currently unemployed and looking for a job?: No Are you interested in more education?: No Please select the resources that you would like help with: None Currently or been in a relationship where the following occur: No concerns reported THRIVE Score: 0 DIMA-7 AMB Questionnaire DIMA-7 Date DIMA - 7 assessed: 04/23/24 Source: Developed by Drs. Tucker Grady, Claire Mario, Reymundo Adam and colleagues, with an educational reese from [employer]. Review of Systems Const Denies chills, Denies fatigue, Denies fever(s), Denies headache(s) and Denies weakness ENT Denies dizziness and Denies headache(s) Card Denies dyspnea Resp Denies cough, Denies dyspnea, Denies wheezing and Denies other (shortness of breath) Musc Denies numbness and Denies tingling Neuro Denies dizziness, Denies headache(s), Denies numbness, Denies tingling and Denies weakness Psych Denies anxiety and Denies depression Endo Denies fatigue Aller/Immun Denies wheezing Physical exam (Primary Care) Vital Signs: Last Vital Signs Temp 98.3 F 02/15/25 11:45 Pulse 69 02/15/25 11:45 Resp 12 02/15/25 11:45 BP 104/64 02/15/25 11:45 Pulse Ox 97 02/15/25 11:45 Oxygen Delivery Method Room Air 02/15/25 11:45 BMI result Body Mass Index 42.2 Tobacco/Smoking Status: Tobacco use Status Tobacco use date assessed 04/23/24 02/15/25 11:38 Patient Tobacco Use Status Never used Tobacco 02/15/25 11:38 e-Cigarette/Vaping Use Never Used 02/15/25 11:38 Thrive Assessment: Date of Thrive Assessment Date Thrive assessed 08/22/24 02/15/25 11:38 Currently or been in a relationship where the following occur: No concerns reported Const General: well developed; No acute distress Nutritional Appearance: well nourished Orientation/consciousness: patient oriented x3 HENMT Head: Yes normocephalic and Yes atraumatic Eyes General: appearance normal, both eyes and all related structures Pupils: Equal, round and reactive pupils present EOM: EOMs intact bilaterally Resp Other: Coarse breath sounds at the bases Effort & Inspection: normal respiratory effort Neuro General: patient oriented x3 and gait normal Cranial nerves: Yes Equal, round and reactive pupils present Psych Affect: normal affect Coding Level of Care Code Est Pt Level 4 (29752) Diagnoses HTN (hypertension) I10 Foot pain M79.673 Cough R05.9 Screening for colon cancer Z12.11 Assessment & Plan Assessment & Plan (1) HTN (hypertension): Code(s): I10 - Essential (primary) hypertension Category: Medical Plan: Blood pressure is controlled. Goal is less than 140/90 Continue current medication Hydrate well Encouraged weight loss (2) Foot pain: Code(s): M79.673 - Pain in unspecified foot Category: Medical Plan: Foot pain at 1st metatarsal joint This has resolved However patient had severe pain in is concern regarding gout Checking uric acid level (3) Cough: Code(s): R05.9 - Cough, unspecified Category: Medical Plan: Mild chest congestion and cough Very mild coarseness to the quality his breath sounds and mild upper airway secretions sounds This appears to be improving on its own He can use an antihistamine to help with any underlying allergy or decrease a irway secretions. Call or return to office not improving (4) Screening for colon cancer: Code(s): Z12.11 - Encounter for screening for malignant neoplasm of colon Category: Medical Plan: Due for 1st screening colonoscopy and patient requests [facility] Referred Orders: Orders Complete Blood Count Auto Diff Today Z00.00 - Encounter for general adult medical examination without abnormal findings Lipid Panel Today Z00.00 - Encounter for general adult medical examination without abnormal findings TSH reflex Free T4 Today Z00.00 - Encounter for general adult medical examination without abnormal findings UA CC w/rflx Micro + Cult Today Z00.00 - Encounter for general adult medical examination without abnormal findings Uric Acid Today M79.673 - Pain in unspecified foot Comprehensive [place]. Panel Fast Today Z00.00 - Encounter for general adult medical examination without abnormal findings Prostate Specific Antigen Scr Today Z12.5 - Encounter for screening for malignant neoplasm of prostate Referrals Gastroenterology Referral Z12.11 - Encounter for screening for malignant neoplasm of colon
[2025-02-15 11:45] VITALS: BP 104/64; PULSE 69; RESP 12; TEMP 36.8; O2SAT 97; BMI 42.2
== END 2025-02-15 12:13 | disposition home or self-care (01) ==
LOC: HO.HMCFM 11:29
PROVIDERS: PCP Family Medicine; Visit Provider Family Medicine
DX: I10 Essential (primary) hypertension (principal); M79.673 Pain in unspecified foot; R05.9 Cough, unspecified; Z12.11 Encounter for screening for malignant neoplasm of colon

== ENCOUNTER 2025-04-26 06:15 | Outpatient (REF) | payer OTHER, SELFPAY ==
--- OUTSIDE RECORDS SUMMARY | 2025-04-26 06:19 | XMS_ITS | Clinical Summary ---
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 Active hydroCHLOROthia zide (HYDRODIURIL) 25 MG tablet Take 25 mg by mouth daily. Active predniSONE (DELTASONE) 20 MG tablet 3 tablets X 3 days, 2 tablets X 3 days , 1 tablet X 3 days 18 tablet 04/14/2023 Active Immunizations Immunization Administration Dates Next Due Influenza Quadrivalent MDCK Preservative Free IM 05/18/2022,05/05/2021,05/12/2020,2017 Influenza Quadrivalent Prese rvative Free IM 05/17/2019,05/02/2017 Tdap 06/01/2017 Social History Tobacco Use Types Packs/Day Years Used Date Smoking Tobacco: Never Smokeless Tobacco: Never Tobacco Cessation:Counseling Given: Not Answered Education Answer Date Recorded Are you interested in more education? Not on samantha e 04/14/2023 Are you concerned about learning? Not on file 04/14/2023 No 04/14/2023 No 04/14/2023 Digital Access Answer Date Recorded No 04/14/2023 No 04/14/2023 Reliable internet access at home? Not on file 04/14/2023 Device with a working camera? Not on file Sex and Gender Information Value Date Recorded Sex Assigned at Not on file Legal Sex Male 11:03 AM EDT Gender Identity Not on file Sexual Orientation Not on file Last Filed Vital Signs Vital Sign Reading Time Taken Comments Blood Pressure 133/82 04/14/2023 11:31 AM EDT Pulse 74 04/14/2023 11:31 AM EDT Temperature 36.8 C (98.3 F) 04/14/2023 11:31 AM EDT Respiratory Rate 18 04/14/2023 11:31 AM EDT Oxygen Saturation 97% 04/14/2023 11:31 AM EDT Inhaled Oxygen Concentration - - Weight 114.3 kg (252 lb) 04/14/2023 11:31 AM EDT Height - - Body Mass Index - - Plan of Treatment Health Maintenance Due Date Last Done Comments CREATININE LEVEL 1979 LIPID PANEL 1979 POTASSIUM LEVEL 1979 DEPRESSION SCREENING 1991 HEPATITIS C SCREENING 12/03/1997 HIV ONE-TIME SCREENING (18-65 YEARS) 12/03/1997 SMOKING STATUS SCREENING (Once After 26 Yrs) 12/03/2005 COLOGUARD 12/03/2024 COLONOSCOPY 12/03/2024 COLORECTAL CANCER SCREENING 12/03/2024 FIT TEST 12/03/2024 FOBT 12/03/2024 SIGMOIDOSCOPY 12/03/2024 VIRTUAL COLONOSCOPY 12/03/2024 INFLUENZA VACCINE (#1) 2025 , 05/05/2021, 05/12/2020, Additional history exists COVID-19 VACCINE (2024- season) 2025 06/01/2022, 06/18/2021, 09/18/2020, Additional history exists Adult Td,Tdap Booster 06/01/2027 06/01/2017 HEPATITIS A VACCINES Aged Out No long er eligible based on patient's age to complete this topic HIB VACCINES Aged Out No longer eligi ble based on patient's age to complete this topic MENINGOCOCCAL VACCINES (ACWY) Aged Out No longer eligible based on patient's age to complete this topic MENINGOCOCCAL VACCINES (B) Aged Out N o longer eligible based on patient's age to complete this topic PNEUMOCOCCAL VACCINES (0-49 years) Aged Out No longer eligible based on patient's age to complete this topic Medical Devices Not on file [place] [address] [address] Member Subscriber Plan / Payer (Ef fective 2023-Present) Name:Serafin Jackson Relation to Subscriber:Self Name:Serafin Jackson Payer ID:[id number] (NAIC) Group ID:Not on file Type:PPO Address: [address] [facility] Member Subscriber Plan / Payer (Ef fective 2023-Present) Name:Serafin Jackson Relation to Subscriber:Self Name:Serafin Jackson Payer ID:[id number] (NAIC) Group ID:Not on file Type:PPO Address: [address] [facility] [address] [employer] [facility] [place] [employer] [place] [address] [place] [address] [employer] [place] [address] [place] [address] [employer] Care Teams Elocution Teacher Relationship Specialty Start Date End Date Jerrod Lizama MD [address] [place] [address] PCP - General Family Medicine 04/14/23 Additional Source Comments The information contained in this document represents components of the legal health record. It is not the complete legal health record.[facility]
[2025-04-26 06:34] LABS: MANUAL DIFF FLAG NO
[2025-04-26 07:45] LABS: Hematocrit 39.4 % (42.0-52.0); Hemoglobin 13.8 g/dl (14.0-18.0); Imm Gran Abs Auto 0.03 X10*3/uL (0.00-0.03); Imm Gran Pct Auto 0.4 % (0.0-0.4); Lymphocytes Absolute Auto 1.3 X10*3/uL (1.2-4.9); Mean Corpuscular HGB Conc 35.0 g/dl (31.0-36.0); Mean Corpuscular Hemoglobin 31.9 pg (27.0-33.0); Mean Corpuscular Volume 91.0 fL (80.0-98.0); NRBC Abs Auto 0.000 X10*3/uL (0.0-0.012); NRBC Pct Auto 0.0 /100WBC (0.0-0.2); Platelet Count 307 X10*3/uL (160-400); Red Blood Count 4.33 X10*6/uL (4.60-5.80); White Blood Count 7.8 X10*3/uL (4.8-10.8)
[2025-04-26 08:35] LABS: Appearance Urine Clear; Glucose Urine UA Negative (Negative); PH 5.5 (5.0-9.0); Specific Gravity - Urine 1.020 (1.005-1.025)
[2025-04-26 08:37] LABS: Alanine Aminotransferase 41 U/L (0-40); Albumin Level 4.4 g/dL (3.5-5.0); Alkaline Phosphatase 67 U/L (39-117); Anion Gap 12 (12-20); Aspartate Amino Transferase 40 U/L (5-37); Blood Urea Nitrogen 18 mg/dL (9-16); Calcium 9.3 mg/dL (8.4-10.2); Carbon Dioxide 25 mmol/L (22-29); Chloride 106 mmol/L (96-108); Cholesterol 151 mg/dL (<200); Estimated Glomerular Filt Rate > 60; HDL Cholesterol 35 mg/dL (>40); Potassium 3.9 mmol/L (3.3-5.1); Sodium 139 mmol/L (135-145); Total Protein 7.5 g/dL (6.5-8.0); Triglycerides 215 mg/dL (<150); Uric Acid 7.9 mg/dL (3.4-7.0)
== END 2025-04-26 06:16 | disposition home or self-care (01) ==
LOC: HO.LAB 06:15
PROVIDERS: PCP Family Medicine; Visit Provider Family Medicine
DX: Z00.00 Encounter for general adult medical examination without abnormal findings (principal); M79.673 Pain in unspecified foot; Z12.5 Encounter for screening for malignant neoplasm of prostate; Z13.6 Encounter for screening for cardiovascular disorders
CPT/HCPCS: 36415; 80053; 80061; 81003; 84153; 84443; 84550; 85025

== ENCOUNTER 2025-05-03 09:11 | Outpatient (AMB) | payer OTHER, SELFPAY ==
--- NOTE | 2025-05-03 09:19 | A.OFFPC_ITS ---
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 Required: No Allergies No Known Allergies Allergy (Verified 05/03/25 09:25) Medication List - Last Reconciled 05/03/25 by ANGELIQUE Owens- atorvastatin 20 mg PO BEDTIME 90 days lisinopril-hydrochlorothiazide 20-25 mg 1 tab PO DAILY 90 days loratadine (Claritin) 10 mg PO DAILY multivitamin 1 tab PO DAILY omeprazole 20 mg PO DAILY Tobacco use date assessed: 05/03/25 Dental Screening Dental Screen Date: 05/03/25 Did you have a dental visit in the last 12 months?: Yes Did you have a dental problem in the last 6 months where you did not have access to dental care?: No Was dental information given to patient?: Patient has dentist HPI HPI Comments History of Present Illness Details 44 y/o M with allergies, GERD, HTN, HLD, anemia, gout, fatty liver, RENETTA on CPAP, obesity, sciatica Surgical hx: Y Fhx: Y Social hx: Y Health Maintenance Tdap 2016 Flu will get at work PSA 04/26/25 Colon referred to [facility] scheduled on [facility] Op[facility]o January 2025 no glasses/contacts History of Present Illness The patient is a 44-year-old male presenting for a wellness visit and complete physical examination. Essential Hypertension: - Controlled with lisinopril, hydrochlor othiazide. Hyperlipidemia: - Managed with atorvastatin; HDL low at 35 mg/dL. Gout: - Infrequent flare-ups, controlled curre ntly, uric acid elevated. GERD: - Managed with esomeprazole, effective c ontrol. Seasonal Allergies: - Managed with Emy. Obesity: - BMI 42.1. Sciatica with Numbness and Tingling in Left Foot: - Gabapentin 600 mg at bedtime, effectiv e control. - Managed by PSS[facility], reports no changes, w onders if PCP can take over RX. Sleep Apnea: - CPAP use since 2021, effective. Elevated Liver Enzymes: - Mild elevation, consistent with fatty liver. Mild Anemia: - Longstanding, monitoring with colonosc opy planned. Health Maintenance - Tetanus vaccination completed in 2016, effective until 2026. - Colonoscopy scheduled for 07 June at [place]. - Plans to receive flu vaccination by e end may. - Monitoring for mildly elevated liver e nzymes and longstanding mild anemia. Review of Systems - Musculoskeletal: Reports past episodes of gout. Denies current symptoms. - Gastrointestinal: Denies current GERD symptoms with Nexium use. - Respiratory: Denies issues with CPAP. - Neurological: Reports sciatica with ti ngling in left foot. - General: Denies anxiety or depression. - Other systems: Denies new issues. Physical Exam General: Well developed, well nourished, in no acute distress. Appears stated age. Head: Normocephalic, atraumatic. Eyes: Pupils are equal, round and reactive to light and accommodation. Conjunctivae are clear. Scleras nonicteric bilat. Vision grossly normal. L Ears: TMs clear AU, EACS WNL. Nose: Patent, without discharge. Neck: No carotid bruit bilat. Supple, no adenopathy or thyromegaly. No pain or tenderness noted. Breast: Edu on SBE. Lungs: Clear to auscultation bilaterally. No rales, rhonchi or wheeze noted. Good air flow in all friedman. Heart: Regular rate and rhythm. No murmurs, click, rubs or gallops are noted. Abdomen: Bowel sounds present in all quadrants. The abdomen is soft, nontender, with no masses or organomegaly noted. No hernias are noted. No pain in the belly. : Deferred. Reviewed ABRIL & recommendations Pulses: Peripheral pulses are equal and palpable bilaterally. Extremities: No clubbing, cyanosis nor edema is noted. Left foot has issues related to sciatica. Neurologic: Gait and station normal. Cranial Nerves 2-12 intact. Motor strength grossly symmetrical and intact. No sensory loss. Balance normal. Skin: No rashes, ulcers, or lesions noted. Turgor is good. Skin color is good. Hair and nails are without abnormalities. Psych: Normal eye contact, affect and mood appropriate, and normal interactions. Patient is alert and appropriate to context. No anxiety or depression reported. Results Labs 04/26/25 anemia, ^LFT, Lipids not at goal, ^ uric acid otherwise Wnl Discussion Notes During our discussion, I reviewed the diagnosis of gout with the patient and explained the impact of diet and hydrochlorothiazide on uric acid levels, offering indomethacin as a treatment option during flare-ups. We discussed the patient's hyperlipidemia, currently managed with atorvastatin, noting the decrease in HDL levels and the importance of physical activity to address this. The effectiveness of the patient's current GERD treatment with Nexium was confirmed, and the seasonal allergies management changed from Claritin to Emy. We talked about the management of sciatica with gabapentin, and I took over the prescription management. As part of health maintenance, we scheduled a colonoscopy for the patient's mild anemia and advised on receiving a flu vaccine. Follow-up was arranged for three to six months, with an emphasis on fa sting cholesterol tests to monitor lipid control. The patient consented to the proposed management plans. Patient was given time to ask questions. All questions were answered to their satisfaction. Assessment and Plan 1. Essential Hypertension - Continue current regimen, monitor bloo d pressure. 2. Hyperlipidemia - Continue atorvastatin, increase physic al activity for HDL. 3. Gout - Prescribe indomethacin for flares; con compliance assistant dietary changes. - If worsening, may want to consider cinthya nging HCTZ as this can worsen gout 4. GERD - Maintain Nexium, symptoms controlled. 5. Seasonal Allergies - Emy noted as effective. 6. Sciatica - Gabapentin at night effective. - PCP to take over RX; i have sent 1 yea r of refills 7. Sleep Apnea - Maintain current CPAP use. 8. Elevated Liver Enzymes - Monitor, consistent with fatty liver. 9. Mild Anemia - Colonoscopy planned for further evalua tion. Patient Instructions - Take indomethacin as needed with food for gout flare-ups. - Continue taking atorvastatin, lisinopr il, hydrochlorothiazide, and gabapentin as prescribed. - Keep using CPAP for sleep apnea every night. - Stay active to help increase HDL ofelia sterol levels. - Schedule and attend a colonoscopy at t he end of May. - Get a flu shot by the end of May. - Fu with Dr Deepak sanchez3-6 months for well c ontrolled hypertension and chronic conditions Consent Patient was informed and verbally consented to the use of an ambient scribe for clinic note documentation during this visit. [facility] Medical History (Updated 05/03/25 @ 09:49 by Paty Alvarez, [facility]) High cholesterol HTN (hypertension) Left sided sciatica Low HDL (under 40) No pertinent past medical history Strain of right Achilles tendon Surgical History History of hernia repair Hx laparoscopic cholecystectomy Family History Mother Diabetes Hypertension Heart disease Father High cholesterol Arthritis Son ADHD Son No problems noted. Daughter No problems noted. 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 1. Little interest or pleasure in doing things: not at all 2. Feeling down, depressed, or hopeless: not at all 3. Trouble falling or staying asleep, or sleeping too much: not at all 4. Feeling tired or having little energy: not at all 5. Poor appetite or overeating: not at all 6. Feeling bad about yourself - or that you are a failure or have let yourself or your family down: not at all 7. Trouble concentrating on things, such as reading the newspaper or watching television: not at all 8. Moving or speaking so slowly that other people could have noticed. Or the opposite - being so fidgety or restless that you have been moving around a lot more than usual: not at all 9. Thoughts that you would be better off or of hurting yourself in some way: not at all Total score: 0 Depression Screening Interpretation: Negative Depression Screening Done: Yes 53192 - PHQ-9 Billing: Yes Source: Developed by Drs. Tucker Grady, Claire Mario, Reymundo Adam and colleagues, with an educational reese from [employer]. Thrive Questionnaire Date Thrive assessed: 05/03/25 I am a: Patient What is your living situation today?: I have a steady place to live Within the past 12 months, did the food you bought not last and you didn't have the money to get more?: Never true Within the past 12 months, did you worry whether your food would run out before you got money to buy more?: Never true Do you have trouble paying for medicines?: No Do you have trouble getting transportation to medical appointments?: No Do you have trouble paying your heating and electricity bill?: No Do you have trouble taking care of your child, family member or friend?: No Do you have trouble with day-to-day activities such as bathing, preparing meals, shopping, managing finances, etc.?: No Are you currently unemployed and looking for a job?: No Are you interested in more education?: No Please select the resources that you would like help with: None Currently or been in a relationship where the following occur: No concerns reported THRIVE Score: 0 DIMA-7 AMB Questionnaire DIMA-7 Date DIMA - 7 assessed: 05/03/25 Feeling nervous, anxious, or on edge: 0 = Not at all Not being able to stop or control worryin = Not at all Worrying too much about different things: 0 = Not at all Trouble relaxin = Not at all Being so restless that it is hard to sit still: 0 = Not at all Becoming easily annoyed or irritable: 0 = Not at all Feeling afraid as if something awful might happen: 0 = Not at all Total DIMA-7 score (0-4 normal; 5-9 mild; 10-14 moderate; 15-21 severe): 0 Source: Developed by Drs. Tucker Grady, Claire Mario, Reymundo Adam and colleagues, with an educational reese from [employer]. DIMA-7 Assessment Billing DIMA-7 Assessment Tool: DIMA-7 Assessment 62276 Physical exam (Primary Care) Tobacco/Smoking Status: Tobacco use Status Tobacco use date assessed 04/23/24 05/03/25 09:19 Patient Tobacco Use Status Never used Tobacco 05/03/25 09:19 e-Cigarette/Vaping Use Never Used 05/03/25 09:19 Depression Screening Interpretation: Negative Thrive Assessment: Date of Thrive Assessment Date Thrive assessed 08/22/24 05/03/25 09:19 Currently or been in a relationship where the following occur: No concerns reported Coding Level of Care Code Est Pt Prev Care 40-64y(70326) Diagnoses Adult general medical exam Z00.00 Essential hypertension I10 Mixed hyperlipidemia E78.2 Gastroesophageal reflux disease without esophagitis K21.9 Esophagitis presence: without esophagitis NAFLD (nonalcoholic fatty liver disease) K76.0 RENETTA (obstructive sleep apnea) G47.33 Adult BMI 40.0-44.9 kg/sq m Z68.41 Gout M10.9 Gout site: foot Encounter type: sequela Chronicity: chronic Presence of tophus: without tophus Additional Codes DIMA-7 Assessment Billing - DIMA-7 Assessment Tool: DIMA-7 Assessment 52883 ([id number]) PHQ-9 - 47466 - PHQ-9 Billing: Yes ([id number]) Assessment & Plan Assessment & Plan (1) Adult general medical exam: Onset Date: ~05/03/25 Code(s): Z00.00 - Encounter for general adult medical examination without abnormal findings Category: Medical (2) Essential hypertension: Code(s): I10 - Essential (primary) hypertension Category: Medical (3) Mixed hyperlipidemia: Code(s): E78.2 - Mixed hyperlipidemia Category: Medical (4) GERD (gastroesophageal reflux disease): Code(s): K21.9 - Gastro-esophageal reflux disease without esophagitis Category: Medical Qualifiers: Esophagitis presence: without esophagitis Qualified Code(s): K21.9 - Gastro-esophageal reflux disease without esophagitis (5) NAFLD (nonalcoholic fatty liver disease): Code(s): K76.0 - Fatty (change of) liver, not elsewhere classified Category: Medical (6) RENETTA (obstructive sleep apnea): Code(s): G47.33 - Obstructive sleep apnea (adult) (pediatric) Category: Medical (7) Adult BMI 40.0-44.9 kg/sq m: Code(s): Z68.41 - Body mass index [BMI] 40.0-44.9, adult Category: Medical (8) Gout: Code(s): M10.9 - Gout, unspecified Category: Medical Qualifiers: Gout site: foot Encounter type: sequela Chronicity: chronic Presence of tophus: without tophus Plan . Orders: Orders Hemoglobin A1c 3 Months E78.2 - Mixed hyperlipidemia, I10 - Essential (primary) hypertension Lipid Panel 3 Months E78.2 - Mixed hyperlipidemia, I10 - Essential (primary) hypertension Comprehensive [place]. Panel Fast 3 Months E78.2 - Mixed hyperlipidemia, I10 - Essential (primary) hypertension Medications: New L.acidophil-L.plantar-Bifido 7 15 billion cell caps PO indomethacin administer with food or milk 25 mg PO TID PRN 30 caps 0RF gout esomeprazole magnesium (Nexium) 20 mg PO DAILY fexofenadine (Emy Allergy) 180 mg PO DAILY 14 tabs 0RF gabapentin 600 mg PO BEDTIME 90 tabs 2RF Refilled atorvastatin 20 mg PO BEDTIME 90 tabs 2RF 90 days lisinopril-hydrochlorothiazide 20-25 mg 1 tab PO DAILY 90 tabs 3RF 90 days Patient Instructions: Health screenings for men You should visit your health care provider regularly, even if you feel healthy. The purpose of these visits is to: Screen for medical issues Assess your risk for future medical problems Encourage a healthy lifestyle Update vaccinations and other preventive care services Help you get to know your provider in case of an illness Information Even if you feel fine, you should still see your provider for regular checkups. These visits can help you avoid problems in the future. For example, the only way to find out if you have high blood pressure is to have it checked regularly. High blood sugar and high cholesterol level also may not have any symptoms in the early stages. Simple blood tests can check for these conditions. There are specific times when you should see your provider or receive specific health screenings. The [place] Preventive Services Task Force publishes a list of recommended screenings. Below are screening guidelines for men ages 40 to 64. BLOOD PRESSURE SCREENING Have your blood pressure checked at least once every year. Watch for blood pressure screenings in your area. Ask your provider if you can stop in to have your blood pressure checked. Ask your provider if you need your blood pressure checked more often if: You have diabetes, heart disease, kidney problems, or are overweight or have certain other health conditions You have a first-degree relative with high blood pressure You are Black Your blood pressure top number is from 120 to 129 mm Hg, or the bottom number is from 70 to 79 mm Hg If the top number is 130 mm Hg or greater or the bottom number is 80 mm Hg or greater, this is considered stage 1 hypertension. Schedule an appointment with your provider to learn how you can lower your blood pressure. Effects of age on blood pressure CHOLESTEROL SCREENING Cholesterol screening should begin at age 35 for men with no known risk factors for coronary heart disease. Repeat cholesterol screening should take place: Every 5 years for men with normal cholesterol levels More often if changes occur in lifestyle (including weight gain and diet) More often if you have diabetes, heart disease, kidney problems, or certain other conditions COLORECTAL CANCER SCREENING If you are under age 45, talk to your provider about getting screened. You may need to be screened if you have a strong family history of colon cancer or polyps. Screening may also be considered if you have risk factors such as a history of inflammatory bowel disease or polyps. If you are age 45 to 75, you should be screened for colorectal cancer. There are several screening tests available: A stool-based fecal occult blood (gFOBT) or fecal immunochemical test (FIT) every year A stool sDNA test every 1 to 3 years Flexible sigmoidoscopy every 5 years or every 10 years with stool testing FIT done every year CT colonography (virtual colonoscopy) every 5 years Colonoscopy every 10 years You may need a colonoscopy more often if you have risk factors for colorectal cancer, such as: Ulcerative colitis A personal or family history of colorectal cancer A history of growths in your colon called adenomatous polyps DENTAL EXAM Go to the dentist once or twice every year for an exam and cleaning. Your dentist will evaluate if you have a need for more frequent visits. DIABETES SCREENING All adults who do not have risk factors for diabetes should be screened starting at age 35 and repeated every 3 years. If you have other risk factors for diabetes, such as a first degree relative with diabetes, overweight or obesity, high blood pressure, prediabetes, or a history of heart disease, you may be tested more often. If you are overweight and have other risk factors, such as high blood pressure and are planning to become , screening is recommended. EYE EXAM Have an eye exam every 2 to 4 years ages 40 to 54 and every 1 to 3 years ages 55 to 64. Your provider may recommend more frequent eye exams if you have vision problems or glaucoma risk. Have an eye exam that includes an examination of your retina (back of your eye) at least every year if you have diabetes. IMMUNIZATIONS Commonly needed vaccines include: Flu shot: get one every year COVID-19 vaccine: ask your provider what is best for you Tetanus-diphtheria and acellular pertussis (Tdap) vaccine: have as one of your tetanus-diphtheria vaccines if you did not receive it as an adolescent Tetanus-diphtheria: have a booster (or Tdap) every 10 years Varicella vaccine: receive 2 doses if you never had chickenpox or the varicella vaccine and were born in 1980 or after Hepatitis B vaccine: receive 2, 3, or 4 doses, depending on your exact circumstances, if you did not receive these as a child or adolescent, until age 59 Shingles (herpes zoster) vaccine: at or after age 50 Ask your provider if you should receive other immunizations, especially if you have certain medical conditions, such as diabetes or are at increased risk for some diseases such as pneumonia. INFECTIOUS DISEASE SCREENING Screening for hepatitis C: all adults ages 18 to 79 should get a one-time test for hepatitis C. Screening for human immunodeficiency virus (HIV): all people ages 15 to 65 should get a one-time test for HIV. Depending on your lifestyle and medical history, you may need to be screened for infections such as syphilis, chlamydia, and other infections. LUNG CANCER SCREENING You should have an annual screening for lung cancer with low-dose computed tomography (LDCT) if: You are age 50 to 80 years AND You have a 20 pack-year smoking history AND You currently smoke or have quit within the past 15 years OSTEOPOROSIS SCREENING If you are age 50 to 64 and have risk factors for osteoporosis, you should discuss screening with your provider. Risk factors can include long-term steroid use, low body weight, smoking, heavy alcohol use, having a fracture after age 50, or a family history of hip fracture or osteoporosis. Osteoporosis PHYSICAL EXAM All adults should visit their provider from time to time, even if they are healthy. The purpose of these visits is to: Screen for diseases Assess risk of future medical problems Encourage a healthy lifestyle Update vaccinations and other preventive care services Maintain a relationship with a provider in case of an illness Your height, weight, and body mass index (BMI) should be checked at every exam. During your exam, your provider may ask you about: Depression and anxiety Diet and exercise Alcohol and tobacco use Safety, such as use of seat belts and smoke detectors Your medicines and risk for interactions PROSTATE CANCER SCREENING If you're 55 through 69 years old, before having the test, talk to your provider about the pros and cons of having a PSA test. Ask about: Whether screening decreases your chance of dying from prostate cancer. Whether there is any harm from prostate cancer screening, such as side effects from testing or overtreatment of cancer when discovered. Whether you have a higher risk of prostate cancer than others. If you are age 55 or younger, screening is not generally recommended. You should talk with your provider about if you have a higher risk for prostate cancer. Risk factors include: Having a family history of prostate cancer (especially a brother or father) Being If you choose to be tested, the PSA blood test is repeated over time (yearly or less often), though the best frequency is not known. Prostate examinations are no longer routinely done on men with no symptoms. Prostate cancer SKIN EXAM Your provider may check your skin for signs of skin cancer, especially if you're at high risk. People at high risk include those who have had skin cancer before, have close relatives with skin cancer, or have a weakened immune system. TESTICULAR EXAM The [place] Preventive Services Task Force (USPSTF) now recommends against performing testicular self-exams. Doing testicular self-exams has been shown to have little to no benefit.
[2025-05-03 09:21] VITALS: BP 104/70; PULSE 76; RESP 13; TEMP 36.4; O2SAT 97; BMI 42.1
--- OUTSIDE RECORDS SUMMARY | 2025-05-03 09:57 | XMS_ITS | Clinical Summary ---
Author Organization 175 [facility] Address [address] [place] [address] Phone Care Team Providers Care Board Hammer Operator Name Role Phone Jerrod Lizama MD Primary Care Provider [phone] Allergies No known active allergies Medications atorvastatin (LIPITOR) 20 mg tablet Take 1 tablet (20 mg total) by mouth at bedtime. Active lisinopril-hydr oCHLOROthiazide (PRINZIDE,ZESTO RETIC) 20-25 mg per tablet Take 1 tablet by mouth 1 (one) time each day. Active loratadine (CLARITIN) 10 mg tablet Take 1 tablet (10 mg total) by mouth 1 (one) time each day. Active multivitamin with minerals tablet Take 1 tablet by mouth 1 (one) time each day. Active omeprazole (PriLOSEC) [address] capsule Take 1 capsule (20 mg total) by mouth 1 (one) time each day. Do not crush or chew. Active Active Problems Patient Care Coordination No te Formatting of this note migh t be different from the original. GRAZ No additional problems on file Encounters Date Type Department Care Team Description 02/26/2025 Telephone [address] [address] Nilsa Hernández MD 02/18/2025 Telephone [address]astroenter[address] [address] Nilsa Hernández MD from Last 3 Months Social History Tobacco Use Types Packs/Day Years Used Date Smoking Tobacco: Never Assessed Sex and Gender Information Value Date Recorded Sex Assigned at Not on file Legal Sex Male 1:31 PM EDT Gender Identity Not on file Sexual Orientation Not on file Plan of Treatment Upcoming Encounters Date Type Department Care Team (Late st Contact Info) Description 06/07/2025 8:00 AM EDT Appointment [facility] Endoscopy [address] [place] [address] Nilsa Hernández MD [address] [facility] [address] [place] [address] Health Maintenance Due Date Last Done Comments DTaP,Tdap,and Td Vaccines (1 - Tdap) 12/03/1998 Hepatitis B Vaccines (1 of 3 - 19+ 3-dose series) 12/03/1998 Cholesterol Screening (Lipid Panel) 03/09/2024 Colorectal Cancer Screening: Colonoscopy 03/09/2024 HIV Screening 03/09/2024 Hepatitis C Screening 03/09/2024 Social Influencers of Health Screening 03/09/2024 Depression Screening 08/08/2024 COVID-19 Vaccine ( - 2023-2 5 season) 2025 Influenza Vaccine (#1) 2025 HIB Vaccines Aged Out No longer eligi ble based on patient's age to complete this topic HPV Vaccines Aged Out No longer eligi ble based on patient's age to complete this topic Hepatitis A Vaccines Aged Out No long er eligible based on patient's age to complete this topic IPV Vaccines Aged Out No longer eligi ble based on patient's age to complete this topic MMR Vaccines Aged Out No longer eligi ble based on patient's age to complete this topic Meningococcal ACWY Vaccine Aged Out N o longer eligible based on patient's age to complete this topic Meningococcal B Vaccine Aged Out No l onger eligible based on patient's age to complete this topic Pneumococcal Vaccine: Pediat rics (0 to 5 Years) and At-Risk Patients (6 to 49 Years) Aged Out No longer eligible b ased on patient's age to complete this topic RSV Immunization Patients Un cabrera 20 months Aged Out No longer eligible b ased on patient's age to complete this topic Varicella Vaccines Aged Out No longer eligible based on patient's age to complete this topic Insurance [employer] Care Teams Board Hammer Operator Relationship Specialty Start Date End Date Jerrod Lizama MD [address] [place] [address] Dr George [place] PCP - General Family Medicine 02/18/25
== END 2025-05-03 09:44 | disposition home or self-care (01) ==
LOC: HO.HMCFM 09:12
PROVIDERS: PCP Family Medicine; Visit Provider Nurse Practitioner Family
DX: Z00.00 Encounter for general adult medical examination without abnormal findings (principal); I10 Essential (primary) hypertension; Z68.41 Body mass index [BMI] 40.0-44.9, adult; E78.2 Mixed hyperlipidemia; K21.9 Gastro-esophageal reflux disease without esophagitis; K76.0 Fatty (change of) liver, not elsewhere classified; G47.33 Obstructive sleep apnea (adult) (pediatric); M10.9 Gout, unspecified

== ENCOUNTER → 2025-05-03 09:11 | Outpatient (BNVA) | payer OTHER, SELFPAY | PROVIDERS: PCP Family Medicine; Visit Provider Nurse Practitioner Family | DX: Z00.00 Encounter for general adult medical examination without abnormal findings (principal); I10 Essential (primary) hypertension; M10.9 Gout, unspecified; K21.9 Gastro-esophageal reflux disease without esophagitis; E66.9 Obesity, unspecified; J30.2 Other seasonal allergic rhinitis; M54.30 Sciatica, unspecified side; G47.30 Sleep apnea, unspecified; R79.89 Other specified abnormal findings of blood chemistry; D64.9 Anemia, unspecified; E78.2 Mixed hyperlipidemia; K76.0 Fatty (change of) liver, not elsewhere classified; G47.33 Obstructive sleep apnea (adult) (pediatric); Z68.41 Body mass index [BMI] 40.0-44.9, adult | CPT/HCPCS: 96127 ==

== ENCOUNTER 2025-05-10 15:21 | Outpatient (REF) | payer OTHER, SELFPAY ==
--- OUTSIDE RECORDS SUMMARY | 2025-05-10 15:24 | XMS_ITS | Clinical Summary ---
Author Organization 175 [facility] Address [address] [place] [address] Phone Care Team Providers Care Sales And Service Consultant Name Role Phone Jerrod Lizama MD Primary Care Provider [phone] Allergies No known active allergies Medications atorvastatin [...] Department Care Team Description 02/26/2025 Telephone [address]astroenterology [address] [address] Nilsa Hernández MD 02/18/2025 Telephone Gastroenterology [address] [address] Nilsa Hernández MD from Last [...] Info) Description 06/07/2025 8:00 AM EDT Appointment [facility] Endoscopy [address] [place] [address] Nilsa Hernández MD [address] [facility] [address] [place] [address] Health Maintenance Due Date Last Done Comments Colorectal Cancer Screening: Colonoscopy 1979 DTaP,Tdap,and Td Vaccines (1 - Tdap) 12/03/1998 Hepatitis B Vaccines (1 of 3 - 19+ 3-dose series) 12/03/1998 HPV Vaccines (1 - 3-dose SCD M series) 12/03/2006 Cholesterol Screening (Lipid Panel) 03/09/2024 HIV Screening 03/09/2024 Hepatitis C Screening 03/09/2024 Social Influencers of Health Screening 03/09/2024 Depression Screening 08/08/2024 COVID-19 Vaccine (1 - 2023-2 5 season) 2025 Influenza Vaccine (#1) 2025 RSV Immunization Adult Patie nts (1 - 1-dose 75+ series) 12/03/2054 HIB Vaccines Aged Out No longer eligi [...] on patient's age to complete this topic Goals Goal Patient Goal Type Associated Problems Recent Progress Patient-Stated? Author Autogenerat ed Goal Care Plan Autogenerated Problem No Rachelle Montiel Additional Health Concerns Active Problems Noted Date Diagnosed Date Autogenerated Problem 05/09/2025 Insurance [employer] Care Teams Sales And Service Consultant Relationship Specialty Start Date End Date Jerrod Lizama MD [address] [place] [address] Dr George [place] PCP - General Family Medicine 02/18/25
--- OUTSIDE RECORDS SUMMARY | 2025-05-10 15:24 | XMS_ITS | Clinical Summary ---
Author Organization [facility] Address [address] [facility] [address] [place] [phone] Phone Care Team Providers Care Counterintelligence Specialist Name Role Phone Jerrod Lizama MD Primary [...] topic Medical Devices Not on file Insurance [place] [address] Member Subscriber Plan / Payer (Ef fective 2023-Present) Name:Serafin Jackson Relation to Subscriber:Self Name:Serafin Jackson Payer ID:[id number] (NAIC) Group ID:Not on file Type:PPO Address: [address] [employer] [facility] Member Subscriber Plan / Payer (Ef fective 2023-Present) Name:Serafin Jackson Relation to Subscriber:Self Name:Serafin Jackson Payer ID:[id number] (NAIC) Group ID:Not on file Type:PPO Address: [address] [employer] [facility] [employer] [address] [employer] [facility] [place] [employer] [place] [address] [place] [address] [place] [address] [employer] [place] [address] [place] [address] [employer] PLUS Care Teams Counterintelligence Specialist Relationship Specialty Start Date End Date Jerrod Lizama MD [address] [place] [address] PCP - General Family Medicine 04/14/23 Additional Source Comments The information contained in this document represents components of the legal health record. It is not the complete legal health record.[facility]
[2025-05-10 17:30] LABS: Appearance Urine Clear; Glucose Urine UA Negative (Negative); PH 7.5 (5.0-9.0); Specific Gravity - Urine 1.015 (1.005-1.025)
== END 2025-05-10 15:22 | disposition home or self-care (01) ==
LOC: HO.LAB 15:21
PROVIDERS: PCP Family Medicine; Visit Provider Family Medicine
DX: Z00.00 Encounter for general adult medical examination without abnormal findings (principal); R31.9 Hematuria, unspecified
CPT/HCPCS: 81003; 87086